=== PATIENT | female | born 1945 | race Caucasian/White ===

== ENCOUNTER 2020-01-31 14:45 | Outpatient (CLI) | payer MEDICARE, SELFPAY ==
--- NOTE | ~2020-01-31 | XR_ITS ---
EXAMINATION: XR knee RT min 4V DATE: 01/31/2020 15:01 INDICATION: Right knee pain. TECHNIQUE: 4 views of right knee were obtained. COMPARISON: Right knee radiograph 02/10/2011 FINDINGS: Bone alignment is normal. No fracture. There is mild osteoarthritis of patellofemoral allyson rtment. No knee joint effusion. IMPRESSION: 1. Mild right knee osteoarthritis. Reviewed, dictated and finalized at location A.
== END 2020-01-31 14:46 | disposition home or self-care (01) ==
PROVIDERS: PCP Internal Medicine; Visit Provider Nurse Practitioner
DX: M17.11 Unilateral primary osteoarthritis, right knee (principal)
CPT/HCPCS: 73564

== ENCOUNTER 2020-03-06 13:00 | Outpatient (RCR) | payer MEDICARE, SELFPAY ==
--- NOTE | 2020-03-06 14:09 | PTOPEVAL ---
PHYSICAL THERAPY EVALUATION AND PLAN OF CARE Thank you for referring Joselyn Sauceda to [facility] [place] [facility] [place]. Joselyn was not scheduled for further appointments at this time. She will call within 30 days of initiating care if she requires further services. Please review, sign, date and return this plan of care LUIS. I agree with and certify that the following plan of care is medically necessary. Referring Physician Date Attending Provider: Summer Charlton, ADVISER SALES-C Evaluation Diagnosis right knee pain Subjective Information Joselyn is here for c/o right Query Text:As Reported By Patient/ knee pain. She describes that Family 5 years ago she received a guided injection and the knee has done great until a few months ago. 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 The knee has started aching again. She years a compression brace on the knee, uses ice as needed, and started taking glucosamine several weeks ago. [employer] has stated that she is able to give her a chair if she has an order from physician. Self Report Pain Assessment Right Knee(s) Reported Pain Level 0 Pain Description Aching,Pressure Lowest Pain Intensity 0 Greatest Pain Intensity 8 Pain Aggravating Factors Weight Bearing/Standing Pain Behaviors None Pain Relief Interventions Used By Ice,Inactivity/Rest Patient Lower Extremity Muscle Strength Testing Hip Strength Left Hip Flexion Strength 5 Normal Hip Extension Strength 4- Good - Hip Abduction Strength 3+ Fair + Right Hip Flexion Strength 5 Normal Hip Extension Strength 4- Good - Hip Abduction Strength 4 Good Knee Strength Right Knee Flexion Strength 5 Normal Knee Extension Strength 4+ Good + Muscle Length Testing Piriformis w/Hip Flexion >90 Degrees (R) Mild Tightness,(L) Mild Tightness Left Hamstring Length -5 Query Text:(90 - 90 Position) Right Hamstring Length -5 Query Text:(90 - 90 Position) Stair Climbing Assessment Stair Climbing Assistive Devices Railings Number of Steps Climbed (Steps) 4 Number of Repetitions (Repetitions) 2 Technique Alternating Steps Stair Climbing Ability Independent Stair Climbing Comments right LE: hip adduction and
--- NOTE | 2020-04-08 08:13 | PCPTNOTE ---
PHYSICAL THERAPY DISCHARGE NOTE Attending Provider: Summer Charlton, SHAINA Patient:Joselyn Sauceda Date of :1945 Patient has not returned for any further treatments since 03/06/2020, therefore she will be discharged at this time. She was evaluated on 03/06/2020. At initial visit she was provided with home exercise program. Her chart was put on hold for 30 days while she performed HEP. She has not called with any questions or concerns in that time. Thank you for referring this patient to [facility]. Please review, sign, date and return this discharge summary LUIS. I have been updated about the patient's current status and I agree with discharge from the above service at this time. Referring Physician Date
== END 2020-04-08 13:59 | disposition home or self-care (01) ==
LOC: ANHPT 13:00
PROVIDERS: PCP Internal Medicine; Visit Provider Clinical Nurse Specialist
DX: M25.569 Pain in unspecified knee (principal)
CPT/HCPCS: 97110; 97161

== ENCOUNTER 2020-06-27 10:10 | Outpatient (NON) | payer MEDICARE, SELFPAY ==
[2020-06-28 13:35] LABS: SARS-CoV-2 RNA PCR Negative
== END 2020-06-27 10:11 ==
LOC: ANHCOVIDDT 10:11
PROVIDERS: PCP Internal Medicine; Visit Provider Clinical Nurse Specialist
DX: Z20.828 Contact with and (suspected) exposure to other viral communicable diseases (principal)
CPT/HCPCS: 87635; C9803; U0003

== ENCOUNTER 2021-03-03 12:31 | Outpatient (CLI) | payer MEDICARE, OTHER, SELFPAY ==
--- NOTE | ~2021-03-03 | XR_ITS ---
XR shoulder LT min 2V DATE: 03/03/2021 12:53 INDICATION: Left shoulder pain. No known injury. TECHNIQUE: 4 views COMPARISON: None FINDINGS: There is osteopenia. No fracture or dislocation, periosteal reaction or bone destruction or abnormal soft tissue calcifica tion of the left shoulder. Normal alignment at the glenohumeral and acromioclavicular joints. There are old healed fracture deformities of the posterolateral aspect of the left seventh and eighth ribs. Diffuse idiopathic skeletal hyperostosis of the thoracic spine. IMPRESSION: Osteopenia No significant abnormality of the left shoulder Reviewed, dictated and finalized at location B.
== END 2021-03-03 12:32 | disposition home or self-care (01) ==
PROVIDERS: PCP Internal Medicine; Visit Provider Clinical Nurse Specialist
DX: M85.812 Other specified disorders of bone density and structure, left shoulder (principal)
CPT/HCPCS: 73030

== ENCOUNTER 2021-04-08 11:00 | Outpatient (RCR) | payer MEDICARE, SELFPAY ==
--- NOTE | 2021-03-11 13:56 | PTOPEVAL ---
PHYSICAL THERAPY EVALUATION Thank you for referring Joselyn Sauceda to [facility].? Edna was evaluated for the dx of left shoulder pain/possible cervical radiculopathy. The patient is scheduled to be seen for therapy? 2 x/week for 4 weeks. Please review, sign, date and return this plan of care LUIS. I agree with and certify that the following plan of care is medically necessary. Referring Physician Date Attending Provider: SHAINA Lopez *PT Outpatient Evaluation Start: 03/11/21 12:35 Freq: Status: Active Protocol: Document 03/11/21 12:35 MLV (Rec: 03/11/21 13:25 MLV [id number]) Therapy Assessment Status Assessment Status Assessment Status Evaluation Evaluation Information Problem Diagnosis left shoulder pain Onset 1 month Cause lifting injury Additional Evaluation Detail The patient began having left shoulder pain after trying to lift a case of water bottles then fell and hit her left shoulder on an oak table, creating increased pain. The patient has tried heat, ice and tramadol w/o success f relief. The patient believes she needs stronger pain meds but was not given them. The pain gets worse after 2pm despite activities. Subjective Information The patient is retired and Query Text:As Reported By Patient/ walks for exercise. The Family patient lives in a group home apt and does not have to do housework. Diagnostic Tests X-Rays For This Problem Yes: no fractures, has osteopenia Pain Assessment Timing of Pain Assessment Timing of Pain Assessment Assessment Pain Scale Pain Scale Used Numeric (1 - 10) Self Report Pain Assessment Left Shoulder(s) Reported Pain Level 8 Pain Description Aching,Throbbing Pain Frequency Acute,Continuous Other Pain Description no prior shoulder pain hx Lowest Pain Intensity 6 Greatest Pain Intensity 10 Pain Aggravating Factors Exercise/Activity,Lifting, Sitting Pain Behaviors Irritable,Restless Pain Score Pain Score 8: Self Report Interventions Used Interventions Used By Clinicians Education Pain Relief Interventions Used By Heat,Ice,Medication Patient Other Alleviating Interventions musc
--- NOTE | 2021-03-23 10:42 | PCPTNOTE ---
Patient did not show up for scheduled appointment this date. Patient was called but no answer. Left a voicemail to call back about upcoming visits.
--- NOTE | 2021-04-08 11:39 | PTOPEVAL ---
PHYSICAL THERAPY DISCHARGE Thank you for referring Joselyn Sauceda to [facility].? The patient has completed 8 visits for the dx of left shoulder pain. Goals have been met. DC PT. Please review, sign, date and return this plan of care LUIS. I agree with and certify the following plan of care. Referring Physician Date Attending Provider: SHAINA Lopez *PT Outpatient Discharge Start: 03/11/21 12:35 Freq: Status: Active Protocol: Document 04/08/21 10:51 MLV (Rec: 04/08/21 11:39 MLV [id number]) Therapy Assessment Status Assessment Status Discharge Evaluation Information Problem Diagnosis left shoulder pain Cause lifting injury Additional Evaluation Detail The patient reports having no pain at her shoulder for at least 3-4 days and is using her baclofen less again. The patient feels between the STM, the meds and the exercises, she has greatly improved and will be able to manage on her own well. Pain Assessment Timing of Pain Assessment Timing of Pain Assessment Assessment Pain Scale Pain Scale Used Numeric (1 - 10) Self Report Pain Assessment Left Shoulder(s) Reported Pain Level 0 Pain Score Pain Score 0: Self Report Interventions Used Interventions Used By Clinicians Education,Exercise,Manual Therapy Techniques Pain Relief Interventions Used By Exercise,Massage Modalities Patient Cervical and Lumbar ROM Cervical ROM Reason Not Measured WFL/Left,WFL/Right Cervical Lateral Flexion Right (0-50) 22 Query Text:Active in Degrees Cervical Lateral Flexion Left (0-50) 22 Query Text:Active in Degrees Palpation Assessment Palpation Palpation 50-75% decrease in spasm at left upper trap moderate. Non- tender at left subscapularis muscle PT Clinical Summary Mrs. Sauceda has completed 8 visits for the dx of left shoulder pain. The patient has improved with a significant decrease in pain, muscle tightnesses, tenderness and the patient is I with continuing her HEP and STM using a cane. The patient is compliant and motivated to continue on her
== END 2021-04-09 16:41 | disposition home or self-care (01) ==
LOC: ANHPT 11:00
PROVIDERS: PCP Internal Medicine; Visit Provider Clinical Nurse Specialist
DX: M25.512 Pain in left shoulder (principal)
CPT/HCPCS: 97014; 97110; 97140; 97162; G0283

== ENCOUNTER 2021-05-19 11:31 | Outpatient (CLI) | payer MEDICARE, MEDICAID, SELFPAY ==
--- NOTE | ~2021-05-19 | CT_ITS ---
EXAMINATION: CT abdomen pelvis w con EXAM DATE: 05/19/2021 11:58 INDICATION: R10.32 - Left lower quadrant pain. TECHNIQUE: Spiral CT of the abdomen and pelvis was performed following intravenous injection of 100 m L Omnipaque 350. Axial, coronal and sagittal images of the abdomen and pelvis were reviewed. The do se-length product (DLP) for this examination was 444.91 mGy-cm. The exposure was tailored according to patient size (auto mA exposure control), and iterative reconstruction (ASIR) was used as additiona l dose reduction technique. There is no prior study for comparison. FINDINGS: The liver, spleen, adrenal glands and pancreas are unremarkable. Gallbladder is unremarkab le. No biliary obstruction. Portal and splenic veins are patent. Kidneys enhance symmetrically. T here is no hydronephrosis. The uterus is not identified and has likely been surgically resected. T he bladder is unremarkable. There is no retroperitoneal or pelvic lymphadenopathy. There is moderate sigmoid colonic diverticulosis. Extensive perirectosigmoid inflammation with suspec yumiko region of extraluminal feculent material measuring about 3 x 4 cm seen from axial images 145-153, appears to have wall and is most likely an early organizing peridiverticular abscess. Can't totally exclude this is large inflamed colonic diverticulum or any underlying inflammatory cancer. There is l arge duodenal diverticulum. There is expected amount of colonic stool. No free intraperitoneal gas. The heart is normal in si ze. There are no pericardial or pleural effusions. The lung bases are unremarkable. There are no o steoblastic or osteolytic lesions identified. IMPRESSION: Moderate sigmoid diverticulosis with extensive rectosigmoid inflammation, 3 x 4 cm collec tion most likely diverticulitis complicated by abscess. Can't totally exclude this is large inflamed colonic diverticulum or underlying inflammatory cancer. No free air. This was ordered as STAT examination. I called Zeinab Mota NP, office presently closed. Reviewed, dictated and finalized at location A. IMPRESSION: Moderate sigmoid diverticulosis with extensive rectosigmoid inflamm ation, 3 x 4 cm collection most likely diverticulitis complicated by abscess. C an't totally exclude this is large inflamed colonic diverticulum or underlying inflammatory cancer. No free air. This was ordered as STAT examination. I called Zeinab Mota NP, office pre sently closed.
[2021-05-19 11:54] LABS: Estimated Glomerular Filt Rate > 60
== END 2021-05-19 11:32 | disposition home or self-care (01) ==
PROVIDERS: PCP Internal Medicine; Visit Provider Nurse Practitioner
DX: K57.30 Diverticulosis of large intestine without perforation or abscess without bleeding (principal)
CPT/HCPCS: 74177; Q9967

== ENCOUNTER 2021-05-19 13:45 | Inpatient (IN) | payer MEDICARE, MEDICAID, SELFPAY ==
--- NOTE | ~2021-05-19 | XR_ITS ---
EXAMINATION: XR enema water soluble EXAM DATE: 05/21/2021 14:40 INDICATION: Better define recto-sigmoid junction see CT report. TECHNIQUE: Water-soluble enema was performed by radiologist Davian Arreguin. Balloon was inflated under fluoroscopy after small amount of contrast was administered to evaluate the rectal vault size. Dose r eduction digital pulsed fluoroscopy was used at 4 frames per second with DAP 1.0 Gycm2, and a total n umber of 66 images for the exam. Overhead images were obtained. Correlation made to CT abdomen pelvis from 05/19/2021, and comparison to a prior barium enema from 07/06/2013. FINDINGS: The rectum was normally distensible. There is moderate to severe narrowing of the sigmoid colon. On 1st attempt, contrast did not extend beyond this narrowed segment. Pressure was then reliev ed and additional fluoroscopic images obtained. A 2nd attempt at administering contrast was made and small amount of contrast made it beyond this segment which may have initially had spasm. Lumen did op en to approximately 1.5 cm in diameter as seen on sequence 1 image 46. Contrast leaked out of the rectum. The sigmoid colon beyond the stricture was stool-filled, most of t he colon was not evaluated. Extensive colonic diverticulosis was seen on the previous examination. The colonic diverticulum or feculent appearing collection described on CT did not opacify on this exa m. IMPRESSION: 1. Sigmoid colonic stricturing which could be from inflammation although underlying cancer not exclu dable. 2. Sigmoid and descending colonic diverticulosis. 3. Focal pocket described on CT did not fill with contrast on this limited exam. Reviewed, dictated and finalized at location A. IMPRESSION: 1. Sigmoid colonic stricturing which could be from inflammation although under lying cancer not excludable. 2. Sigmoid and descending colonic diverticulosis. 3. Focal pocket described on CT did not fill with contrast on this limited exa m.
--- NOTE | ~2021-05-19 | CT_ITS ---
EXAMINATION: CT brain wo con INDICATION: Headache COMPARISON: None TECHNIQUE: Standard unenhanced head CT. The dose-length product (DLP) was 605.33 mGy-cm. The mA was a djusted according to patient size. Iterative reconstruction technique was employed. FINDINGS: There is no acute intraparenchymal hemorrhage. No evidence of mass lesion. No evidence of a cute infarction. There is mild periventricular and subcortical hypodensity probably related to small vessel ischemic disease. There is mild prominence of the sulci and ventricles related to cerebral atr ophy. Intracranial calcified cerebral atherosclerosis is noted. There are no extra-axial collections. There is no mass effect or midline shift. Changes in the globes are likely from ocular lens surgery. The visualized sinuses and mastoid air cells are well aerated. IMPRESSION: 1. No acute intracranial abnormality. 2. Age related findings. Reviewed, dictated and finalized at location A.
[2021-05-19 13:54] VITALS: BP 116/49; PULSE 100; RESP 20; TEMP 36.1; O2SAT 98
[2021-05-19 14:12] LABS: Basophils Percent Auto 0.3 % (0.2-1.2); Eosinophils Percent Auto 0.1 % (0-4.4); Hematocrit 35.1 % (37.0-47.0); Hemoglobin 11.7 g/dL (12.0-15.0); Immature Granulocyte Absolute 0.04 K/mm3 (0.00-0.031); Immature Granulocyte Percent A 0.4 % (0-0.5); Lymphocytes Absolute Auto 0.97 K/mm3 (0.9-3.2); Lymphocytes Percent Auto 10.9 % (18.3-44.2); Mean Corpuscular HGB Conc 33.3 g/dl (32-36); Mean Corpuscular Hemoglobin 31.8 pg (26-34); Mean Corpuscular Volume 95.4 fl (80-100); Mean Platelet Volume 8.5 fl (7.4-10.4); Monocytes Absolute Auto 0.6 K/mm3 (0.1-0.6); Monocytes Percent Auto 6.5 % (2.6-8.5); Neutrophils Absolute Auto 7.3 K/mm3 (1.3-6.7); Neutrophils Percent Auto 81.8 % (45.5-73.1); Platelet Count Result 366 k/mm3 (150-375); Red Blood Count 3.68 M/mm3 (4.2-5.4); Red Cell Distribution Width 12.8 % (11.5-14.5); White Blood Count 8.9 K/mm3 (4.5-10.0)
[2021-05-19 14:23] LABS: Alanine Aminotransferase 13 U/L (4-35); Albumin Level 4.2 g/dL (3.5-5.1); Alkaline Phosphatase 125 U/L (38-126); Anion Gap 9 mmol/L (8-16); Aspartate Amino Transferase 52 U/L (14-36); Bilirubin,Total 0.6 mg/dL (0.2-1.3); Blood Urea Nitrogen 13 mg/dL (7-17); Carbon Dioxide 27 mmol/L (22-30); Chloride 104 mmol/L (98-107); Estimated CRCL calculation 41 ml/min; Estimated Glomerular Filt Rate > 60; Glucose 124 mg/dL (65-110); Lipase 39 U/L (23-300); Potassium 3.7 mmol/L (3.4-5.0); Sodium 140 mmol/L (137-145)
--- NOTE | 2021-05-19 19:01 | ED.ABDPAIN ---
HPI - Abdominal Pain General Chief Complaint: Abdominal Pain Stated Complaint: Abd Pain Time Seen by Provider: 05/19/21 18:54 Source: patient and RN notes reviewed Mode of arrival: ambulatory Limitations: no limitations History of Present Illness HPI narrative: Patient is 76 years old white female presents with left lower quadrant stabbing pain that started 4 days ago, patient denies any fever, chills, nausea, vomiting, radiation of pain, diarrhea, constipation, urinary symptoms. Patient is fully vaccinated for COVID-[address]. [address] abdomen pelvis with IV contrast today and showed diverticulitis with abscess formation. History of partial hysterectomy. History of parkinsonism. Patient does not smoke or drink or uses drugs. Patient lives alone. Related Data Home Medications Medication Instructions Recorded Confirmed cholecalciferol (vitamin D3) 25 1,000 unit PO DAILY 07/25/19 02/12/21 mcg (1,000 unit) capsule melatonin 5 mg capsule mg PO .qhs PRN cap 07/25/19 02/12/21 multivitamin 1 tablet PO DAILY 07/25/19 02/12/21 venlafaxine 75 mg tablet 75 mg PO BID 05/06/20 02/12/21 carbidopa 25 mg-levodopa 100 mg 3 tablet PO ONCE tablet 05/19/21 tablet entacapone 200 mg tablet 200 mg PO QID tablet 05/19/21 Allergies Allergy/AdvReac Type Severity Reaction Status Date / Time oxycodone Allergy Mild Rash Verified 05/19/21 19:11 povidone-iodine Allergy Unknown SEVERE RASH Verified 05/19/21 18:59 soap Allergy Unknown SEVERE RASH Verified 05/19/21 18:59 Sulfa (Sulfonamide Allergy Unknown RASH Verified 05/19/21 18:59 Antibiotics) Review of Systems Review of Systems: CONSTITUTIONAL: Denies fever, chills, or sweats. EYES: Denies visual changes, redness, or discharge. ENT: Denies rhinorrhea, congestion, sore throat, or otalgia. CARDIOVASCULAR: Denies chest pain, palpitations, or edema. RESPIRATORY: Denies cough or dyspnea. GASTROINTESTINAL: Left lower quadrant pain GENITOURINARY: Denies dysuria or hematuria. SKIN: Denies rash or itching. MUSCULOSKELETAL: Denies back pain, joint pain, or myalgia. NEUROLOGIC: Denies headache, numbness, or weakness. PSYCHIATRIC: Denies anxiety or depression. [facility] Past Medical History Medical History Breast cancer Chicken pox Hepatitis, unspecified Measles Mitral valve prolapse Mumps Osteopenia Parkinson disease Surgical History Surgical History History of cosmetic surgery fat transfer History of hysterectomy Social History Social History Smoking status: Never smoker Alcohol intake: never Exam Narrative: General appearance: Well-developed, well-nourished Skin: Normal color Head: Normocephalic, nontraumatic Eyes: Clear conjunctiva ENT: Oropharynx normal, ears normal, nose normal Neck: Supple, nontender Chest and respiratory: Airway patent, no respiratory distress, no accessory muscle use Heart: Regular rate/rhythm Abdomen: Soft, moderate tenderness left lower quadrant, slight guarding, no rebound, no organomegaly, quiet bowel sounds Vascular: Normal peripheral pulses, normal capillary refill. Musculoskeletal: Normal range of motion, nontender back Neurologic: Alert and oriented ?3, CROP ADJUSTER is normal as tested, no gross motor deficit Course Course Emergency Course: Stable Consultations Consultation #1: Dr. Edwards, accepted the consult Date: 05/19/21 Time: 20:36 Vital Signs Vital signs: Vital Signs Temperature 36.1 C L 05/19/21 13:54 Pulse Rate 100 05/19/21 13:54 Respiratory Rate 20 05/19/21 13:54 Blood Pressure 116/49 L
[2021-05-19] MEDS: SODIUM CHLORIDE 0.9% IV 1,000 ML 999 ML IV CONT (19:19)
[2021-05-19 19:22] VITALS: BP 146/67; PULSE 82; RESP 18; O2SAT 98
[2021-05-19 20:40] VITALS: BP 106/61; PULSE 87; RESP 20; O2SAT 94
[2021-05-19 22:22] VITALS: BP 140/74; PULSE 81; RESP 18; O2SAT 97
--- NOTE | 2021-05-19 22:35 | ADMGEN ---
This patient, Joselyn Sauceda, was admitted to 2 Medical Room 251-01. Patient/family oriented to hospital policies and general routines including ID bracelet, bed and alarms, visiting hours, pain management, procedures, bathroom and other care routines, personal items, smoking policy, room service/diet, and visiting hours. Information on how to activate the Rapid Response Team has been discussed. Patient/Family are encouraged to report perceived risks to care and to ask questions if they do not understand what they are told or what they should do.
[2021-05-19 22:43] VITALS: BP 145/64; PULSE 92; RESP 22; TEMP 35.8; O2SAT 95
[2021-05-19] MEDS: LACTATED RINGERS 1,000 ML 125 ML IV CONT (23:02)
[2021-05-20] VITALS (8 sets, daily range): BP systolic 110–148; BP diastolic 56–76; PULSE 76–96; RESP 16–22; TEMP 36–36.8; O2SAT 92–98
--- NOTE | 2021-05-20 01:11 | PM.IMHP ---
H&P: HPI History of Present Illness Date/Time: 05/20/21 01:11 Chief Complaint: Abdominal pain Narrative: This is a 76-year-old female with past medical history significant for Parkinson's disease, depression. Patient comes to the emergency room due to abdominal pain localized to the left lower quadrant she has had a small bowel movements with mucus but no blood in it for the last 3 days or so no nausea, no vomiting, no changes in her appetite, no diarrhea, no fevers ,no chills ,no rigors, no cough, no sputum production, no shortness of breath. Preliminary workup was significant for CT of abdomen and pelvis with rectosigmoid diverticulosis diverticulitis an area of fluid collection or abscess no free air. Patient has been admitted for further management treatment and evaluation. Review of Systems Review of Systems: Left lower quadrant Abdominal pain ,frequent smalll bowel movements. Constitutional: Constitutional: Denies chills, Denies fatigue, Denies fever(s), Denies lethargy, Denies malaise, Denies night sweats, Denies poor appetite and Denies weakness Eyes: Eyes: Denies change in vision ENT: Denies dysphagia, Denies nasal congestion, Denies nasal discharge, Denies nasal obstruction and Denies odynophagia Respiratory: Respiratory: Denies change in phlegm color, Denies cough, Denies excessive phlegm production, Denies dyspnea and Denies dyspnea on exertion Gastrointestinal: Gastrointestinal: Reports abdominal pain (Left lower quadrant), Denies dyspepsia, Denies diarrhea, Denies nausea and Denies vomiting Genitourinary: Genitourinary: Reports no additional female genitourinary complaints Musculoskeletal: Musculoskeletal: Reports no additional musculoskeletal complaints Neurologic: Reports Neuro-related abnormal movements, Denies frequent falls, Denies focal weakness and Denies Sensory deficit (Neuro) Psychiatric: Psychiatric: Reports no additional psychiatric complaints Endocrine: Endocrine: Reports no additional endocrine complaints Hematologic/Lymphatic: Hematologic/Lymphatic: Reports no additional hematologic/lymphatic complaints Allergic/Immunologic: Allergic/Immunologic: Reports no additional allergic/immunologic complaints [facility] Past Medical History Medical History (Updated 05/20/21 @ 01:25 by Sheyla Ortega MD) Breast cancer Chicken pox Hepatitis, unspecified Measles Mitral valve prolapse Mumps Osteopenia Parkinson disease Surgical History Surgical History History of cosmetic surgery fat transfer History of hysterectomy Family History Family History (Updated 05/19/21 @ 22:44 by Merary Edwards RN) Other Unknown family medical history Social History Social History Smoking status: Never smoker Alcohol intake: never Substance use type: does not use Spiritual care concerns: No Meds Home Medications and Allergies Home Medications Medication Instructions Recorded Confirmed Type cholecalciferol (vitamin D3) 25 1,000 unit PO DAILY 07/25/19 05/19/21 History mcg (1,000 unit) capsule melatonin 5 mg capsule 3 mg PO .qhs PRN cap 07/25/19 05/19/21 History multivitamin 1 tablet PO DAILY 07/25/19 05/19/21 History venlafaxine 75 mg tablet 75 mg PO BID 05/06/20 05/19/21 History doxepin 10 mg capsule 10 mg PO .HS PRN #30 cap 09/25/20 05/19/21 Rx baclofen 10 mg tablet 10 mg PO BID PRN #20 tablet 02/12/21 05/19/21 Rx carbidopa 25 mg-levodopa 100 mg 3 tablet PO ONCE tablet 05/19/21 05/19/21 History tablet entacapone 200 mg tablet 200 mg PO QID tablet 05/19/21 05/19/21 History loteprednol etabonate 1 drp EACH EYE DAILY 05/19/21 05/19/21 History Allergies Allergy/AdvReac Type Severity Reaction Status Date / Time oxycodone Allergy Mild Rash Verified 05/19/21 19:11 povidone-iodine Allergy Unknown SEVERE RASH Verified 05/19/21 18:59 soap Allergy Unknown SEVERE RASH Verified
[2021-05-20] MEDS: CARBIDOPA/LEVODOPA 25/100 MG TABLET 2 TABLET PO ×3 (01:46→22:26)
[2021-05-20] MEDS: ENTACAPONE 200 MG TABLET PO ×5 (01:46→22:27)
[2021-05-20] MEDS: MELATONIN 3 MG TABLET PO ×2 (01:46→22:26)
[2021-05-20] MEDS: DOXEPIN HCL 10 MG CAPSULE PO ×2 (01:48→22:27)
[2021-05-20] MEDS: CARBIDOPA/LEVODOPA 12.5/50 MG TABLET 1 TABLET PO ×3 (02:34→22:27)
[2021-05-20] MEDS: LACTATED RINGERS 1,000 ML 125 ML IV CONT ×3 (06:44→23:51)
--- NOTE | 2021-05-20 07:22 | PM.IMPN ---
Progress Note: A&P Assessment and Plan (1) Diverticulitis large intestine: Qualifiers: Diverticulitis bleeding: without bleeding Diverticulitis complication: with abscess Qualified Code(s): K57.20 - Diverticulitis of large intestine with perforation and abscess without bleeding Code(s): K57.32 - Diverticulitis of large intestine without perforation or abscess without bleeding Status: Acute Assessment and Plan: Admitted to regular medical floor CT of abdomen and pelvis reviewed; see above. Continue Zosyn Follow up cultures Continue conservative management Start clear liquid diet. Advance diet as tolerated. Monitor labs. Serial abdominal exams. If she shows any clinical decline, then we could consider a repeat CT scan in the future to see if the 3 x 4 cm area becomes a more well-organized fluid collection that could be percutaneously drained. No plans for surgical intervention at this point. 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 Preliminary workup was significant for CT of abdomen and pelvis with rectosigmoid diverticulosis diverticulitis an area of fluid collection or abscess no free air. Patient has been admitted for further management treatment and evaluation. Surgical service was consulted. They observed evidence of rectosigmoid inflammation and a 3 x 4 cm area of what appears to be fluid that it is difficult to decipher if this is in or out of the bowel. The Radiologist feels that this would not be amenable to drainage, considering it is not definitive if this is an abscess or part of the bowel and this is also an area that would not easily be reached with percutaneous drainage. Clinically, the patient is not having any abdominal pain today and seems to already be improving with the IV antibiotics. S: Patient was examined at the bedside. Improvement of abdominal pain. No complaints. Review of Systems Constitutional: Constitutional: Denies chills, Denies fatigue, Denies fever(s), Denies frequent falls, Denies lethargy, Denies malaise, Denies night sweats, Denies poor appetite and Denies weakness Eyes: Eyes: Denies change in vision ENT: Denies dysphagia, Denies nasal congestion, Denies nasal discharge, Denies nasal obstruction and Denies odynophagia Cardiovascular: Cardiovascular: Reports no additional cardiovascular complaints, Denies dyspnea and Denies dyspnea on exertion Respiratory: Respiratory: Reports no additional respiratory complaints, Denies change in phlegm color, Denies cough, Denies excessive phlegm production, Denies dyspnea and Denies dyspnea on exertion Gastrointestinal: Gastrointestinal: Reports abdominal pain (Left lower quadrant), Denies dysphagia, Denies dyspepsia, Denies diarrhea, Denies nausea, Denies odynophagia and Denies vomiting Genitourinary: Genitourinary: Reports no additional female genitourinary complaints Musculoskeletal: Musculoskeletal: Reports no additional musculoskeletal complaints Integumentary/Breasts: Skin/Breast: Reports system reviewed and no additional complaints, except as docu Neurologic: Reports system reviewed and no additiona
[2021-05-20 08:12] LABS: Basophils Absolute Auto 0.1 K/mm3 (0.0-0.1); Basophils Percent Auto 0.7 % (0.2-1.2); Eosinophils Absolute Auto 0.1 K/mm3 (0-0.3); Eosinophils Percent Auto 1.2 % (0-4.4); Hematocrit 31.6 % (37.0-47.0); Hemoglobin 10.5 g/dL (12.0-15.0); Immature Granulocyte Absolute 0.02 K/mm3 (0.00-0.031); Immature Granulocyte Percent A 0.3 % (0-0.5); Lymphocytes Absolute Auto 1.39 K/mm3 (0.9-3.2); Lymphocytes Percent Auto 20.7 % (18.3-44.2); Mean Corpuscular HGB Conc 33.2 g/dl (32-36); Mean Corpuscular Hemoglobin 32.7 pg (26-34); Mean Corpuscular Volume 98.4 fl (80-100); Mean Platelet Volume 8.5 fl (7.4-10.4); Monocytes Absolute Auto 0.8 K/mm3 (0.1-0.6); Monocytes Percent Auto 12.1 % (2.6-8.5); Neutrophils Absolute Auto 4.4 K/mm3 (1.3-6.7); Platelet Count Result 311 k/mm3 (150-375); Red Blood Count 3.21 M/mm3 (4.2-5.4); Red Cell Distribution Width 12.8 % (11.5-14.5); White Blood Count 6.7 K/mm3 (4.5-10.0)
[2021-05-20 08:15] LABS: Anion Gap 5 mmol/L (8-16); Blood Urea Nitrogen 10 mg/dL (7-17); Calcium 9.2 mg/dL (8.4-10.2); Carbon Dioxide 27 mmol/L (22-30); Chloride 108 mmol/L (98-107); Estimated CRCL calculation 52 ml/min; Estimated Glomerular Filt Rate > 60; Glucose 98 mg/dL (65-110); Magnesium 2.1 mg/dL (1.6-2.3); Potassium 3.7 mmol/L (3.4-5.0); Sodium 140 mmol/L (137-145)
[2021-05-20] MEDS: CARBIDOPA/LEVODOPA 25/100 MG TABLET 3 TABLET PO ×2 (08:32→18:28)
[2021-05-20] MEDS: VENLAFAXINE HCL 75 MG TABLET PO ×2 (08:36→18:29)
[2021-05-20] MEDS: CHOLECALCIFEROL 1,000 UNITS TABLET 1000 UNITS PO (09:27)
[2021-05-20] MEDS: LOTEPREDNOL ETABONATE 0.5% OPH 5 ML BOTTLE 1 DROP EACH EYE (09:27)
[2021-05-20] MEDS: MULTIVITAMINS THERAPEUTIC TAB (*BKC) 1 TABLET PO (09:27)
--- NOTE | 2021-05-20 10:40 | PC.NURSE ---
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 WILL NOTIFY PROVIDER OF CHANGES TO HOME MEDICATION LIST.
--- NOTE | 2021-05-20 11:16 | PM.CNGS ---
Assessment and Plan Assessment and plan (1) Diverticulitis large intestine: Qualifiers: Diverticulitis bleeding: without bleeding Diverticulitis complication: with abscess Qualified Code(s): K57.20 - Diverticulitis of large intestine with perforation and abscess without bleeding Code(s): K57.32 - Diverticulitis of large intestine without perforation or abscess without bleeding Status: Acute Assessment and Plan: CT scan reviewed independently and also with the Radiologist. There is evidence of rectosigmoid inflammation and a 3 x 4 cm area of what appears to be fluid that it is difficult to decipher if this is in or out of the bowel. Differential would be that this could be an early small adjacent abscess that is not well organized yet versus a large diverticulum. The Radiologist feels that this would not be amenable to drainage, considering it is not definitive if this is an abscess or part of the bowel and this is also an area that would not easily be reached with percutaneous drainage. Clinically, the patient is not having any abdominal pain today and seems to already be improving with the IV antibiotics. We would recommend to continue IV antibiotics and we are okay with trying clear liquids today. WBC normal and she is afebrile. Will repeat labs for tomorrow. If she shows any clinical decline, then we could consider a repeat CT scan in the future to see if the 3 x 4 cm area becomes a more well-organized fluid collection that could be percutaneously drained. No plans for surgical intervention at this point. Also to note, she has a history of a redundant sigmoid colon and has been unable to have a full colonoscopy in the past. She has had multiple virtual colonoscopies as an alternative, last being in July of 2019. This showed diverticulosis and mild inflammation of the redundant sigmoid colon. No polyps noted > 5 mm. She also had a positive Cologaurd about 2 years ago, prompting this virtual colonoscopy. We may need to consider having her see a [employer] after this acute episode has resolved, to potentially have them attempt a flex sigmoidoscopy to try and evaluate this area for potential malignancy. Thank you for allowing us to see the patient in consultation and we will continue to follow along with you. (2) Parkinson disease: Code(s): G20 - Parkinson's disease Status: Acute Assessment and Plan: Continue medications per Hospitalist. Additional Plan I have discussed the patient's case and plan of care with Dr. Edwards. History of Present Illness Consult details Consult date: 05/21/21 Reason for consult: other (Diverticulitis with possible adjacent abscess) Requesting physician: Petrona Steele MD Narrative: This is a 76-year-old female with a history of Parkinson's disease, who presented to her primary care office yesterday for evaluation of generalized abdominal pain. She reports experiencing some constipation over a week ago and noticing her hemorrhoids had ?flared up?. She started noticing some streaking of red blood in her stool after having a bowel movement. Typically, she notices that her hemorrhoids will reduce after having the BM. No pain or itching. About 1 week ago, she had a bratwurst for lunch and began experiencing some cramping abdominal pain later throughout the day. This seemed generalized and was not localized at that time. This was mild in nature. She reports attributing this to gas pains. The pain persisted over the next few days and began to localize to the left lower quadrant over time. She noticed her stools became more loose than normal and she noticed some mucousy liquid from her rectum at times. She reports having some incontinent leakage of very small amounts of liquid stool over the past week as well. This is atypical for her. No fever chills. She denies any nausea or vomiting. She has been tolerating her diet. Due to the persistent symptoms, she did present
--- NOTE | 2021-05-20 15:13 | PC.NURSE ---
On 05/20/21, the student, [Keke], provided care and completed [employer] documentation on this patient. I have reviewed the student's documentation and agree with the findings.
[2021-05-21] VITALS (7 sets, daily range): BP systolic 120–151; BP diastolic 63–73; PULSE 77–100; RESP 16–22; TEMP 35.8–36.6; O2SAT 90–98
[2021-05-21 08:16] LABS: Basophils Percent Auto 0.4 % (0.2-1.2); Eosinophils Absolute Auto 0.1 K/mm3 (0-0.3); Hematocrit 30.6 % (37.0-47.0); Hemoglobin 10.2 g/dL (12.0-15.0); Immature Granulocyte Absolute 0.03 K/mm3 (0.00-0.031); Immature Granulocyte Percent A 0.4 % (0-0.5); Lymphocytes Absolute Auto 1.27 K/mm3 (0.9-3.2); Lymphocytes Percent Auto 17.5 % (18.3-44.2); Mean Corpuscular HGB Conc 33.3 g/dl (32-36); Mean Corpuscular Hemoglobin 32.5 pg (26-34); Mean Corpuscular Volume 97.5 fl (80-100); Mean Platelet Volume 8.7 fl (7.4-10.4); Monocytes Absolute Auto 0.7 K/mm3 (0.1-0.6); Monocytes Percent Auto 9.9 % (2.6-8.5); Neutrophils Absolute Auto 5.1 K/mm3 (1.3-6.7); Neutrophils Percent Auto 70.8 % (45.5-73.1); Platelet Count Result 331 k/mm3 (150-375); Red Blood Count 3.14 M/mm3 (4.2-5.4); Red Cell Distribution Width 12.6 % (11.5-14.5); White Blood Count 7.3 K/mm3 (4.5-10.0)
[2021-05-21 08:26] LABS: Anion Gap 8 mmol/L (8-16); Blood Urea Nitrogen 7 mg/dL (7-17); Calcium 9.4 mg/dL (8.4-10.2); Carbon Dioxide 26 mmol/L (22-30); Chloride 108 mmol/L (98-107); Estimated CRCL calculation 52 ml/min; Estimated Glomerular Filt Rate > 60; Glucose 100 mg/dL (65-110); Potassium 3.5 mmol/L (3.4-5.0); Sodium 142 mmol/L (137-145)
[2021-05-21] MEDS: CARBIDOPA/LEVODOPA 25/100 MG TABLET 3 TABLET PO ×2 (08:47→16:58)
[2021-05-21] MEDS: VENLAFAXINE HCL 75 MG TABLET PO ×2 (08:47→16:58)
[2021-05-21] MEDS: MULTIVITAMINS THERAPEUTIC TAB (*BKC) 1 TABLET PO (08:48)
[2021-05-21] MEDS: CHOLECALCIFEROL 1,000 UNITS TABLET 1000 UNITS PO (08:48)
[2021-05-21] MEDS: ENTACAPONE 200 MG TABLET PO ×4 (08:48→22:26)
[2021-05-21] MEDS: LACTATED RINGERS 1,000 ML 125 ML IV CONT ×2 (09:09→19:31)
[2021-05-21] MEDS: CARBIDOPA/LEVODOPA 12.5/50 MG TABLET 1 TABLET PO ×2 (12:21→22:28)
[2021-05-21] MEDS: CARBIDOPA/LEVODOPA 25/100 MG TABLET 2 TABLET PO ×2 (12:22→22:28)
[2021-05-21] MEDS: LOTEPREDNOL ETABONATE 0.5% OPH 5 ML BOTTLE 1 DROP EACH EYE (12:23)
--- NOTE | 2021-05-21 12:54 | PM.IMPN ---
Progress Note: A&P Assessment and Plan (1) Diverticulitis large intestine: Qualifiers: Diverticulitis bleeding: without bleeding Diverticulitis complication: with abscess Qualified Code(s): K57.20 - Diverticulitis of large intestine with perforation and abscess without bleeding Code(s): K57.32 - Diverticulitis of large intestine without perforation or abscess without bleeding Status: Acute Assessment and Plan: PAtient is imrpoving cliniclaly. Advance to a full liquid diet Continue Zosyn Follow up cultures Continue conservative management Start clear liquid diet. Monitor labs. Serial abdominal exams. If she shows any clinical decline, then we could consider a repeat CT scan in the future to see if the 3 x 4 cm area becomes a more well-organized fluid collection that could be percutaneously drained. No plans for surgical intervention at this point. (2) LLQ abdominal pain: Code(s): R10.32 - Left lower quadrant pain Status: Acute Assessment and Plan: Likely secondary to diverticulitis Continue pain control Supportive care (3) Parkinson disease: Code(s): G20 - Parkinson's disease Status: Acute Assessment and Plan: Continue home meds Follow-up in outpatient setting (4) Mitral valve prolapse: Code(s): I34.1 - Nonrheumatic mitral (valve) prolapse Status: Acute Assessment and Plan: Unchanged Subjective Date/time seen: 05/21/21 12:54 S: PAtient is doing a lot better. She reports only mild abdominal pain. She tolerated a clear liquid diet well. Review of Systems Constitutional: Constitutional: Denies chills, Denies fatigue, Denies fever(s), Denies frequent falls, Denies lethargy, Denies malaise, Denies night sweats, Denies poor appetite and Denies weakness Eyes: Eyes: Denies change in vision ENT: Denies dysphagia, Denies nasal congestion, Denies nasal discharge, Denies nasal obstruction and Denies odynophagia Cardiovascular: Cardiovascular: Reports no additional cardiovascular complaints, Denies dyspnea and Denies dyspnea on exertion Respiratory: Respiratory: Reports no additional respiratory complaints, Denies change in phlegm color, Denies cough, Denies excessive phlegm production, Denies dyspnea and Denies dyspnea on exertion Gastrointestinal: Gastrointestinal: Reports abdominal pain (Left lower quadrant), Denies dysphagia, Denies dyspepsia, Denies diarrhea, Denies nausea, Denies odynophagia and Denies vomiting Genitourinary: Genitourinary: Reports no additional female genitourinary complaints Musculoskeletal: Musculoskeletal: Reports no additional musculoskeletal complaints Integumentary/Breasts: Skin/Breast: Reports system reviewed and no additional complaints, except as docu Neurologic: Reports system reviewed and no additional complaints, except as documented, Reports Neuro-related abnormal movements, Denies frequent falls, Denies focal weakness, Denies Sensory deficit (Neuro) and Denies weakness Psychiatric: Psychiatric: Reports no additional psychiatric complaints Endocrine: Endocrine: Reports no additional endocrine complaints and Denies fatigue Hematologic/Lymphatic: Hematologic/Lymphatic: Reports no additional hematologic/lymphatic complaints Allergic/Immunologic: Allergic/Immunologic: Reports no additional allergic/immunologic complaints Exam Narrative: Patient is laying in bed. Const: General: cooperative, comfortable, no acute distress, well developed, alert, awake and other (Well-appearing) Nutritional Appearance: average body habitus Orientation/consciousness: patient oriented x3 HENMT: Head: normal to inspection, normocephalic and atraumatic Ears: hearing grossly normal bilaterally General nose exam: Normal external nose present Face and sinus: normal facial exam Mouth: Yes Normal oral and palatal mucosa present Eyes: General: appearance normal, both eyes and all related structures Alignment and Position: ali
--- NOTE | 2021-05-21 13:24 | PM.PNGS ---
Progress Note: A&P Assessment and Plan (1) Diverticulitis large intestine: Qualifiers: Diverticulitis bleeding: without bleeding Diverticulitis complication: with abscess Qualified Code(s): K57.20 - Diverticulitis of large intestine with perforation and abscess without bleeding Code(s): K57.32 - Diverticulitis of large intestine without perforation or abscess without bleeding Status: Acute Assessment and Plan: CT evidence of rectosigmoid inflammation and a 3 x 4 cm area of what appears to be fluid that it is difficult to decipher if this is in or out of the bowel. Differential would be that this could be an early small adjacent abscess that is not well organized yet versus a large diverticulum. After speaking with Radiology this would not be amenable for drainage at this time due to location and uncertainty of this being an abscess or part of the bowel. Dr. Edwards reviewed the CT with the Radiologist today. Plan will be to order a Gastrografin enema today and see if this will provide more information on the 3 x 4 cm area of either a poorly organized fluid collection versus large bowel diverticulum. Depending on the Gastrografin enema results, may consider have the patient referred to GI for an attempted colonoscopy or at least flex sigmoidoscopy. Continue IV Zosyn for now. Will keep her on clear liquids for planned Gastrografin enema today. If this is unable to be done today, then she could have full liquids for dinner and put back to clear liquids tomorrow morning. (2) Parkinson disease: Code(s): G20 - Parkinson's disease Status: Acute Assessment and Plan: Continue medications per Hospitalist. (3) Duodenal diverticulum: Code(s): K57.10 - Diverticulosis of small intestine without perforation or abscess without bleeding Status: Acute Assessment and Plan: Large duodenal diverticulum incidentally noted on CT. Discussed with the patient so that she is aware, but this is not causing her acute symptoms. (4) Left renal mass: Code(s): N28.89 - Other specified disorders of kidney and ureter Status: Acute Assessment and Plan: With Dr. Edwards's review of the CT scan with the Radiologist today, incidentally noted was a possible left renal mass versus lobulation along the midpole posterior cortex. We instructed the patient to follow-up with her PCP after discharge to set her up for an MRI w/wo contrast to further evaluate this mass. She may require Urology referral as well, but this can all be done as an outpatient after her acute issues mentioned above have resolved. We discussed all of this in detail with the patient and answered all questions. (5) External hemorrhoid: Code(s): K64.4 - Residual hemorrhoidal skin tags Status: Acute Assessment and Plan: External hemorrhoid noted on rectal exam. Likely the cause of her rectal bleeding she mentions. This is not thrombosed. Recommended to continue witch isaac as she has been doing, and could also add Preparation H topically if needed. If possible, also recommended sitz baths when she goes back to [place] if she has a bath available. Additional Plan I have discussed the patient's case and plan of care with Dr. Edwards. Subjective Subjective Date/Time Seen: 05/21/21 13:00 Patient reports: no new complaints, feels better, flatus, bowel movement and afebrile Interval history: Patient seen and examined today with Dr. Edwards. She reports feeling even better today. She denies any abdominal pain, nausea, or vomiting. She reports her stool is becoming more formed. No other specific complaints at this time. Review of Systems Review of Systems: All systems reviewed & are unremarkable except as noted in HPI and below Constitutional: Constitutional: Denies chills and Denies fever(s) Exam Const: General: no acute distress and awake GI: Inspection: non-distended and no visible herniation GI Palp: Yes Soft
[2021-05-21] MEDS: WITCH HAZEL 40 PADS 1 PAD TOPICAL (16:58)
[2021-05-21] MEDS: BACLOFEN 10 MG TABLET PO ×2 (17:16→20:51)
--- NOTE | 2021-05-21 19:30 | PC.NURSE ---
Went to room to hang IV bag and met patient coming out of bathroom. Patient states she fell while in the bathroom. Patient states she was sitting on the toilet and when she went to stand up, she lost her balance and fell into the wall and onto the floor. Patient states she hit her forehead against the wall when she fell. Bruised area noted to middle of forehead. No other injuries noted. Patient denies further injury or complaints. Assisted patient to bed. Patient denies dizziness or lightheadedness. Ice pack applied to forehead. VS: temp 97.1, HR 88, RR 22, BP 151/70, pulse ox 90% on room air. Neuro checks WNL. Called Larissa AMBROSIO and she states she is seeing a patient and will come out to discuss situation shortly. Lavell Bennett RN (who was also present in the room when patient reported fall) will discuss with Larissa AMBROSIO. Notified Uma Mason RN nursing paralegal supervisor also.
--- NOTE | 2021-05-21 20:00 | PM.EVENT ---
Event Note Event Note Event Note: S: I received a call from the patient's nurse with reports that the patient had a fall. Patient tells me that she got up to use the restroom and when she was getting up from the toilet seat she felt unsteady in a bit lightheaded, causing her to fall forward into the wall. Within a short period of time she developed a right frontal hematoma. She denies loss of consciousness in the fall and denies any other injuries. Specifically she denies diplopia, confusion, nausea, vomiting, weakness, and paresthesias. O: Chronically ill elderly female, supine in bed in no distress. She has an approximately 2 cm oval-shaped contusion with underlying swelling on the right forehead to which an ice packed has been placed. Patient has frequent movements, mostly of the lower extremities, which she relates to her Parkinson's. No other neurologic deficits. Regular rate and rhythm. Generalized pallor. No significant edema. A: Right frontal hematoma secondary to fall from toilet. P: Stat brain CT to rule out intracranial bleed. Initiate fall precautions.
--- NOTE | 2021-05-21 20:36 | PC.NURSE ---
Larissa Westbrook ordered head CT w/o contrast and q4hr neuro checks post-fall.
[2021-05-21] MEDS: DOXEPIN HCL 10 MG CAPSULE PO (22:26)
[2021-05-21] MEDS: MELATONIN 3 MG TABLET PO (23:18)
[2021-05-22 04:00] VITALS: BP 137/56; PULSE 84; RESP 18; TEMP 36.2; O2SAT 95
[2021-05-22] MEDS: LACTATED RINGERS 1,000 ML 125 ML IV CONT (05:37)
[2021-05-22 08:00] VITALS: BP 144/68; PULSE 78; RESP 18; TEMP 36.3; O2SAT 94
[2021-05-22] MEDS: CHOLECALCIFEROL 1,000 UNITS TABLET 1000 UNITS PO (08:57)
[2021-05-22] MEDS: MULTIVITAMINS THERAPEUTIC TAB (*BKC) 1 TABLET PO (08:57)
[2021-05-22] MEDS: VENLAFAXINE HCL 75 MG TABLET PO ×2 (08:57→19:35)
[2021-05-22] MEDS: ENTACAPONE 200 MG TABLET PO ×4 (08:57→23:49)
[2021-05-22] MEDS: CARBIDOPA/LEVODOPA 25/100 MG TABLET 3 TABLET PO ×2 (08:57→19:34)
--- NOTE | 2021-05-22 11:35 | PM.PNGS ---
Progress Note: A&P Assessment and Plan (1) Diverticulitis large intestine: Qualifiers: Diverticulitis bleeding: without bleeding Diverticulitis complication: with abscess Qualified Code(s): K57.20 - Diverticulitis of large intestine with perforation and abscess without bleeding Code(s): K57.32 - Diverticulitis of large intestine without perforation or abscess without bleeding Status: Acute Assessment and Plan: CT evidence of rectosigmoid inflammation and a 3 x 4 cm area of what appears to be fluid that it is difficult to decipher if this is in or out of the bowel. Differential would be that this could be an early small adjacent abscess that is not well organized yet versus a large diverticulum. After speaking with Radiology this would not be amenable for drainage at this time due to location and uncertainty of this being an abscess or part of the bowel. A Gastrografin enema on 05/21 Showed what appears to be significantly redundant sigmoid with some narrowing slightly proximal to the rectosigmoid junction. 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 There was no extravasation of dye. Therefore, I have discussed the plan with the patient to switch to oral antibiotics and repeat CT scan of the pelvis with the IV contrast in approximately 10 days. ( possibly my TuesdayJune 01) patient with an see me in the office later that week. Then if all continues to go well at approximately 3 weeks following that test consider consider to have the patient referred to GI for an attempted colonoscopy with a pediatric colonoscope or at least flex sigmoidoscopy up to the point of the stricture to rule out any mucosal abnormalities easily seen with a gentle use of the scope. This would mainly be used to rule out a large polyp contributing to this or cancer. Patient used to go to Dr. Golden and so has now selected to see Dr. Maciel here at [facility] for this. Stop IV Zosyn for now and switch to oral antibiotics using Levaquin and Flagyl if okay with the hospitalist. Will advance her to and keep her on a low-fiber diet in view of the stricture. Have discussed this with her and will also get a dietitian consult to provide her with verbal and written instructions and let her ask questions. She believes that [facility] where she gets her meals would be amenable to adjusting her diet or she will make arrangements have low-fiber options on hand in her apartment. At that point we will need to then decide between possible dilation of the stricture versus a laparoscopic hand assisted left hemicolectomy due to her extensive diverticular disease and redundant sigmoid colon. (2) Parkinson disease: Code(s): G20 - Parkinson's disease Status: Acute Assessment and Plan: Continue medications per Hospitalist. (3) Duodenal diverticulum: Code(s): K57.10 - Diverticulosis of small intestine without perforation or abscess without bleeding Status: Acute Assessment and Plan: Large duodenal diverticulum incidentally noted on CT. Discussed with the patient so that she is aware, but this is not causing her acute symptoms. (4) Left renal mass: Code(s): N28.89 - Other specified disorders of kidney and ureter Status: Acute Assessment and Plan: With Dr. Edwards's review of the CT scan with the Radiologist on 05/21, incidentally noted was a possible left renal mass versus lobulation along the midpole posterior cortex. We instructed the patient to follow-up with her PCP after discharge to set her up for an MRI w/wo contrast to further evaluate this mass. The other option would be for the PCP to refer to a urologist prior to imaging and let them weigh in on appropriate evaluation and management. This can all be done as an outpatient after her acute issues mentioned above have resolved. All of this has been disscussed in detail with th
[2021-05-22 12:00] VITALS: BP 145/65; PULSE 93; RESP 22; TEMP 36.6; O2SAT 96
--- NOTE | 2021-05-22 12:33 | PCDIET ---
Dietitian consult for low fiber diet instruction. See Nutritional Teaching Intervention. Thank you for the consult.
[2021-05-22] MEDS: LOTEPREDNOL ETABONATE 0.5% OPH 5 ML BOTTLE 1 DROP EACH EYE (13:07)
--- NOTE | 2021-05-22 14:10 | PM.IMPN ---
Progress Note: A&P Additional Plan START OF DOCTOR JERMAN?S PROGRESS NOTE Subjective: The patient indicates that her abdominal pain has resolved. Overnight she denies fever, rigors, nausea, vomiting, cough, wheeze, chest pain, dyspnea, or any other constitutional complaints. She is tolerating her diet well. Per project manager/design manager, patient had a fall event. CT brain negative. I have discussed with the patient her current medical condition plan of care and answered all questions Objective: General: -Alert -No acute distress -No dyspnea -No tachypnea Heart: -Regular rate -Regular rhythm -No murmurs -No gallops -No rubs Lungs: -No wheeze -No rhonchi -No rales Abdomen: -Normal bowel sounds in all four quadrants -No rebound -No guarding -No tenderness Extremities: -2/4 pulse in all four extremities -No clubbing -No cyanosis -No edema Additional Details / Additional Findings / Exceptions / Miscellaneous: Pertinent Laboratory Results / Pertinent Radiology Results / Pertinent Diagnostic Results / Pertinent Vital Signs: Blood pressure 145/65, pulse 93, respirations 22 Assessment / Plan: Diverticulitis. I appreciate surgery evaluate the patient. Flagyl 500 mg p.o. q.8 hours plus Zosyn 3.375 g IV q.6 hours. Upon discharge, patient will need follow-up with Gastroenterology had will perform repeat CT of the abdomen pelvis 2 weeks post discharge with IV contrast Sigmoid stricture. Outpatient follow-up with Gastroenterology Hypertension. Metoprolol 25 mg p.o. b.i.d. Muscle spasm Parkinson's disease. Carbidopa/levodopa p.o.: Per home dose/frequency plus Comtan 200 mg p.o. q.i.d. Depression. Effexor 75 mg p.o. b.i.d. History of breast cancer. Outpatient follow-up with Hematology/Oncology if she still being monitored for his medical condition History of hepatitis, not otherwise specified Mitral valve prolapse Osteopenia Anemia. Monitor hemoglobin level intermittently. Check serum ferritin, iron panel, fecal occult blood DVT prophylaxis. Bilateral SCDs Disposition: Because of patient's fall on the night of May 21, 2021, will request a Physical therapy and Occupational therapy evaluate the patient. If they provide clearance, I will discharge the patient on this day of May 22, 2021 END OF DOCTOR JERMAN?S PROGRESS NOTE Subjective Date/time seen: 05/22/21 14:10 Objective Data Vital Signs Vital Signs: Vital Signs - 24 hr 05/21/21 17:03 05/21/21 19:48 05/21/21 23:26 Temperature 96.9 F L 97.1 F L 96.5 F L Pulse Rate 89 88 100 Respiratory Rate 16 22 H 22 H Blood Pressure 120/63 151/70 H 149/73 H Pulse Oximetry 96 90 90 05/22/21 04:00 05/22/21 08:00 05/22/21 12:00 Temperature 97.1 F L 97.4 F L 97.8 F Pulse Rate 84 78 93 Respiratory Rate 18 18 22 H Blood Pressure 137/56 L 144/68 H 145/65 H Pulse Oximetry 95 94 96 Intake/Output Intake/Output: Intake & Output 05/19/21 05/20/21 05/21/21 05/22/21 23:59 23:59 23:59 23:59 Intake Total 1100 3790 3575 1560 Output Total 200 Balance 1100 3590 3575 1560 Meds/Results Medications: Active Medications Generic Name Dose Route Start Last Admin Trade Name Freq PRN Reason Stop Dose Admin Baclofen 10 mg 05/20/21 01:10 05/21/21 20:51 Baclofen 10 Mg Tablet PO 10 mg BID PRN Administration muscle spasticity Carbidopa/Levodopa 3 tablet 05/20/21 08:00 05/22/21 08:57 Carbidopa/Levodopa 25/100 Mg Tablet PO 3 tablet 0800,1700 AMY Administration Carbidopa/Levodopa 2 tablet 05/20/21 01:35 05/21/21 22:28 Carbidopa/Levodopa 25/100 Mg Tablet PO 2 tablet 1200,2200 AMY Administration Carbidopa/Levodopa 1 tablet 05/20/21 01:55 05/21/21 22:28 Carbidopa/Levodopa 12.5/50 Mg Tablet PO 1 tablet 1200,2200 AMY Administration Doxepin HCl 10 mg 05/20/21 01:10 05/21/21 22:26 Doxepin Hcl 10 Mg Capsule PO 10 mg HS PRN Administration insomnia Entacapo
[2021-05-22] MEDS: CARBIDOPA/LEVODOPA 12.5/50 MG TABLET 1 TABLET PO ×2 (15:05→23:46)
[2021-05-22] MEDS: CARBIDOPA/LEVODOPA 25/100 MG TABLET 2 TABLET PO ×2 (15:05→23:48)
--- NOTE | 2021-05-22 15:07 | PC.NURSE ---
Patient took a.m. meds later due to needing to eat her breakfast first - and requested 1200 meds be given at 1430 today and 1700 meds to be given at 1930 today.
[2021-05-22] MEDS: metroNIDAZOLE 250 MG TABLET 500 MG PO ×2 (15:21→23:08)
[2021-05-22 16:00] VITALS: BP 134/82; PULSE 87; RESP 22; TEMP 36.4; O2SAT 96
[2021-05-22 17:38] LABS: Iron 28 ug/dL (37-170)
[2021-05-22 17:49] LABS: Percent Iron Saturation 13 % (20-50)
[2021-05-22 20:00] VITALS: BP 148/73; PULSE 88; RESP 12; TEMP 36.4; O2SAT 95
[2021-05-22] MEDS: ONDANSETRON INJ 4 MG/2 ML VIAL IV PUSH (22:48)
[2021-05-22] MEDS: MELATONIN 3 MG TABLET PO (22:48)
[2021-05-22] MEDS: DOXEPIN HCL 10 MG CAPSULE PO (22:48)
[2021-05-23] VITALS: BP 131/62; PULSE 87; RESP 14; TEMP 36.4; O2SAT 97
--- NOTE | 2021-05-23 00:41 | PC.NURSE ---
we were unable to scan medication Carbidopa-Levodopa 12.5-50mg, so i verified with pharmacy. Pharmacy said they were unable to fix the problem, and said to administer medication without scanning. Verified with RN Mindy Gordillo.
[2021-05-23 04:00] VITALS: BP 150/71; PULSE 84; RESP 18; TEMP 36.4; O2SAT 92
[2021-05-23] MEDS: metroNIDAZOLE 250 MG TABLET 500 MG PO (05:12)
[2021-05-23] MEDS: ONDANSETRON INJ 4 MG/2 ML VIAL IV PUSH (05:19)
[2021-05-23 08:00] VITALS: BP 156/69; PULSE 90; RESP 16; TEMP 36.1; O2SAT 97
[2021-05-23] MEDS: CARBIDOPA/LEVODOPA 25/100 MG TABLET 3 TABLET PO (08:40)
[2021-05-23] MEDS: VENLAFAXINE HCL 75 MG TABLET PO (08:40)
[2021-05-23] MEDS: ENTACAPONE 200 MG TABLET PO (08:40)
[2021-05-23] MEDS: CHOLECALCIFEROL 1,000 UNITS TABLET 1000 UNITS PO (08:40)
[2021-05-23] MEDS: MULTIVITAMINS THERAPEUTIC TAB (*BKC) 1 TABLET PO (08:41)
--- NOTE | 2021-05-23 09:31 | PM.IMPN ---
Progress Note: A&P Additional Plan START OF DOCTOR JERMAN?S PROGRESS NOTE Subjective: At the present time the patient complains of nausea. Aside from this she endorses no complaints. Nursing staff has notified me that she has been noncompliant with medication. Patient denies fever, rigors, vomiting, cough, wheeze, abdominal pain, chest pain, dyspnea, or any other concerns or complaints. I have explained to the patient her current medical condition and plan of care and answered all questions Objective: General: -Alert -No acute distress -No dyspnea -No tachypnea Heart: -Regular rate -Regular rhythm -No murmurs -No gallops -No rubs Lungs: -No wheeze -No rhonchi -No rales Abdomen: -Normal bowel sounds in all four quadrants -No rebound -No guarding -No tenderness Extremities: -2/4 pulse in all four extremities -No clubbing -No cyanosis -No edema Additional Details / Additional Findings / Exceptions / Miscellaneous: Pertinent Laboratory Results / Pertinent Radiology Results / Pertinent Diagnostic Results / Pertinent Vital Signs: Blood pressure 145/65, pulse 93, respirations 22 Assessment / Plan: Diverticulitis. I appreciate surgery evaluate the patient. Flagyl 500 mg p.o. q.8 hours plus Zosyn 3.375 g IV q.6 hours. Upon discharge, patient will need follow-up with Gastroenterology had will perform repeat CT of the abdomen pelvis 2 weeks post discharge with IV contrast Sigmoid stricture. Outpatient follow-up with Gastroenterology Hypertension. Metoprolol 50 mg p.o. b.i.d. Muscle spasm Parkinson's disease. Carbidopa/levodopa p.o.: Per home dose/frequency plus Comtan 200 mg p.o. q.i.d. Depression. Effexor 75 mg p.o. b.i.d. History of breast cancer. Outpatient follow-up with Hematology/Oncology if she still being monitored for his medical condition History of hepatitis, not otherwise specified Mitral valve prolapse Osteopenia Iron deficiency anemia. Monitor hemoglobin level intermittently. Ferrous sulfate 325 mg p.o. b.i.d. plus vitamin-C 500 mg p.o. daily Medical noncompliance. Patient counseled regarding medical compliance DVT prophylaxis. Bilateral SCDs Disposition: Patient evaluated by Physical therapy and Occupational therapy and deemed to be safe to be independent. Patient will be discharged on the day of May 23, 2021 END OF DOCTOR JERMAN?S PROGRESS NOTE Subjective Date/time seen: 05/23/21 09:32 Objective Data Vital Signs Vital Signs: Vital Signs - 24 hr 05/22/21 12:00 05/22/21 16:00 05/22/21 20:00 Temperature 97.8 F 97.6 F 97.5 F L Pulse Rate 93 87 88 Respiratory Rate 22 H 22 H 12 Blood Pressure 145/65 H 134/82 148/73 H Pulse Oximetry 96 96 95 05/23/21 00:00 05/23/21 04:00 05/23/21 08:00 Temperature 97.6 F 97.6 F 97.0 F L Pulse Rate 87 84 90 Respiratory Rate 14 18 16 Blood Pressure 131/62 150/71 H 156/69 H Pulse Oximetry 97 92 97 Intake/Output Intake/Output: Intake & Output 05/20/21 05/21/21 05/22/21 05/23/21 23:59 23:59 23:59 23:59 Intake Total 3790 3575 2150 290 Output Total 200 200 Balance 3590 3575 1950 290 Meds/Results Medications: Active Medications Generic Name Dose Route Start Last Admin Trade Name Freq PRN Reason Stop Dose Admin Baclofen 10 mg 05/20/21 01:10 05/21/21 20:51 Baclofen 10 Mg Tablet PO 10 mg BID PRN Administration muscle spasticity Carbidopa/Levodopa 3 tablet 05/20/21 08:00 05/23/21 08:40 Carbidopa/Levodopa 25/100 Mg Tablet PO 3 tablet 0800,1700 AMY Administration Carbidopa/Levodopa 2 tablet 05/20/21 01:35 05/22/21 23:48 Carbidopa/Levodopa 25/100 Mg Tablet PO 2 tablet 1200,2200 AMY Administration Carbidopa/Levodopa 1 tablet 05/20/21 01:55 05/22/21 23:46 Carbidopa/Levodopa 12.5/50 Mg Tablet PO 1 tablet 1200,2200 AMY Administration Doxepin HCl 10 mg 05/20/21 01:10 05/22/21 22:48 Doxepin Hcl 10 Mg Capsule PO 10 mg HS PRN
--- NOTE | 2021-05-23 09:48 | PM.DS ---
DS: Admitting Diagnosis Discharge Date 9:51 a.m. on May 23, 2020 Admitting Diagnosis Diverticulitis DS: Summary Hospital Course Hospital Course: See discharge summary below Time Spent with Patient Time attestation: Total time spent providing and/or coordinating discharge services: START OF DOCTOR TONY?S DISCHARGE SUMMARY Date of Admission: May 20, 2021 Date of Discharge: 9:49 a.m. on May 23, 2021 Primary Diagnosis: Diverticulitis Secondary Diagnosis: Sigmoid stricture Hypertension Muscle spasm Parkinson's disease Depression History of breast cancer History of hepatitis, not otherwise specified Mitral valve prolapse Osteopenia Iron deficiency anemia Insomnia Seasonal allergies Medical noncompliance Consultations: General surgery Disposition: The patient is advised to follow up with Gastroenterology to 4 weeks post discharge for diagnosis of sigmoid stricture The patient is advised to follow up with surgery as directed The patient is advised follow-up with Hematology/Oncology as directed for her history of breast cancer if she is still being monitored for this medical condition Patient will need to schedule CT of the abdomen pelvis with IV contrast 2 weeks post discharge for diagnosis pericolic aspect abscess Discharge Medications: Zofran ODT 4 mg p.o. q.4 hours p.r.n. nausea/vomiting. Quantity 15. 0 refills Effexor 75 mg p.o. b.i.d. Claritin 10 mg p.o. daily Baclofen 10 mg p.o. b.i.d. p.r.n. muscle spasm Vitamin-D 2000 IU p.o. daily Carbidopa/levodopa: 25/100 mg: PO: Per home dose and frequency Doxepin 10 mg p.o. q.h.s. p.r.n. insomnia Comtan 200 mg p.o. q.i.d. Loteprednol 0.5% ophthalmic solution: 1 drop in both eyes daily Melatonin 3 mg p.o. q.h.s. p.r.n. insomnia Multivitamin p.o. daily Vitamin-C 500 mg p.o. daily Ferrous sulfate 325 mg p.o. b.i.d. Metoprolol 25 mg p.o. b.i.d. Flagyl 500 mg p.o. q.8 hours. Quantity 30. 0 refills Ciprofloxacin 500 mg p.o. b.i.d.. Quantity 20. 0 refills END OF DOCTOR TONY?S DISCHARGE SUMMARY DS: Data Data Completed and Pending Labs on day of discharge: Labs from last 24 hours 05/22/21 16:41 Iron 28 L TIBC 211 L % Saturation 13 L Ferritin 258.00 Discharge Plan Discharge Consulting providers: Marcial Edwards Discharging Clinician: Tony Patient Disposition: Other Activity: as tolerated Diet: low sodium Discharge Instructions: The patient is advised follow-up with Gastroenterology to 4 weeks post discharge The patient is advised follow-up with surgery as directed The patient requires CT of the abdomen pelvis with IV contrast 2 weeks post discharge for question of pericolic abscess The patient is advised follow-up with Hematology-Oncology as directed for history of breast cancer if she is still being monitored for this medical condition Patient Instructions: Antibiotic Form Stand Alone Forms: General Discharge Information Discharge Medications: New metronidazole 250 mg Tablet 500 mg PO Q8HR Qty: 30 RF: 0 ferrous sulfate 325 mg (65 mg iron) Tablet 324 mg PO BIDWM Qty: 60 RF: 0 ciprofloxacin HCl 500 mg tablet 500 mg PO Q12H Qty: 20 RF: 0 metoprolol tartrate 25 mg tablet 25 mg PO Q12H Qty: 60 RF: 0 ondansetron 4 mg tablet,disintegrating 4 mg PO .q4hprn PRN (Reason: nausea and vomiting) Qty: 15 RF: 0 ascorbic acid (vitamin C) [Vitamin C] 500 mg Tablet 500 mg PO DAILY Qty: 30 RF: 0 Continued melatonin 5 mg capsule 3 mg PO .qhs PRN (Reason: Sleep) RF: 0 multivitamin [Daily Multi-Vitamin] Tablet 1 tablet PO DAILY RF: 0 cholecalciferol (vitamin D3) [Vitamin D3] 1,000 unit capsule 2,000 unit PO DAILY RF: 0 venlafaxine 75 mg tablet 75 mg PO BID RF: 0 baclofen 10 mg tablet 10 mg PO BID PRN (Reason: muscle spasticity) Qty: 20 RF: 0
--- NOTE | 2021-05-23 11:59 | PM.PNGS ---
Progress Note: A&P Assessment and Plan (1) Diverticulitis large intestine: Qualifiers: Diverticulitis bleeding: without bleeding Diverticulitis complication: with abscess Qualified Code(s): K57.20 - Diverticulitis of large intestine with perforation and abscess without bleeding Code(s): K57.32 - Diverticulitis of large intestine without perforation or abscess without bleeding Status: Acute Assessment and Plan: Continuing to improve. Okay to discharge today. Follow-up arrangements made to see Dr. Edwards in office and get follow-up CT. Continue low-fiber diet and oral antibiotics. (2) Parkinson disease: Code(s): G20 - Parkinson's disease Status: Acute Subjective Subjective Date/Time Seen: 05/23/21 11:59 Interval history: New pain. He still having some occasional nausea. Bowels moving. Exam GI: Inspection: non-distended GI Palp: Yes Soft to palpation, No Tenderness to palpation present (GI), No Guarding due to palpation present (GI) and No Rebound tenderness present Auscultation: normal bowel sounds Objective Data Vital Signs Vital Signs: Vital Signs - 24 hr 05/22/21 12:00 05/22/21 16:00 05/22/21 20:00 Temperature 36.6 C 36.4 C 36.4 C L Pulse Rate 93 87 88 Respiratory Rate 22 H 22 H 12 Blood Pressure 145/65 H 134/82 148/73 H Pulse Oximetry 96 96 95 05/23/21 00:00 05/23/21 04:00 05/23/21 08:00 Temperature 36.4 C 36.4 C 36.1 C L Pulse Rate 87 84 90 Respiratory Rate 14 18 16 Blood Pressure 131/62 150/71 H 156/69 H Pulse Oximetry 97 92 97 Intake/Output Intake/Output: Intake & Output 05/20/21 05/21/21 05/22/21 05/23/21 23:59 23:59 23:59 23:59 Intake Total 3790 3575 2150 290 Output Total 200 200 Balance 3590 3575 1950 290 Meds/Results Medications: Active Medications Generic Name Dose Route Start Last Admin Trade Name Freq PRN Reason Stop Dose Admin Ascorbic Acid 500 mg 05/24/21 09:00 Ascorbic Acid 500 Mg Tablet PO DAILY AMY Baclofen 10 mg 05/20/21 01:10 05/21/21 20:51 Baclofen 10 Mg Tablet PO 10 mg BID PRN Administration muscle spasticity Carbidopa/Levodopa 3 tablet 05/20/21 08:00 05/23/21 08:40 Carbidopa/Levodopa 25/100 Mg Tablet PO 3 tablet 0800,1700 AMY Administration Carbidopa/Levodopa 2 tablet 05/20/21 01:35 05/22/21 23:48 Carbidopa/Levodopa 25/100 Mg Tablet PO 2 tablet 1200,2200 AMY Administration Carbidopa/Levodopa 1 tablet 05/20/21 01:55 05/22/21 23:46 Carbidopa/Levodopa 12.5/50 Mg Tablet PO 1 tablet 1200,2200 AMY Administration Doxepin HCl 10 mg 05/20/21 01:10 05/22/21 22:48 Doxepin Hcl 10 Mg Capsule PO 10 mg HS PRN Administration insomnia Entacapone 200 mg 05/20/21 01:30 05/23/21 08:40 Entacapone 200 Mg Tablet PO 200 mg QID AMY Administration Ferrous Sulfate 324 mg 05/23/21 17:00 Ferrous Sulfate 324 Mg Tablet PO BIDWM [facility] Piperacillin/Tazobactam/Dextrose 3.375 gm in 50 mls @ 100 mls/hr 05/20/21 00:00 05/23/21 05:42 Zosyn 3.375 Gm/D5w 50ml Pm IVPB Infused Q6H [facility] Infusion Loteprednol Etabonate 1 drop 05/21/21 13:00 05/22/21 13:07 Loteprednol Etabonate 0.5% Oph 5 Ml Bottle EACH EYE 1 drop Q24H [facility] Administration Melatonin 3 mg 05/20/21 01:10 05/22/21 22:48 Melatonin 3 Mg Tablet PO 3 mg HS PRN Administration Sleep Metoprolol Tartrate 50 mg 05/23/21 09:00 05/23/21 11:02 Metoprolol Tartrate 50 Mg Tab PO Not Given Q12HR [facility] Metronidazole 500 mg 05/22/21 14:00 05/23/21 05:12 Metronidazole 250 Mg Tablet PO 500 mg Q8HR AMY Administration Multivitamins Therapeutic 1 tablet 05/20/21 09:00 05/23/21 08:41 Multivitamins Therapeutic Tab (*Bkc) PO 1 tablet DAILY [facility] Administration Ondansetron HCl 4 mg 05/22/21 22:04 05/23/21 05:19 Ondansetron Inj 4 Mg/2 Ml Vial IV PUSH 4 mg Q6H PRN Administration Nausea And Vomiting Polyethylene Glycol 17 gm 05/22/
[2021-05-23 12:00] VITALS: BP 149/69; PULSE 92; RESP 18; TEMP 36.7; O2SAT 95
== END 2021-05-23 13:35 | DRG 392 ==
LOC: ANHED 19:37 → ANH2MED 05-20 11:01
PROVIDERS: Emergency Medicine; Nurse Practitioner Family; Surgery; Admitting Provider Internal Medicine; Emergency Provider Emergency Medicine; PCP Internal Medicine; Visit Provider Internal Medicine
DX: K57.20 Diverticulitis of large intestine with perforation and abscess without bleeding (principal); G20 Parkinson's disease; M85.80 Other specified disorders of bone density and structure, unspecified site; F32.A Depression, unspecified; I34.1 Nonrheumatic mitral (valve) prolapse; N28.89 Other specified disorders of kidney and ureter; K64.4 Residual hemorrhoidal skin tags; S00.83XA Contusion of other part of head, initial encounter; W18.39XA Other fall on same level, initial encounter; Z90.711 Acquired absence of uterus with remaining cervical stump; Z85.3 Personal history of malignant neoplasm of breast; Z91.14 Patient's other noncompliance with medication regimen
CPT/HCPCS: 36415; 70450; 74177; 74270; 80048; 80053; 82728; 83540; 83550; 83690; 83735; 85025; 96365; 97162; 97165; 99285; A9270; J0131; J2405; J2543; J7030; J7120; Q9967

== ENCOUNTER 2021-06-04 14:06 | Outpatient (CLI) | payer MEDICARE, MEDICAID, SELFPAY ==
--- NOTE | ~2021-06-04 | CT_ITS ---
EXAMINATION: CT abdomen pelvis w con DATE: 06/04/2021 15:01 INDICATION: Diverticulitis of large intestine TECHNIQUE: Computed tomography (CT) of the abdomen and pelvis was performed with 100 cc Omnipaque 350 intravenous contrast. Automated exposure control and iterative reconstruction technique were employe d. Exam dose: 549.80 mGy-cm total exam DLP. COMPARISON: 05/19/2021 CT abdomen pelvis 05/21/2021 radiopaque enema FINDINGS: There is focal posterior left lower lobe atelectasis and bibasilar discoid atelectasis or s carring. Trace pericardial fluid. Small pleural effusions, left greater than right. Diffuse hepatic steatosis. No hepatic space-occupying mass lesion is detected. The gallbladder is pre sent. No gallbladder wall thickening or pericholecystic fluid or fat stranding. No bile duct dilatati on is evident. There is mild nonspecific pancreatic duct prominence. No pancreatic mass lesion is joyce dent. Prominent duodenal diverticulum. Normal morphology of the adrenal glands. Occasional bilateral renal cysts. No urinary tract calculus or hydroureteronephrosis. The urinary bladder is unremarkable. Normal caliber of the abdominal aorta. No intraperitoneal or retroperitoneal or pelvic mass lesion or adenopathy or ascites. There are innumerable diverticula of the sigmoid and descending colon. There are some colonic fluid l evels, particularly in the transverse and ascending colon. There is diminished soft tissue thickening of the sigmoid colon and no evidence of drainable abscess. No pneumatosis or intraperitoneal free air is noted. Diffuse idiopathic skeletal hyperostosis of the lower thoracic spine. No suspicious osteolytic or ost eoblastic lesions are noted. IMPRESSION: Improvement of sigmoid diverticulitis since 05/19/2021, without evidence of drainable abs cess Reviewed, dictated and finalized at [facility]. Reviewed, dictated and finalized at [facility]. IMPRESSION: Improvement of sigmoid diverticulitis since 05/19/2021, without joyce dence of drainable abscess
== END 2021-06-04 14:07 | disposition home or self-care (01) ==
LOC: ANHIMG 14:09
PROVIDERS: PCP Internal Medicine; Visit Provider Surgery
DX: K57.20 Diverticulitis of large intestine with perforation and abscess without bleeding (principal)
CPT/HCPCS: 74177; Q9967

== ENCOUNTER 2021-06-24 02:14 | Day surgery (SDC) | payer MEDICARE, MEDICAID, SELFPAY ==
[2021-06-17 13:34] VITALS: BMI 22.5
--- NOTE | 2021-06-23 13:33 | PM.HPGS ---
History of Present Illness History of Present Illness Consent: Risks, benefits, and alternatives have been discussed and questions answered. Patient agrees to proceed with procedure. Chief complaint: diverticulitis Narrative: Joselyn Sauceda is a 76 year old female who was hospitalized with acute diverticulitis several weeks ago. She had what appeared to be a small abscess that was not in a location that could be drained percutaneously. A follow-up CT scan shows improvement as of June 04. She had a CT colonography a couple of years ago that was normal except for diverticulosis. Attempts to perform a complete colonoscopy were unsuccessful 8 years ago due to marked fixation and tortuosity of the sigmoid colon Review of Systems Review of Systems: All systems reviewed & are unremarkable except as noted in HPI and below PMFSH Past Medical History Medical History Breast cancer 27 years ago Chicken pox Hepatitis, unspecified Reportedly had Hepatitis C as a child. Measles Mitral valve prolapse Mumps Osteopenia Parkinson disease Surgical History Surgical History History of cosmetic surgery right breast augmentation following her lumpectomy History of eye surgery History of hysterectomy Partial vaginal hysterectomy History of lumpectomy of right breast lumpectomy and radiation for breast cancer History of tubal ligation Hx of total cystectomy Open cystectomy from fallopian tube Family History Family History Other Unknown family medical history Social History Social History Smoking status: Never smoker Alcohol intake: never Substance use type: does not use Living arrangements: alone Spiritual care concerns: No Meds Home Medications and Allergies Home Medications Medication Instructions Recorded Confirmed Type cholecalciferol (vitamin D3) 25 2,000 unit PO DAILY 07/25/19 06/17/21 History mcg (1,000 unit) capsule melatonin 5 mg capsule 3 mg PO .qhs PRN cap 07/25/19 06/17/21 History multivitamin 1 tablet PO DAILY 07/25/19 06/17/21 History venlafaxine 75 mg tablet 75 mg PO BID 05/06/20 06/17/21 History doxepin 10 mg capsule 10 mg PO .HS PRN #30 cap 09/25/20 06/17/21 Rx baclofen 10 mg tablet 10 mg PO BID PRN #20 tablet 02/12/21 06/17/21 Rx carbidopa 25 mg-levodopa 100 mg 3 tablet PO ONCE tablet 05/19/21 06/17/21 History tablet entacapone 200 mg tablet 200 mg PO QID tablet 05/19/21 06/17/21 History loteprednol etabonate 1 drp EACH EYE DAILY 05/19/21 06/17/21 History loratadine 10 mg PO DAILY 05/20/21 06/17/21 History vit C-vit X-[id number] 1 cap PO DAILY 05/20/21 06/17/21 History ascorbic acid (vitamin C) [Vitamin 500 mg PO DAILY #30 tablet 05/23/21 06/17/21 Rx C] ferrous sulfate 324 mg PO BIDWM #60 tablet 05/23/21 06/17/21 Rx docusate sodium 50 mg PO DAILY 06/17/21 06/17/21 History Allergies Allergy/AdvReac Type Severity Reaction Status Date / Time oxycodone Allergy Mild Rash Verified 06/24/21 10:32 povidone-iodine Allergy Unknown SEVERE RASH Verified 06/24/21 10:32 soap Allergy Unknown SEVERE RASH Verified 06/24/21 10:32 Sulfa (Sulfonamide Allergy Unknown RASH Verified 06/24/21 10:32 Antibiotics) Exam Resp: Auscultation: clear to auscultation bilaterally Cardio: Rate: regular rate Rhythm: regular rhythm GI: GI Palp: Yes Soft to palpation and No Tenderness to palpation present (GI) Assessment and Plan Assessment and plan (1) Diverticulitis: Code(s): K57.92 - Diverticulitis of intestine, part unspecified, without perforation or abscess without bleeding Status: Acute Assessment and Plan: Colonoscopy with possible biopsy or polypectomy or cautery or injection of substances.
[2021-06-24 10:35] VITALS: BMI 22.4
[2021-06-24 10:54] VITALS: BP 147/65; PULSE 69; RESP 18; TEMP 36.3; O2SAT 97
[2021-06-24] MEDS: LACTATED RINGERS 1,000 ML 150 ML IV CONT (10:56)
[2021-06-24 11:50] VITALS: BP 108/59; PULSE 58; RESP 19; O2SAT 96
[2021-06-24 12:00] VITALS: BP 125/61; PULSE 57; RESP 20; O2SAT 99
[2021-06-24 12:10] VITALS: BP 120/89; PULSE 60; RESP 19; O2SAT 97
== END 2021-06-24 12:24 | disposition home or self-care (01) ==
PROVIDERS: PCP Internal Medicine; Visit Provider Internal Medicine Gastroenterology
PROC: 0DJD8ZZ Inspection of Lower Intestinal Tract, Via Natural or Artificial Opening Endoscopic (ICD-10-PCS; CPT 45378; principal; 2021-06-24 12:30)
DX: K57.30 Diverticulosis of large intestine without perforation or abscess without bleeding (principal); I34.1 Nonrheumatic mitral (valve) prolapse; M19.90 Unspecified osteoarthritis, unspecified site; G20 Parkinson's disease
CPT/HCPCS: 45378; J2001; J2704; J7120

== ENCOUNTER 2021-07-28 14:46 | Outpatient (CLI) | payer MEDICARE, MEDICAID, SELFPAY ==
--- NOTE | ~2021-07-28 | MM_ITS ---
EXAMINATION: MM screening [facility] BI w roberto HISTORY: Screening TECHNIQUE: Craniocaudal and mediolateral oblique 3-D tomosynthesis images were obtained and synthetic 2-D images were generated. CAD analysis was submitted and interpreted. COMPARISON: Comparison to multiple prior studies sequentially, with oldest reviewed study dated 05/23. BREAST PARENCHYMAL COMPOSITION: Breast composed of scattered areas of fibroglandular density. FINDINGS: There are changes of prior breast reduction surgery. There is mild diffuse increased asymme tric density of the right breast with innumerable benign-appearing calcifications. These findings lik tod relate to prior surgery and radiation therapy. No suspicious masses, clusters of calcifications o r architectural distortion are identified in either breast to suggest malignancy. IMPRESSION: 1. No mammographic evidence of malignancy. 2. Recommend routine screening mammography in one year. BI-RADS Category 2: Benign finding(s). Reviewed, dictated and finalized at location [facility]. ATTENDANT
== END 2021-07-28 14:47 | disposition home or self-care (01) ==
LOC: ANHIMG 14:49
PROVIDERS: PCP Internal Medicine; Visit Provider Clinical Nurse Specialist
DX: Z12.31 Encounter for screening mammogram for malignant neoplasm of breast (principal)
CPT/HCPCS: 77063; 77067

== ENCOUNTER 2021-10-06 12:55 | Outpatient (RCR) | payer MEDICARE, MEDICAID, SELFPAY ==
--- NOTE | 2021-10-06 14:31 | PTOPEVAL ---
PHYSICAL THERAPY EVALUATION AND PLAN OF CARE Thank you for referring Joselyn Sauceda to [facility].? The patient is scheduled to be seen for therapy? _1x/week for 4 weeks. Please review, sign, date and return this plan of care LUIS. I agree with and certify that the following plan of care is medically necessary. Referring Physician Date Attending Provider: Jeff Yang Evaluation Outpatient Past Medical History Neurological History Hx Parkinson's Disease Yes Hx Appendectomy Yes Hx Diverticulitis Yes Hx Diverticulosis Yes Genitourinary History Hx Urinary Tract Infection Yes Musculoskeletal History Hx Arthritis Yes HEENT History Hx Cataracts Yes Hx Eye Surgery Yes: LASIK EYE SURGERY, Bilateral Blepharoplasty Integumentary History Hx Skin Disorders No Significant History Reproductive History Hx Other Reproductive Disorders Yes: Right Breast Lumpectomy Diagnosis Parkinson's Disease Subjective Information Does have parkinson's disease. Query Text:As Reported By Patient/ Feels like her balance has Family decreased. She has fallen one time, in May when she stood up from a chair to kept moving forward and hit a wall in front of her. She was able to stand up on her own. She has been diagnosed with PD for 7-8 years. Takes Carbadopa- levadopa States that she has been experiencing some right hip/ leg pain for a few months, especially while climbing the stairs. Happens with bending over, standing/sitting observations: mild tremor in right hand and right LE, mild chorea movemnets of trunk in standing; left shoulder rests in an elevated position Self Report Pain Assessment Right Hip(s) Reported Pain Level 6 Greatest Pain Intensity 6 Pain Score Pain Score 6: Self Report Interventions Used Interventions Used By Clinicians Exercise Lower Extremity Muscle Strength Testing Hip Strength Left Hip Flexion Strength 5 Normal Hip Extension Strength 3- Fair - Hip Abduction Strength 4- Good - Hip Medial Rotation Strength 4 Good Hip Lateral Rotation Strength 4 Good Right Hip Flexion Strength 4+ Good +
--- NOTE | 2021-10-13 07:22 | PCPTNOTE ---
Patient called & cancelled scheduled appointment this date due to having another medical condition.
--- NOTE | 2021-10-27 11:51 | PCPTNOTE ---
Patient did not show up for scheduled appointment this date; called and left voicemail for reminder on re-eval appointment.
--- NOTE | 2021-11-03 10:35 | PCPTNOTE ---
Patient called & cancelled scheduled appointment this date. She states that her initial symptoms are generally resolved at this time but she is now experiencing symptoms in the front of the same leg. She has gotten an X-RAY and is getting an MRI this coming and would like to have the MRI before proceeding with further therapy. Joselyn is going to call after the MRI to discuss further options.
--- NOTE | 2021-12-02 12:53 | PCPTNOTE ---
PHYSICAL THERAPY DISCHARGE NOTE Attending Provider: Jeff Yang Patient:Joselyn Sauceda Date of :1945 Patient has not returned for any further treatments since 10/06/2021, therefore she will be discharged at this time. Patient?s initial visit was on 10/06/2021. Thank you for referring this patient to [facility]. Please review, sign, date and return this discharge summary LUIS. I have been updated about the patient's current status and I agree with discharge from the above service at this time. Referring Physician Date
== END 2021-12-21 14:42 | disposition home or self-care (01) ==
LOC: ANHPT 12:55
PROVIDERS: PCP Internal Medicine
DX: G20 Parkinson's disease (principal); G25.0 Essential tremor
CPT/HCPCS: 97110; 97162

== ENCOUNTER 2021-10-27 13:03 | Outpatient (CLI) | payer MEDICARE, MEDICAID, SELFPAY ==
--- NOTE | ~2021-10-27 | XR_ITS ---
EXAMINATION: XR hip RT min 2V DATE: 10/27/2021 13:24 INDICATION: Right hip pain. TECHNIQUE: 2 views of right hip were obtained. COMPARISON: Pelvis radiograph 10/13/2008 FINDINGS: Bone alignment is normal. No fracture. There is mild lumbar spondylosis. There is mild righ t hip osteoarthritis. IMPRESSION: 1. Mild right hip osteoarthritis. Reviewed, dictated and finalized at location A. [employer]
== END 2021-10-27 13:04 | disposition home or self-care (01) ==
LOC: ANHIMG 13:06
PROVIDERS: PCP Internal Medicine; Visit Provider Clinical Nurse Specialist
DX: M16.11 Unilateral primary osteoarthritis, right hip (principal)
CPT/HCPCS: 73502

== ENCOUNTER 2021-11-05 09:42 | Outpatient (CLI) | payer MEDICARE, MEDICAID, SELFPAY ==
--- NOTE | ~2021-11-05 | MR_ITS ---
EXAMINATION: MR hip RT wo con DATE: 11/05/2021 10:35 INDICATION: Unspecified right hip pain TECHNIQUE: Magnetic resonance imaging (MRI) of the right hip was performed without intravenous contr ast. Sequences included full-field axial PD-weighted FS FSE and T1-weighted FSE, coronal of the pelvi s with PD-weighted FS FSE, T2-weighted FSE and T1-weighted FSE, small field of view of the right hip with axial PD-weighted FS FSE, sagittal PD-weighted FS FSE, coronal PD-weighted FS FSE and coronal T 2 weighted FSE. Additional radial T1-weighted FGR oriented orthogonal to the acetabular rim were obta ined for evaluation of the labrum. COMPARISON: None FINDINGS: Bones/labrum/cartilage: Alignment is normal. No fracture, avascular necrosis or pathologic marrow replacing process. Tear at the anterior to the superolateral right acetabular labrum. Mild osteoarthritis at the right hip with mild partial-thickness cartilage loss at the remaining superolateral aspect of the acetabulum and at the apical to superolateral right femoral head. Moderate lower lumbar spondylosis. Fluid: Symmetric physiologic amount of fluid within both hip joints. Small amount of fluid at the anterior a nd lateral left greater trochanter consistent with left gluteus minimus gluteus medius and minimus bu rsitis. Additional fluid consistent with bursitis at the right ischial tuberosity. Soft tissues: Moderate tendinopathy of the proximal abductor susie tendon with partial tear along its inferior pub ic ramus origin. There is also partial tear at the right ischial tuberosity origin of the semimembran osus tendon which appears significantly attenuated relative to the left semimembranosus tendon. Mild tendinopathy without discrete tears at the bilateral increased minimus tendons. There is partial thic kness tear of the anterior left gluteus medius tendon with proximal migration of the myotendinous paulo ction which now lies 3 cm above level of the left greater trochanter. The bilateral iliopsoas tendons are normal. Extensive sigmoid diverticulosis without focal surrounding inflammatory stranding to sug gest diverticulitis. The uterus is not identified and has likely been surgically resected. No pat hologically enlarged pelvic/inguinal lymphadenopathy. IMPRESSION: 1. Right ischial bursitis with tendinopathy and partial-thickness tear of the proximal right abductor susie and partial tear of the proximal right semimembranosus tendon. 2. Mild right hip osteoarthritis with tear of the anterior to superolateral right acetabular labrum. 3. Mild left gluteus medius medius and minimus tendinopathy with partial thickness tear of the distal anterior left gluteus medius medius tendon. 4. Marked sigmoid diverticulosis. Reviewed, dictated and finalized at location A. IMPRESSION: 1. Right ischial bursitis with tendinopathy and partial-thickness tear of the p roximal right abductor susie and partial tear of the proximal right semimembra nosus tendon. 2. Mild right hip osteoarthritis with tear of the anterior to superolateral rig ht acetabular labrum. 3. Mild left gluteus medius medius and minimus tendinopathy with partial thickn ess tear of the distal anterior left gluteus medius medius tendon. 4. Marked sigmoid diverticulosis.
== END 2021-11-05 09:43 | disposition home or self-care (01) ==
LOC: ANHIMG 09:46
PROVIDERS: PCP Internal Medicine; Visit Provider Clinical Nurse Specialist
DX: K57.30 Diverticulosis of large intestine without perforation or abscess without bleeding (principal); M16.11 Unilateral primary osteoarthritis, right hip; M70.71 Other bursitis of hip, right hip
CPT/HCPCS: 73721

== ENCOUNTER 2022-02-16 12:30 | Outpatient (RCR) | payer MEDICARE, MEDICAID, SELFPAY ==
--- NOTE | 2022-01-05 13:28 | PTOPEVAL ---
PHYSICAL THERAPY INITIAL EVALUATION. Thank you for referring Joselyn Sauceda to [facility].? The patient is scheduled to be seen for therapy? 1x/week for 6 weeks. Please review, sign, date and return this plan of care LUIS. I agree with and certify that the following plan of care is medically necessary. Referring Physician Date Attending Provider: Dilshad Carter MD *PT Outpatient Evaluation Start: 01/05/22 Outpatient Past Medical History Neurological History Hx Parkinson's Disease Yes Evaluation Information Diagnosis R hip pain Onset ~3 months Subjective Information Pt states her hip pain started Query Text:As Reported By Patient/ because she was doing 2 Family flights of stairs too frequently. She was initially given a steroid that helped to manage the pain. Since then the hip pain has come back and now she has some knee pain on the same side. Per her MRI she has tendonitis and partial tears of her gluteus medius and minimus tendon on the L, partial tear of the anterior labrum on the R. Pt ambulated into the clinic today with a rollator, she states she has been using this for about a month. Pain Assessment Right Hip(s) Reported Pain Level 0 Pain Description Aching,Sharp Lowest Pain Intensity 0 Greatest Pain Intensity 9 Pain Aggravating Factors Stair Climbing,Walking,Weight Bearing/Standing Lower Extremity Range of Motion General Lower Extremity Range of Motion WFL/Left,WFL/Right Gross Lower Extremity Range of Motion max hip flexion pain free usha Comments L hip ext rot, IR: 60,30 R hip ext rot, IR: 30,10 R hip extension limited compared to L Lower Extremity Muscle Strength Testing Gross Lower Extremity Strength usha hip flexion 4+/5 usha knee extension 4+/5 usha knee flexion 3+/5 usha ankle df 4+/5 usha glute med 3+/5 L hip extension 3/5 R hip extension 2/5 Muscle Length Testing Left Hamstring Length -20 Right Hamstring Length -35 Palpation Assessment Palpation lateral hip joint proximal one
--- NOTE | 2022-01-14 08:04 | PCPTNOTE ---
Patient called to cancel stating she does not have transportation.
--- NOTE | 2022-02-02 16:08 | PCPTNOTE ---
Patient called & cancelled scheduled appointment this date due to sick.
--- NOTE | 2022-02-09 12:29 | PCPTNOTE ---
Patient reports she needs to cancel appointment because she does not have a ride.
--- NOTE | 2022-02-16 15:06 | PTOPEVAL ---
PHYSICAL THERAPY PROGRESS REPORT. Thank you for referring Joselyn Sauceda to [facility].? The patient is scheduled to be seen for therapy? 1x/week for 4 weeks. Please review, sign, date and return this plan of care LUIS. I agree with and certify that the following plan of care is medically necessary. Referring Physician Date Attending Provider: Dilshad Carter MD Evaluation Information Diagnosis R hip pain Onset ~3 months Subjective Information Pt states she tripped and fell Query Text:As Reported By Patient/ over her vacuum flue cleaner on Family Tuesday. She hit her chin and her L side is achy all over. She reports fair compliance with her HEP. Pain Assessment Right Hip(s) Reported Pain Level 1 Pain Description Aching,Sharp Lowest Pain Intensity 5 Lower Extremity Range of Motion General Lower Extremity Range of Motion WFL/Left,WFL/Right Gross Lower Extremity Range of Motion max hip flexion pain free usha Comments L hip ext rot, IR: 60,30 R hip ext rot, IR: 60,30 R hip extension limited compared to L Lower Extremity Muscle Strength Testing Gross Lower Extremity Strength usha hip flexion 4+/5 usha knee extension 4+/5 usha knee flexion 4/5 usha ankle df 4+/5 usha glute med 3+/5 L hip extension 3/5 R hip extension 2/5 - decreased passively Muscle Length Testing Left Hamstring Length -20 Right Hamstring Length -25 Posture Lumbar Spine Posture Increased Lordosis Pelvis Posture Anteriorly Tilted Palpation Assessment Palpation lateral hip joint proximal one third of femur Gait Assessment Other Gait Observations increased lateral pelvic sway 2 Minute Walk Total Distance Walked (feet) 490 2 Minute Walk Gait Speed Score (feet/ 4.08 2 Minute Walk Test Comments with rollator Stair Climbing Assessment Stair Climbing Assistive Devices Railings Stair Climbing Comments ascends and descend with a reciprocal pattern, decreased eccentric control during descent Safety Assessment Factors Affecting Safety Decreased Balance PT Clinical Summary Joselyn presents to therapy today for her progress report following 4 visits of therapy to treat her R hip pain. Today
--- NOTE | 2022-03-02 14:23 | PCPTNOTE ---
Patient reports she fell recently and is very sore and needed to cancel this date.
--- NOTE | 2022-03-09 11:25 | PCPTNOTE ---
Patient canceled appointment due to MD wanting her to hold on therapy at this time.
--- NOTE | 2022-03-16 10:52 | PCPTNOTE ---
Attending Provider: Dilshad Carter MD Patient:Joselyn Sauceda Date of :1945 PHYSICAL THERAPY DISCHARGE SUMMARY. Patient called and cancelled all of her remaining appointments on 03/09/22. Followed up with patient today, she states her MD would like her to hold off on therapy at this time, therefore she will be discharged. She was told she will need a new doctor from her referring provider when they would like her to return to therapy. Patient has not returned for any further treatments since 02/16/2022, her initial visit was on 01/05/2022 09:30 and she had a total of 4 visits. The goals have been partially met. Thank you for referring this patient to [facility]. Please review, sign, date and return this discharge summary LUIS. I have been updated about the patient's current status and I agree with discharge from the above service at this time. Referring Physician Date
== END 2022-03-16 14:21 | disposition home or self-care (01) ==
LOC: ANHPT 12:30
PROVIDERS: PCP Internal Medicine; Visit Provider Orthopaedic Surgery
DX: M70.51 Other bursitis of knee, right knee (principal); M70.61 Trochanteric bursitis, right hip
CPT/HCPCS: 97110; 97112; 97116; 97140; 97161; 97530

== ENCOUNTER 2022-03-04 14:23 | Emergency (ER) | payer MEDICARE, MEDICAID, SELFPAY ==
--- NOTE | ~2022-03-04 | XR_ITS ---
XR hip RT min 3V w AP pelvis 03/04/2022 16:32 Indication: Status post fall. Right leg and hip pain Procedure: AP pelvis and 2 views right hip Comparison: 10/27/2021 Findings: There is mild osteoarthritis of the hips. No fracture or traumatic malalignment. No signifi cant soft tissue abnormality. No foreign bodies. Impression: 1: No acute fracture. Reviewed, dictated and finalized at location A. Impression: 1: No acute fracture.
--- NOTE | ~2022-03-04 | XR_ITS ---
XR knee RT min 4V DATE: 03/04/2022 15:14 INDICATION: Fall. Right knee pain. TECHNIQUE: 6 images are provided including AP and crosstable lateral projections COMPARISON: 01/31/2020 right knee FINDINGS: There is osteopenia. No fracture or dislocation or joint effusion. No periosteal reaction or bone destruction. No radiopaq ue intra-articular loose body or chondrocalcinosis. Knee joint spaces are relatively preserved. IMPRESSION: Osteopenia; otherwise negative Reviewed, dictated and finalized at location A.
[2022-03-04 14:04] VITALS: BP 125/75; PULSE 99; RESP 16; TEMP 36.3; O2SAT 99
--- NOTE | 2022-03-04 14:58 | ED.LOWEXIN ---
HPI - Extremity Injury (Lower) General Chief Complaint: Extremity Injury, Lower Stated Complaint: right leg pain Source: patient Mode of arrival: EMS Limitations: no limitations History of Present Illness HPI Narrative: Patient is a 76-year-old female who presents the ED via EMS from [facility], with report of a fall and right knee pain. Patient reports a history of persistent pain in her right hip/gluteal region. She had an MRI of her right hip performed in December which showed several muscle tendinopathies and partial tears. She has been seeing Dr. Carter for this. 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 She has had new pain in her R knee and worsening pain in her R hip/gluteal region since then. She has a f/u appt with Dr. Carter next Tuesday, but reports she had difficulty sleeping last night due to the pain which prompted her presentation to the ED today. Patient has been taking Tylenol and tramadol at home without relief. Denies any head injury or LOC from the fall, numbness, tingling, weakness. No bowel or bladder incontinence, or retention. She has been ambulatory since the fall. Related Data Home Medications Medication Instructions Recorded Confirmed cholecalciferol (vitamin D3) 25 2,000 unit PO DAILY 07/25/19 10/27/21 mcg (1,000 unit) capsule (Vitamin D3) melatonin 5 mg capsule 3 mg PO .qhs PRN Sleep 07/25/19 10/27/21 multivitamin (Daily Multi-Vitamin 1 tablet PO DAILY 07/25/19 10/27/21 tablet) venlafaxine 75 mg tablet 75 mg PO BID 05/06/20 10/27/21 carbidopa 25 mg-levodopa 100 mg 3 tablet PO ONCE 05/19/21 10/27/21 tablet (Sinemet) entacapone 200 mg tablet (Comtan) 200 mg PO QID 05/19/21 10/27/21 loratadine 10 mg tablet 10 mg PO DAILY 05/20/21 10/27/21 vit C-vit C-fzdgyi-hztapnkj capsule 1 cap PO DAILY 05/20/21 10/27/21 cyanocobalamin (vitamin B-12) 50 50 mcg PO DAILY 07/30/21 10/27/21 mcg tablet (Vitamin B-12) cyclosporine 0.05 % eye drops in a 1 drp EACH EYE Q12H 09/09/21 10/27/21 dropperette (Restasis) Allergies Allergy/AdvReac Type Severity Reaction Status Date / Time oxycodone Allergy Mild Rash Verified 09/09/21 14:02 povidone-iodine Allergy Unknown SEVERE RASH Verified 09/09/21 14:02 soap Allergy Unknown SEVERE RASH Verified 09/09/21 14:02 Sulfa (Sulfonamide Allergy Unknown RASH Verified 09/09/21 14:02 Antibiotics) Review of Systems Review of Systems: CONSTITUTIONAL: Denies fever, chills, or sweats. CARDIOVASCULAR: Denies chest pain. RESPIRATORY: Denies dyspnea. GI/: Denies incontinence, retention. MUSCULOSKELETAL: Reports pain in R hip/gluteal region, R knee pain. Denies R ankle pain. NEUROLOGIC: Denies HI, LOC, numbness, tingling, or weakness. All systems reviewed & are unremarkable except as noted in HPI and below PMFSH Past Medical History Medical History Breast cancer 27 years ago Chicken pox Diverticulosis of colon Hepatitis, unspecified Reportedly had Hepatitis C as a child. Measles Mitral valve prolapse Mumps Osteopenia Parkinson disease Surgical History Surgical History History of cosmetic surgery right breast augmentation following her lumpectomy History of eye surgery History of hysterectomy Partial vaginal hysterectomy History of lumpectomy of right breast lumpectomy and radiation for breast cancer History of tubal ligation Hx of total cystectomy Open cystectomy from fallopian tube Family History Family History Other Unknown family medical history Social History Social History Social History: caffeine-soda Smoking status: Never smoker Alcohol intake: never Substance use type: does not use Spiritual care concerns: No Exam Narrative: GENERAL
--- NOTE | 2022-03-04 16:20 | PC.NURSE ---
Pt taken to radiology
[2022-03-04] MEDS: KETOROLAC (*BKC) 60 MG/2 ML VIAL IM (16:41)
== END 2022-03-04 18:13 ==
PROVIDERS: Emergency Provider Emergency Medicine; PCP Internal Medicine
DX: S89.91XA Unspecified injury of right lower leg, initial encounter (principal); S76.011D Strain of muscle, fascia and tendon of right hip, subsequent encounter; G20 Parkinson's disease; I34.1 Nonrheumatic mitral (valve) prolapse; M85.80 Other specified disorders of bone density and structure, unspecified site; Z85.3 Personal history of malignant neoplasm of breast; Z86.19 Personal history of other infectious and parasitic diseases; Z90.711 Acquired absence of uterus with remaining cervical stump; W18.09XA Striking against other object with subsequent fall, initial encounter; X58.XXXD Exposure to other specified factors, subsequent encounter
CPT/HCPCS: 73502; 73564; 96372; 99284; J1885

== ENCOUNTER 2022-05-04 12:30 | Outpatient (CLI) | payer MEDICARE, MEDICAID, SELFPAY ==
--- NOTE | ~2022-05-04 | MR_ITS ---
EXAMINATION: MR knee RT wo con DATE: 05/04/2022 13:30 INDICATION: Right knee pain TECHNIQUE: Magnetic resonance imaging (MRI) of the right knee was performed without intravenous contr ast. Sequences included coronal PD-weighted FSE, coronal PD-weighted FS FSE, sagittal T2-weighted FS E, sagittal PD-weighted FS FSE and axial PD weighted fat saturated FSE. COMPARISON: Right knee radiographs dated 03/04/2022 FINDINGS: Medial compartment: Complex tear of the anterior horn and body of the medial meniscus with longitudinal horizontal tear e xtending to the superior to posterior surface at the anterior horn extending centrally to the free ed ge of the meniscal body. There is a very small meniscal flap which is displaced centrally from the no rmal contour of the inner free edge. This is seen is a very thin low signal intensity line measuring approximately 4 mm between the cartilage of the anterior medial tibial plateau and anterior weightbea ring medial femoral condyle on sagittal series 5 & 6, images 17 & 18 and on coronal series 3 & 4 on i mage 13. Partial-thickness chondral ulceration/fissuring involving less than 50% the cartilage thickn ess at the anterior weightbearing medial femoral condyle. Remaining cartilage in the medial compartme nt is normal. Lateral compartment: Lateral meniscus is normal. Articular cartilage is normal. Patellofemoral compartment: Distal small region of partial-thickness chondral ulceration and fissuring without degenerative subch ondral changes at the inferior aspect of the medial trochlea. Remaining cartilage in the patellofemor al compartment is normal. Ligaments and tendons: Anterior and posterior cruciate ligaments are normal. The medial collateral ligament and fibular kimber ateral ligament complex are normal. The extensor mechanism is normal. The visualized medial and later al hamstring tendons as well as the iliotibial band are normal. Fluid: Physiologic amount of fluid in the joint space. No loose osteochondral bodies identified. Osseous/other: Mild cystic change along the nonarticular posterior margin of the medial tibial plateau underlying th e footplate of the semimembranosus tendon. Normal marrow signal. No fracture or pathologic marrow rep lacing process. IMPRESSION: 1. Complex medial meniscal tear with very small displaced meniscal flap extending centrally from the free edge of the junction of the anterior horn and body. 2. Moderate grade chondromalacia along the anterior weightbearing medial femoral condyle and at the i nferior aspect of the medial trochlea. Reviewed, dictated and finalized at location A. IMPRESSION: 1. Complex medial meniscal tear with very small displaced meniscal flap extendi ng centrally from the free edge of the junction of the anterior horn and body. 2. Moderate grade chondromalacia along the anterior weightbearing medial femora l condyle and at the inferior aspect of the medial trochlea.
== END 2022-05-04 12:31 | disposition home or self-care (01) ==
LOC: ANHIMG 12:31
PROVIDERS: PCP Internal Medicine; Visit Provider Clinical Nurse Specialist
DX: S83.231A Complex tear of medial meniscus, current injury, right knee, initial encounter (principal); X58.XXXA Exposure to other specified factors, initial encounter
CPT/HCPCS: 73721

== ENCOUNTER 2022-07-01 12:30 | Outpatient (RCR) | payer MEDICARE, MEDICAID, SELFPAY ==
--- NOTE | 2022-06-07 12:32 | PTOPEVAL1 ---
Assessment and note entered by Josué Aguila, PT Evaluation Information Assessment Status Evaluation Diagnosis R hip osteoarthritis, R knee medial meniscal injury Subjective Information Patient reports she has had pain in the R LE for about a year now, and then 5 months ago she fell over the vacuum cord and since then her R knee pain has been exacerbated. Reported Pain Level Pain Score 2: Self Report Assessment PT Clinical Summary Joselyn is a 77 year old female coming into the clinic for R hip and knee pain. She has been dealing with the pain for about an year with the R knee pain exacerbated 5 months ago with a fall over a vacuum cord. The patient has tenderness in palpation over the R IT band and R piriformis. The patient has weakness in the R hip. Patient walks with a rollator as she reports that it helps alleviate her RLE pain. Patient would like to progress to a straight cane or no assistive device . Skilled therapy interventions for general strengthening of the hip and soft tissue mobilization or modalities to help with painful palpations. Patient also could benefit from education and gait training to see if she can progress to a straight cane from her rollator. Plan of Care Interventions Electrical Stimulation,Gait Training,Hot Pack/Cold Pack,Manual Therapy,Neuro Re-education,Patient/ Caregiver Education,Therapeutic Activities, Therapeutic Exercise,Ultrasound PT Services Indicated Yes Treatment Frequency and 2x/wk for 4 weeks Duration These treatments will address the objective and functional deficits as defined above. The patient will be advanced safely and appropriately in order for the patient to progress towards his/her prior level of function. Additional exercises will be introduced and as well as a comprehensive home exercise program upon discharge, if needed, ?to ensure carryover of functional gains achieved in the clinic. This treatment plan has been reviewed and agreement upon by the patient.
--- NOTE | 2022-06-22 15:09 | PCPTNOTE ---
Patient called & cancelled scheduled appointment this date due to no transportation.
--- NOTE | 2022-07-08 14:04 | PCPTNOTE ---
Patient called & cancelled scheduled appointment this date due to falling, and into much pain.
--- NOTE | 2022-07-13 10:50 | PCPTNOTE ---
Patient called & cancelled scheduled appointment this date due to patient had a fall.
== END 2022-08-26 13:29 | disposition home or self-care (01) ==
LOC: ANHPT 12:30
PROVIDERS: PCP Internal Medicine; Visit Provider Orthopaedic Surgery
DX: M16.11 Unilateral primary osteoarthritis, right hip (principal); S83.249D Other tear of medial meniscus, current injury, unspecified knee, subsequent encounter
CPT/HCPCS: 97014; 97110; 97116; 97161; 97530; G0283

== ENCOUNTER 2022-10-06 14:30 | Outpatient (RCR) | payer MEDICARE, MEDICAID, SELFPAY ==
--- NOTE | 2022-09-01 15:26 | PCPTNOTE ---
Patient did not show up for scheduled appointment this date.
--- NOTE | 2022-09-23 18:37 | PTOPEVAL1 ---
Assessment and note entered by Josué Aguila, PT Evaluation Information Assessment Status Evaluation Diagnosis Pain in BUDDY shoulders Subjective Information Patient reports that she has pain in her shoulders worse on the L side that she thinks is coming from her neck, because it radiates down to her elbow. She reports increased pain with ADL's that the elbow pain has recently just started. ( Suggested to get an OT evaluation if concerned about the elbow.) After discussing her issues she basically states I hurt all over I am just coming for what hurts the most right now. Clinical Summary Joselyn Sauceda is a 77 year old female coming into the clinic for L shoulder pain, which she thinks is actually neck and elbow pain. She has poor posture with forward head and rounded shoulders along with tightness in her upper traps and weakness in her L triceps. Physical therapy will work on range of motion, strengthening, improved posture, and stretching along with modalities and manual therapy as needed for pain control. These treatments will address the objective and functional deficits as defined above. The patient will be advanced safely and appropriately in order for the patient to progress towards his/her prior level of function. Additional exercises will be introduced and as well as a comprehensive home exercise program upon discharge, if needed, ?to ensure carryover of functional gains achieved in the clinic. This treatment plan has been reviewed and agreement upon by the patient.
--- NOTE | 2022-10-05 11:44 | PCPTNOTE ---
Patient called & cancelled scheduled appointment this date due to not feeling well, rescheduled for tomorrow.
--- NOTE | 2022-11-02 12:35 | PCPTNOTE ---
Patient called & cancelled scheduled appointment this date due to being sick with stomach issues.
--- NOTE | 2022-11-15 14:03 | PCPTNOTE ---
pt did not show for today's reevaluation, called her and she stated she forgot about the appt, still having shoulder pain. She has a dr appt this week, discussed that she will discuss PT with her dr and if to continue, please get a new script and call to schedule an appointment.
--- NOTE | 2022-11-22 09:32 | PCPTNOTE ---
Admitting Provider: Attending Provider: Zeinab Mota NP Patient:Joselyn Sauceda Date of :1945 Patient has not returned for any further treatments since 10/06/2022, therefore she will be discharged at this time. Patient?s initial visit was on 09/01/2022 15:00 and she had a total of ___3 visits with 4 no shows or cancelations The goals have been not met. Thank you for referring this patient to [facility]. Please review, sign, date and return this discharge summary LUIS. I have been updated about the patient's current status and I agree with discharge from the above service at this time. Referring Physician Date
== END 2022-11-22 11:07 | disposition home or self-care (01) ==
LOC: ANHPT 14:30
PROVIDERS: PCP Internal Medicine; Visit Provider Nurse Practitioner
DX: M25.511 Pain in right shoulder (principal); M25.512 Pain in left shoulder
CPT/HCPCS: 97110; 97140; 97161; 97530; 99199

== ENCOUNTER 2022-10-07 17:54 | Outpatient (CLI) | payer MEDICARE, MEDICAID, SELFPAY ==
--- NOTE | ~2022-10-07 | MM_ITS ---
EXAMINATION: MM screening jacqueline BI w roberto HISTORY: Screening mammogram TECHNIQUE: Craniocaudal and mediolateral oblique 3-D tomosynthesis images were obtained and synthetic 2-D images were generated. CAD analysis was submitted and interpreted. COMPARISON: 07/28/2021 bilateral screening mammogram 08/10/2014 bilateral screening mammogram BREAST PARENCHYMAL COMPOSITION: The breasts are heterogeneously dense, which may obscure small masses . FINDINGS: Status post right partial mastectomy for breast cancer. History of breast reduction surgery in 2018. History of benign left breast biopsy. Extensive benign-appearing calcifications are again noted throughout the right breast. There is no evidence of suspicious mass, calcification, or new architectural distortion to suggest m alignancy in either breast. There has been no suspicious interval change. IMPRESSION: 1. Status post right partial mastectomy for breast cancer. 2. Recommend routine screening mammography in one year. BI-RADS Category 2: Benign finding(s). Reviewed, dictated and finalized at location A. 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
== END 2022-10-07 17:55 | disposition home or self-care (01) ==
PROVIDERS: PCP Internal Medicine; Visit Provider Internal Medicine
DX: Z12.31 Encounter for screening mammogram for malignant neoplasm of breast (principal)
CPT/HCPCS: 77063; 77067

== ENCOUNTER 2022-11-15 17:32 | Outpatient (CLI) | payer MEDICARE, SELFPAY ==
[2022-11-15 18:26] LABS: Anion Gap 4 mmol/L (8-16); Blood Urea Nitrogen 23 mg/dL (7-17); Calcium 9.6 mg/dL (8.4-10.2); Carbon Dioxide 30 mmol/L (22-30); Chloride 101 mmol/L (98-107); Estimated Glomerular Filt Rate > 60; Glucose 125 mg/dL (65-110); Potassium 3.7 mmol/L (3.4-5.0); Sodium 135 mmol/L (137-145)
== END 2022-11-15 17:33 | disposition home or self-care (01) ==
PROVIDERS: PCP Internal Medicine; Visit Provider Clinical Nurse Specialist
DX: R94.4 Abnormal results of kidney function studies (principal); R63.4 Abnormal weight loss
CPT/HCPCS: 36415; 80048; 84443

== ENCOUNTER 2022-11-17 12:54 | Outpatient (CLI) | payer MEDICARE, SELFPAY ==
--- NOTE | ~2022-11-17 | DEXA_ITS ---
Bone Density Report Name: SUSANA PIERSON Age: 77 Sex: Female Ethnicity: White Date of : 1945 Indication: postmenopausal; screening for osteoporosis; inflammatory bowel disease; cancer; hysterectomy; Referring Provider: NAYE BARRY Study: Bone densitometry was performed. Exam Date: November 17, 2022 Accession number: [id number] Bone Density: Region BMD T-score Z-score Classification AP Spine(L1, L3, L4) 1.040 -0.1 2.5 Normal Femoral Neck (Left) 0.654 -1.8 0.5 Osteopenia Total Hip (Left) 0.815 -1.0 0.9 Normal Femoral Neck (Right) 0.621 -2.1 0.2 Osteopenia Total Hip (Right) 0.797 -1.2 0.8 Osteopenia Total Hip Mean 0.806 -1.1 0.9 Osteopenia World Health Organization criteria for BMD impression classify patients as: Normal (T-score at or above -1.0), Osteopenia (T-score between -1.0 and -2.5), or Osteoporosis (T-score at or below -2.5). 10-year Fracture Risk(1): Major Osteoporotic Fracture 13% Hip Fracture 4.0% Reported Risk Factors: [place] (), Neck BMD=0.621, BMI=20.8 (1) FRAX(R) Version 3.08. Fracture probability calculated for an untreated patient. Fracture probability may be lower if the patient has received treatment. Previous Exams: Region Exam Age BMD T-score BMD Change BMD Change Date g/cm2 vs Baseline vs Previous AP Spine (L1,L3-L4) 11/17/2022 77 1.040 -0.1 -0.048 (-4.4%) -0.048 (-4.4%) 04/15/2015 69 1.088 0.3 Total Hip(Left) 11/17/2022 77 0.815 -1.0 -0.088 (-9.8%) -0.057 (-6.6%) 07/11/2019 74 0.872 -0.6 -0.031 (-3.5%) -0.031 (-3.5%) 04/15/2015 69 0.903 -0.3 Total Hip(Right) 11/17/2022 77 0.797 -1.2 -0.117 (-12.8% -0.080 (-9.1%) 07/11/2019 74 0.878 -0.5 -0.037 (-4.0%) -0.037 (-4.0%) 04/15/2015 69 0.914 -0.2 *Denotes significance at 95% confidence level, LSC for AP Spine = 0.022 g/cm2, LSC for Total Hip = 0.027 g/cm2 Clinical Information Provided by Patient: Has used the following medications: Vitamin D Has the following medical conditions: Cancer, Inflammatory bowel diseases, Hysterectomy Patient maximum height was 65 Menopause Age: 49 No regular weight bearing exercise Onset of menses at age 11 Number of children 2 Impression: The patient has low bone mass, based on the Right Femoral Neck T-score. The patient has an estimated ten-year risk of hip fracture of 4% and an estimated ten-year risk of major fracture of 13%, based on the WHO FRAX algorithm.
== END 2022-11-17 12:55 | disposition home or self-care (01) ==
LOC: ANHIMG 12:55
PROVIDERS: PCP Internal Medicine; Visit Provider Nurse Practitioner
DX: Z78.0 Asymptomatic menopausal state (principal); M85.852 Other specified disorders of bone density and structure, left thigh; M85.851 Other specified disorders of bone density and structure, right thigh
CPT/HCPCS: 77080

== ENCOUNTER 2022-12-14 10:22 | Outpatient (CLI) | payer MEDICARE, SELFPAY ==
--- NOTE | ~2022-12-14 | CT_ITS ---
EXAMINATION: CT abdomen pelvis w con INDICATION: Abdominal pain TECHNIQUE: Computed tomographic images of the abdomen and pelvis were obtained after the administrati on of 100 cc of Omnipaque 350 intravenous contrast. The dose-length product (DLP) was 301.67 mGy-cm. Automated exposure control and iterative reconstruction technique were employed. COMPARISON: 06/04/2021 FINDINGS: Minimal dependent atelectasis is present in the lung bases. The heart size is normal. There is a large diverticulum of the second portion of the duodenum which exerts mass effect on the distal common bile duct. The liver, spleen, pancreas, gallbladder, and adrenal glands are normal. Cysts of the kidneys measure up to 9 mm on the right. There is a 1.7 cm enhancing mass in the medial aspect of the left mid kidney. No pathologically enlarged abdominal or pelvic lymph nodes are identified. No f ree intraperitoneal gas or evidence of bowel obstruction. A large volume of colonic stool is present. Colonic diverticulosis is noted. There is colonic wall thickening and adjacent inflammatory change of the distal descending and proximal sigmoid colon. There is mild lumbar spondylosis. IMPRESSION: 1. Findings consistent with uncomplicated distal descending/proximal sigmoid diverticulitis. 2. Constipation. 3. 1.7 cm left kidney mass, consistent with renal cell carcinoma. Urologic evaluation is recommended. Reviewed, dictated and finalized at location L. IMPRESSION: 1. Findings consistent with uncomplicated distal descending/proximal sigmoid di verticulitis. 2. Constipation. 3. 1.7 cm left kidney mass, consistent with renal cell carcinoma. Urologic eval uation is recommended.
== END 2022-12-14 10:23 | disposition home or self-care (01) ==
PROVIDERS: PCP Internal Medicine; Visit Provider Clinical Nurse Specialist
DX: K59.00 Constipation, unspecified (principal); N28.89 Other specified disorders of kidney and ureter; R10.9 Unspecified abdominal pain; Z87.19 Personal history of other diseases of the digestive system
CPT/HCPCS: 74177; Q9967

== ENCOUNTER 2023-02-26 13:39 | Outpatient (CLI) | payer MEDICARE, MEDICAID, SELFPAY ==
--- NOTE | ~2023-02-26 | MR_ITS ---
EXAMINATION: MR lumbar spine wo con DATE: 02/26/2023 14:37 INDICATION: Lumbar radiculopathic pain . TECHNIQUE: Magnetic resonance imaging (MRI) of the lumbar spine was performed without intravenous con trast. Sequences included sagittal T2-weighted FSE, sagittal T2-weighted FS FSE, sagittal T1-weighted FSE, and axial T2-weighted FSE. COMPARISON: 03/25/2015 FINDINGS: The last fully formed and hydrated disc is designated L5-S1. The marrow signal is benign an d homogenous. Conus terminates at L1-2. Multilevel loss of disc height and hydration.. 9 mm right mid pole simple cyst. Left parapelvic cysts. T11-T12: The disc does not extend beyond the endplate margin. There is no facet joint osteoarthritis. There is no neural foraminal stenosis. There is no central canal stenosis. T12-L1: The disc does not extend beyond the endplate margin. There is mild facet joint osteoarthritis . There is no neural foraminal stenosis. There is no central canal stenosis. L1-L2: The disc does not extend beyond the endplate margin. There is mild facet joint osteoarthritis. There is no neural foraminal stenosis. There is no central canal stenosis. L2-L3: Moderate diffuse bulge with a left posterior annular tear. There is moderate facet joint osteo arthritis. There is mild right and moderate left neural foraminal stenosis. There is mild central can al stenosis. L3-L4: Moderate diffuse bulge. There is moderate facet joint osteoarthritis. There is moderate bilate ral neural foraminal stenosis. There is moderate central canal stenosis. L4-L5: Mild diffuse bulge. There is mild facet joint osteoarthritis. There is mild bilateral neural f oraminal stenosis. There is mild central canal stenosis. L5-S1: The disc does not extend beyond the endplate margin. There is mild facet joint osteoarthritis. There is no neural foraminal stenosis. There is no central canal stenosis. IMPRESSION: 1. Multilevel degenerative disc disease, moderate at L2-3 and L3-4. 2. Moderate central canal stenosis at L3-4. 3. Multilevel mild-moderate facet hypertrophy. 4. Multilevel mild-moderate foraminal narrowing. Reviewed, dictated and finalized at location K.
== END 2023-02-26 13:40 | disposition home or self-care (01) ==
PROVIDERS: PCP Internal Medicine; Visit Provider Anesthesiology Pain Medicine
DX: M47.817 Spondylosis without myelopathy or radiculopathy, lumbosacral region (principal); M48.062 Spinal stenosis, lumbar region with neurogenic claudication; M51.16 Intervertebral disc disorders with radiculopathy, lumbar region
CPT/HCPCS: 72148

== ENCOUNTER 2023-03-01 07:02 | Day surgery (SDC) | payer MEDICARE, MEDICAID, SELFPAY ==
[2023-02-21 13:16] VITALS: BMI 20.1
--- NOTE | ~2023-03-01 | XR_ITS ---
EXAMINATION: XR fluoroscopy no charge DATE: 03/01/2023 09:59 INDICATION: Hip pain. TECHNIQUE: 4 intraoperative fluoroscopic views of the right hip were obtained. I was not present. Flu oroscopy exposure time was 22 seconds. COMPARISON: CT abdomen and pelvis 12/14/2022 FINDINGS: There is a needle with contrast in the iliopsoas bursa. A needle with contrast overlies the lateral aspect of the right obturator ring. IMPRESSION: 1. Right pelvic injections. Reviewed, dictated and finalized at location E. IMPRESSION: 1. Right pelvic injections.
--- NOTE | 2023-03-01 07:22 | WPDHPUPDATE1 ---
History and Physical Update Update Date/Time: 03/01/23 07:22 History and Physical has been reviewed, including an updated exam of the patient. There are NO changes in the patient's condition. Risks, benefits, and alternatives have been discussed and questions answered. Patient agrees to proceed with procedure.
--- NOTE | 2023-03-01 07:22 | W.PM.PROC2 ---
Procedure Note - Detailed Date of Procedure 03/01/23 Pre-op Diagnosis Arthralgia right hip Primary osteoarthritis right hip Post-op Diagnosis Same Procedure Performed Diagnostic/Prognostis right femoral and obturator articular nerve branch blocks of right hip under fluoroscopic guidance. Surgeon Dima Lawson MD Sales Secretary None. Anesthesia Local Indications Hip Pain Findings None. Description of Procedure INFORMED CONSENT: Risks, benefits and alternatives to the procedure were discussed in detail with the patient who expressed explicit understanding and consent to proceed. Patient was informed verbally and in written form regarding the risks associated with the procedure including the low risk of serious infection, bleeding/bruising, allergic reaction, nerve injury, paralysis, procedural site pain or discomfort, worsening pain and/or mobility, failure to treat and disfigurement. The patient expressed explicit understanding and consent to proceed. All materials required for the procedure were available prior to procedure start. Site and side was marked prior to procedure and confirmed in the presence of the patient. PROCEDURE IN DETAIL: The patient was brought to the procedural suite and placed in the supine position. Patient was made comfortable with use of pillows under the head/shoulder, knees and ankles. Skin overlying anterior and anterolateral surface of the pelvis and thigh at the level of inguinal crease was prepared broadly with DuraPrep applicator and draped in a sterile manner. Aseptic technique was used throughout. The hip joint of interest was identified in the AP projection and view aligned with the plane of the ipsilateral obturator foramen. Location and course of the femoral artery, vein and accompanying nerve was identified by palpation of the arterial pulse and marked with a sterile skin marker. Local anesthesia was established by infiltration with approximately 3 mL of 0.5% lidocaine via a 1-1/2 inch 27- gauge needle. A 22-gauge 5-inch quincke spinal needle was intermittently advanced in the lateral and superior direction in the AP view (avoiding the course of the femoral vessels) until the needle tip contacted the anterior surface of the medial wall of the obturator foramen. Needle was advanced superiorly until positioned just inferior to the ischial isthmus at the location of the right obturator articular branches. After negative aspiration for blood, CSF or bodily fluid, 0.5 ml of Omnipaque 300 contrast medium was injected demonstrating lack of intra-articular, intravascular dye pattern. After repeat negative aspiration, 0.5ml of 0.5% PF Bupivacaine was injected to effectively block the targeted peripheral nerve. Previously injected contrast was diluted by local anesthetic confirming appropriate spread. No parasthesias elicited. Patient tolerated well. Attention was then turned to the completion of the femoral articular branch block. In the AP projection, a site inferior and lateral to the ipsilateral ASIS was anesthetized by local infiltration with approximately 3 mL of 0.5% lidocaine via a 1-1/2 inch 27-gauge needle. A 22-gauge 5-inch quincke spinal needle was intermittently advanced in medial to lateral direction in the AP view until the needle tip contacted the anterior surface of the superior portion of the acetabulum 5mm superior to the intra-articular space at a point bisecting the femoral head, the approximate location of the right femoral articular branches. After negative aspiration for blood, CSF or bodily fluid, 0.5 ml of the same contrast medium was injected demonstrating lack of intra-articular, intravascular dye pattern. After repeat negative aspiration, 0.5ml of the same local anesthetic mixture was injected to effectively block the targeted peripheral nerve. Previously injected contrast was diluted by local anesthetic confirming appropriate spread. No parasthesias elicited. Patient tolerated the procedure well. Images were s
[2023-03-01 08:10] VITALS: BP 182/86; PULSE 77; RESP 18; TEMP 36.6; O2SAT 98
[2023-03-01 09:25] VITALS: BP 183/76; PULSE 79; RESP 19; O2SAT 98
[2023-03-01] MEDS: BUPivacaine HCL 0.5% 10 ML AMP INFILTRATE (09:29)
[2023-03-01] MEDS: LIDOCAINE HCL 1% PF INJ 5 ML VIAL 4 ML AFFCTD EYE (09:29)
[2023-03-01 09:30] VITALS: BP 148/83; PULSE 78; RESP 20; O2SAT 97
[2023-03-01 09:38] VITALS: BP 155/80; PULSE 80; RESP 18; O2SAT 100
== END 2023-03-01 10:05 | disposition home or self-care (01) ==
PROVIDERS: PCP Internal Medicine; Visit Provider Anesthesiology Pain Medicine
PROC: (CPT 64447; principal; 2023-03-01 09:00)
DX: M16.11 Unilateral primary osteoarthritis, right hip (principal); M25.551 Pain in right hip
CPT/HCPCS: 64447; 64450; 99199

== ENCOUNTER 2023-05-19 13:00 | Outpatient (RCR) | payer MEDICARE, MEDICAID, SELFPAY ==
--- NOTE | 2023-03-29 09:58 | PCPTNOTE ---
Patient called & cancelled scheduled evaluation this date due to being sick
--- NOTE | 2023-04-19 13:35 | OPREHPOC ---
Outpatient Therapy Plan of Care This is a Multidisciplinary Plan of Care that may contain components documented by all disciplines (PT, OT, and ST.) PT Problem 1 PT Problem #1 Knowledge Deficit PT Goal 1 Goal 1* indep with HEP PT Problem 2 PT Problem #2 Impaired Range of Motion PT Goal 1 Goal active cervical rotation in sittin* R 55' 2* L 60' PT Problem 3 PT Problem #3 Pain PT Goal 1 Goal 1* pt report pain rating at worst of 4/10 in neck 2* self assessment Neck Disability index of 14% limitation PT Problem 4 PT Problem #4 Impaired Strength PT Goal 1 Goal increase cervical-scapular strength: 1* pt able to perform 20 reps of mat and sitting exercises 2* pt maintain good shoulder and neck position with exercises
--- NOTE | 2023-04-19 13:35 | PTOPEVAL1 ---
Assessment and note entered by Lori Carolina, PT Evaluation Information Assessment Status Evaluation Diagnosis muscle spasms, lumbar spinal stenosis,cervicalgia, polyosteoarthritis, Onset about 1 year ago Subjective Information multiple diagnosis', states most issues with pain in her neck and wants to start treatment there; about 1 year ago- increase pain and more bothersome, no injury or trauma; has had PT in the past for her neck--ice and exercises; ACTIVITY: use wheeled walker due to Parkinson's and unbalanced; in past 6 months have fallen 3-4x, hit the floor, but lots of times with loss of balance, can catch herself by stepping and not fall; indep with bathing, dressing; live at assisted living facility- they provide cleaning,cooking and laundry services; does not do any exercises for her neck/shoulder Reported Pain Level Pain Score Self Report Additional Pain Score Comments pain range in the past week: 0-7/10: R and L upper traps--tight, spasms,strain increase pain: when up and walking or doing dishes have to sit down to take pressure off neck decrease pain: heating pad, tylenol, pain meds- cyclobenzapr- new script; sleeping through the night is OK but have problems waking up; Assessment PT Clinical Summary Joselyn has multiple diagnosis'. She reports her neck pain is her biggest issue at this time. Her order is dated March 15 with her first PT eval appt was Mar 29, but she called and had to reschedule it. Her self assessment Neck Disability index of 20% functional limitation in activity. She describes her neck pain as debilitating. She is under the care of pain management physician. With the evaluation, she has decreased cervical rotation and side bending to R and L, with spasms and increased tone; she has constant cervical motion due to the Parkinson's; Her shoulder ROM is WNL on R and L; active cervical and shoulder motions do not increase her pain. Skilled PT services are i
--- NOTE | 2023-04-28 11:04 | PCPTNOTE ---
Pt. canceled 04/28/23 appointment noting that she is not feeling well.
--- NOTE | 2023-05-12 13:02 | PCPTNOTE ---
Pt cancelled due to no ride.
--- NOTE | 2023-05-19 14:07 | PCPTNOTE ---
pt was 25 min late for today's reeval appt, had the wrong time noted on her calendar; shorter session today,
--- NOTE | 2023-05-19 14:07 | OPREHPOC ---
Outpatient Therapy Plan of Care This is a Multidisciplinary Plan of Care that may contain components documented by all disciplines (PT, OT, and ST.) PT Problem 1 PT Problem #1 Knowledge Deficit PT Goal 1 Goal 1* indep with HEP Progress Met Comment 05-19-23 progress continue towards goal to progress education/HEP PT Problem 2 PT Problem #2 Impaired Range of Motion PT Goal 1 Goal active cervical rotation in sittin* R 55' 2* L 60' Progress Met Comment 05-19-23 progress met goals NEW GOALS: active cervical ROM in sittin* rotation R 70' 2* rotation L 70' PT Problem 3 PT Problem #3 Pain PT Goal 1 Goal 1* pt report pain rating at worst of 4/10 in neck 2* self assessment Neck Disability index of 14% limitation Progress Partially Met Comment 05-19-23 progress met goal #1--update to 2/10 at worst pain rating goal #2 same PT Problem 4 PT Problem #4 Impaired Strength PT Goal 1 Goal increase cervical-scapular strength: 1* pt able to perform 20 reps of mat and sitting exercises 2* pt maintain good shoulder and neck position with exercises Progress Partially Met Comment 05-19-23 progress improved, continue towards goals
--- NOTE | 2023-05-19 14:07 | PTOPPROG ---
Assessment and note entered by Lori Carolina, PT Evaluation Information Assessment Status Progress Diagnosis muscle spasms, lumbar spinal stenosis,cervicalgia, polyosteoarthritis, Onset about 1 year ago Subjective Information dry needling has been helping and is super; am doing better, but then last night, moved a chair and hurting more; want to continue therapy for more dry needling, to get pain less; PAIN: range in the past week: 0-4 /10; R and L upper traps areas, L has more cramping than R; increase pain: pulling and moving things decrease pain: rest, exercises and stretches, use heat or ice; take tylenol PRN; Assessment PT Clinical Summary Joselyn has received 5 PT sessions. She called/ canceled 2 appointments due to not having a ride. Compared to the initial evaluation: pain rating at the low rating is the same at 0/10 and high rating decreased from 7 to 4/10; cervical active ROM with rotation to R and L improved; Self assessment Neck Disability Index increase by 2% limitation in activity level; continues to have spasms over both R and L upper traps; education for home exercises and posture/positioning. The goals were partially met. Continue PT 1x/wk for dry needling to further decrease pain and spasms; progression of strengthening and HEP/education. Plan of Care Interventions Hot Pack/Cold Pack,Manual Therapy,Neuro Re- education,Patient/Caregiver Educati,Therapeutic Activities,Therapeutic Exercise,Ultrasound,Other Other Interventions dry needling, [facility] PT Services Indicated Yes Treatment Frequency and 1x/wk for 5 weeks Duration These treatments will address the objective and functional deficits as defined above. The patient will be advanced safely and appropriately in order for the patient to progress towards his/her prior level of function. Additional exercises will be introduced and as well as a comprehensive home exercise program upon discharge, if needed, ?to ensure carryover of functional gains achieved in the clinic. This treatment plan has been reviewed and agreement upon by the patient.
--- NOTE | 2023-05-26 11:56 | PCPTNOTE ---
Pt cancelled today due to no ride.
--- NOTE | 2023-06-06 11:50 | PCPTNOTE ---
Patient reports that she hurt her shoulder and is following up with her doctor today to assess. Cancelled today's appointment.
--- NOTE | 2023-06-20 14:12 | PCPTNOTE ---
Patient was a No Show for today's Therapy Progress note.
--- NOTE | 2023-06-27 13:01 | PCPTNOTE ---
pt did not show for today's reeval; called and left voicemail message.
--- NOTE | 2023-07-18 09:47 | PTOPDC ---
Assessment and note entered by Arvin Hui, PT Evaluation Information Assessment Status Discharge - Pt Not Presen Diagnosis muscle spasms, lumbar spinal stenosis,cervicalgia, polyosteoarthritis, Onset about 1 year ago Subjective Information dry needling has been helping and is super; am doing better, but then last night, moved a chair and hurting more; want to continue therapy for more dry needling, to get pain less; PAIN: range in the past week: 0-4 /10; R and L upper traps areas, L has more cramping than R; increase pain: pulling and moving things decrease pain: rest, exercises and stretches, use heat or ice; take tylenol PRN; Assessment PT Clinical Summary Patient is being discharged from Physical Therapy at this time. She has either No Showed/Cancelled her last 5 attempts to perform Progress note. Please refer to last treatment note for discharge status. Plan of Care PT Services Indicated Yes
== END 2023-07-18 09:56 | disposition home or self-care (01) ==
LOC: ANHPT 13:00
PROVIDERS: PCP Internal Medicine; Visit Provider Anesthesiology Pain Medicine
DX: M62.838 Other muscle spasm (principal); M48.062 Spinal stenosis, lumbar region with neurogenic claudication; M54.2 Cervicalgia; M15.9 Polyosteoarthritis, unspecified; G89.29 Other chronic pain
CPT/HCPCS: 97110; 97140; 97161; 99199

== ENCOUNTER 2023-05-27 13:40 | Outpatient (CLI) | payer MEDICARE, MEDICAID, SELFPAY ==
--- NOTE | ~2023-05-27 | XR_ITS ---
XR pelvis 1-2V DATE: 05/27/2023 14:09 INDICATION: Fall 2 weeks ago. Pain bilateral hips. TECHNIQUE: AP views with neutral and frog lateral position of hips COMPARISON: 12/31/2022 right hip FINDINGS: No pelvic fracture or bone destruction. The pubic symphysis and sacroiliac joints are intac t. Mild bilateral hip osteoarthritis. No fracture, dislocation, avascular necrosis or bone destruction o f either hip is detected. IMPRESSION: Mild bilateral hip osteoarthritis Reviewed, dictated and finalized at location B.
== END 2023-05-27 13:41 | disposition home or self-care (01) ==
PROVIDERS: PCP Internal Medicine; Visit Provider Nurse Practitioner
DX: M25.552 Pain in left hip (principal); M25.551 Pain in right hip; W19.XXXA Unspecified fall, initial encounter; M16.0 Bilateral primary osteoarthritis of hip
CPT/HCPCS: 72170

== ENCOUNTER 2023-05-30 18:07 | Emergency (ER) | payer MEDICARE, MEDICAID, SELFPAY ==
--- NOTE | ~2023-05-30 | XR_ITS ---
EXAM: XR shoulder RT min 2V DATE: 05/30/2023 18:47 HISTORY: right shoulder pain after a fall 2 days ago . COMPARISON: None available. FINDINGS: Decreased mineralization. Right axillary surgical clips No fracture or dislocation. No lyt ic or blastic lesion. Mild degenerative change at the AC joint and glenohumeral joint. No erosion or periosteal change. Soft tissues within normal limits. IMPRESSION: No acute osseous finding in the right shoulder. Reviewed, dictated and finalized at location K.
--- NOTE | 2023-05-30 18:12 | ED.UPPEXIN ---
HPI - Extremity Injury (Upper) General Chief Complaint: Extremity Injury, Upper Stated Complaint: upper extremity injury Time Seen by Provider: 05/30/23 18:12 Source: patient Mode of arrival: ambulatory Limitations: no limitations History of Present Illness HPI narrative: Patient is a 78-year-old female who presents with shoulder pain after fall on Tuesday. Patient has been using ice and naproxen with relief of symptoms but it is still painful when she does not take naproxen. Patient denies numbness, tingling or weakness to distal parts of arm. Patient states she is right-handed and using arm throughout the day causes more pain. Denies any head on fall. Patient able to move arm in all directions without pain at this time. Related Data Home Medications Medication Instructions Recorded Confirmed cholecalciferol (vitamin D3) 25 2,000 unit PO DAILY 07/25/19 05/30/23 mcg (1,000 unit) capsule (Vitamin D3) melatonin 5 mg capsule 3 mg PO .qhs PRN Sleep 07/25/19 05/30/23 multivitamin (Daily Multi-Vitamin 1 tablet PO DAILY 07/25/19 05/30/23 tablet) entacapone 200 mg tablet (Comtan) 200 mg PO QID 05/19/21 05/30/23 cyanocobalamin (vitamin B-12) 50 50 mcg PO DAILY 07/30/21 05/30/23 mcg tablet (Vitamin B-12) cyclosporine 0.05 % eye drops in a 1 drp EACH EYE Q12H 09/09/21 05/30/23 dropperette (Restasis) acetaminophen 650 mg 650 mg PO Q6-8H 03/30/22 05/30/23 tablet,extended release (Tylenol Arthritis Pain) venlafaxine 75 mg capsule,extended 225 mg PO DAILY 10/18/22 05/24/23 release 24 hr artificial tears(hypromellose) 0.3 1 drp EACH EYE HS 02/21/23 05/24/23 % eye gel (Systane Gel) Allergies Allergy/AdvReac Type Severity Reaction Status Date / Time chlorhexidine Allergy Intermediate Blister Verified 05/30/23 18:31 [From ChloraPrep Clear] isopropyl alcohol Allergy Intermediate Blister Verified 05/30/23 18:31 [From ChloraPrep Clear] oxycodone Allergy Mild Rash Verified 10/09/23 18:31 soap Allergy Unknown Blister Verified 05/30/23 18:31 Sulfa (Sulfonamide Allergy Unknown RASH Verified 05/30/23 18:31 Antibiotics) Review of Systems Review of Systems: All systems reviewed & are unremarkable except as noted in HPI and below Constitutional: Constitutional: Denies body ache(s), Denies chills, Denies fatigue, Denies fever(s), Denies headache(s), Denies malaise and Denies weakness Eyes: Eyes: Denies blurry vision, Denies irritation and Denies loss of vision ENT: Denies otalgia, Denies headache(s), Denies nasal discharge, Denies sinus pain and Denies sore throat Cardiovascular: Cardiovascular: Denies chest pain, Denies irregular heart rhythm and Denies dyspnea Respiratory: Respiratory: Denies dyspnea Gastrointestinal: Gastrointestinal: Denies abdominal pain, Denies melena, Denies hematochezia, Denies diarrhea, Denies nausea and Denies vomiting Musculoskeletal: Musculoskeletal: Denies back pain, Denies myalgias and Reports arthralgias Integumentary/Breasts: Skin/Breast: Denies pruritus and Denies rash Neurologic: Denies headache(s), Denies loss of vision and Denies weakness Psychiatric: Psychiatric: Reports no additional psychiatric complaints Endocrine: Endocrine: Denies fatigue PMFSH Past Medical History Medical History Abnormal bruising Breast cancer 27 years ago Chicken pox Diverticulitis Diverticulitis large intestine Diverticulosis of colon Dry mouth Encounter for completion of form with patient Encounter for screening laboratory testing for COVID-19 virus in asymptomatic patient Encounter for screening mammogram for breast cancer External hemorrhoid Hepatitis, unspecified Reportedly had Hepatitis C as a child. Hospital discharge follow-up LLQ abdominal pain Measles Mitral valve prolapse Mumps Night sweats Osteopenia Parkinson disease Renal cell carcinoma Skin tear Swelling of both lower extremities Upper respiratory i
[2023-05-30 18:19] VITALS: BP 137/56; PULSE 89; RESP 18; TEMP 36.2; O2SAT 99
[2023-05-30 18:32] VITALS: BP 137/56; PULSE 89; RESP 18; TEMP 36.2; O2SAT 99
== END 2023-05-30 19:26 | disposition home or self-care (01) ==
PROVIDERS: Emergency Provider Nurse Practitioner Family; PCP Internal Medicine
DX: S46.911A Strain of unspecified muscle, fascia and tendon at shoulder and upper arm level, right arm, initial encounter (principal); G20.A1 Parkinson's disease without dyskinesia, without mention of fluctuations; Z79.899 Other long term (current) drug therapy; W19.XXXA Unspecified fall, initial encounter
CPT/HCPCS: 73030; 99213; G0463

== ENCOUNTER 2023-06-20 14:59 | Emergency (ER) | payer MEDICARE, MEDICAID, SELFPAY ==
--- NOTE | ~2023-06-20 | XR_ITS ---
EXAMINATION: XR chest 2V 06/20/2023 15:33 INDICATION: Chest pain and weakness PROCEDURE: 2 view chest COMPARISON: 02/28/2013 FINDINGS: The lungs are clear. The cardiomediastinal silhouette is within normal limits. There are no pleural effusions. There is no pneumothorax suspected. There are surgical clips in the right axi lla. IMPRESSION: 1: NO ACUTE CARDIOPULMONARY DISEASE. Reviewed, dictated and finalized at location A.
[2023-06-20 15:01] VITALS: BP 169/65; PULSE 82; RESP 20; TEMP 36.6; O2SAT 99
--- NOTE | 2023-06-20 15:04 | ECG_ITS ---
Measurements Intervals [place] Rate: 83 P: 58 [place]: 159 QRS: 15 QRSD: 90 T: 54 QT: 353 QTc: 415 Interpretive Statements SINUS RHYTHM POSSIBLE LEFT ATRIAL ENLARGEMENT [-0.1mV P WAVE IN V1/V2] ANTERIOR MYOCARDIAL INFARCTION , PROBABLY OLD [40+ ms Q WAVE AND/OR ST/T ABNORMALITY IN V3/V4] NO PREVIOUS ECG AVAILABLE FOR COMPARISON Electronically Signed On 06-21-2023 11:22:46 CDT by Jessica Zuniga M.D.
--- NOTE | 2023-06-20 15:08 | ED.GENADULT ---
HPI - General Adult General Chief complaint: Chest Pain Stated complaint: myalgias, chest heaviness Time Seen by Provider: 06/20/23 20:37 History of Present Illness HPI narrative: Joselyn Sauceda is a 78 y/o female who [facility] who presents with mid sternal chest pain that started at around [id number], now reports of chest heaviness rating at a 3/10. Reports some SOB off and on. Related Data Home Medications Medication Instructions Recorded Confirmed cholecalciferol (vitamin D3) 25 2,000 unit PO DAILY 07/25/19 05/30/23 mcg (1,000 unit) capsule (Vitamin D3) melatonin 5 mg capsule 3 mg PO .qhs PRN Sleep 07/25/19 05/30/23 multivitamin (Daily Multi-Vitamin 1 tablet PO DAILY 07/25/19 05/30/23 tablet) entacapone 200 mg tablet (Comtan) 200 mg PO QID 05/19/21 05/30/23 cyanocobalamin (vitamin B-12) 50 50 mcg PO DAILY 07/30/21 05/30/23 mcg tablet (Vitamin B-12) cyclosporine 0.05 % eye drops in a 1 drp EACH EYE Q12H 09/09/21 05/30/23 dropperette (Restasis) acetaminophen 650 mg 650 mg PO Q6-8H 03/30/22 05/30/23 tablet,extended release (Tylenol Arthritis Pain) venlafaxine 75 mg capsule,extended 225 mg PO DAILY 10/18/22 05/24/23 release 24 hr artificial tears(hypromellose) 0.3 1 drp EACH EYE HS 02/21/23 05/24/23 % eye gel (Systane Gel) Allergies Allergy/AdvReac Type Severity Reaction Status Date / Time chlorhexidine Allergy Intermediate Blister Verified 06/20/23 20:35 [From ChloraPrep Clear] isopropyl alcohol Allergy Intermediate Blister Verified 06/20/23 20:35 [From ChloraPrep Clear] oxycodone Allergy Mild Rash Verified 06/20/23 20:35 soap Allergy Unknown Blister Verified 06/20/23 20:35 Sulfa (Sulfonamide Allergy Unknown RASH Verified 06/20/23 20:35 Antibiotics) PMFSH Past Medical History Medical History Abnormal bruising Breast cancer 27 years ago Chicken pox Diverticulitis Diverticulitis large intestine Diverticulosis of colon Dry mouth Encounter for completion of form with patient Encounter for screening laboratory testing for COVID-19 virus in asymptomatic patient Encounter for screening mammogram for breast cancer External hemorrhoid Hepatitis, unspecified Reportedly had Hepatitis C as a child. Hospital discharge follow-up LLQ abdominal pain Measles Mitral valve prolapse Mumps Night sweats Osteopenia Parkinson disease Renal cell carcinoma Skin tear Swelling of both lower extremities Upper respiratory infection Surgical History Surgical History History of cosmetic surgery right breast augmentation following her lumpectomy History of eye surgery History of hysterectomy Partial vaginal hysterectomy History of lumpectomy of right breast lumpectomy and radiation for breast cancer History of tubal ligation Hx of total cystectomy Open cystectomy from fallopian tube Family History Family History Other Unknown family medical history Social History Social History Social History: caffeine-soda Smoking status: Never smoker Second hand tobacco smoke exposure: No Alcohol intake: former Substance use: never Substance use type: does not use Lack of Transportation: YES Lack of Food: Never True Current Housing: I Have Housing Concerned About Future Housing: No Difficulty Paying Gas/Electric Bills: No Difficulty Paying for Meds: No Currently Unemployed: No Education: Bachelor's Degree Difficulty w/ Childcare or Family Care: No Living arrangements: assisted living Spiritual care concerns: No Course Vital Signs Vital signs: Vital Signs Temperature 36.6 C 06/20/23 15:01 Pulse Rate 82 06/20/23 15:01 Respiratory Rate 20 06/20/23 15:01 Blood Pressure 169/65 H 06/20/23 15:01 Pulse Oximetry 99 06/20/23 15:01 O
[2023-06-20 17:19] LABS: Basophils Percent Auto 0.5 % (0.2-1.2); Eosinophils Percent Auto 0.3 % (0-4.4); Hematocrit 36.5 % (37.0-47.0); Hemoglobin 12.1 g/dL (12.0-15.0); Immature Granulocyte Absolute 0.01 K/mm3 (0.00-0.031); Immature Granulocyte Percent A 0.2 % (0-0.5); Lymphocytes Absolute Auto 1.57 K/mm3 (0.9-3.2); Lymphocytes Percent Auto 25.4 % (18.3-44.2); Mean Corpuscular HGB Conc 33.2 g/dl (32-36); Mean Corpuscular Hemoglobin 31.8 pg (26-34); Mean Corpuscular Volume 96.1 fl (80-100); Mean Platelet Volume 9.7 fl (7.4-10.4); Monocytes Absolute Auto 0.5 K/mm3 (0.1-0.6); Monocytes Percent Auto 8.6 % (2.6-8.5); Platelet Count Result 256 k/mm3 (150-375); Red Cell Distribution Width 13.7 % (11.5-14.5); White Blood Count 6.2 K/mm3 (4.5-10.0)
[2023-06-20 17:29] LABS: Alanine Aminotransferase 7 U/L (6-35); Albumin Level 4.2 g/dL (3.5-5.1); Alkaline Phosphatase 58 U/L (38-126); Anion Gap 1 mmol/L (8-16); Aspartate Amino Transferase 20 U/L (14-36); Bilirubin,Total 0.6 mg/dL (0.2-1.3); Blood Urea Nitrogen 24 mg/dL (7-17); Calcium 9.8 mg/dL (8.4-10.2); Carbon Dioxide 30 mmol/L (22-30); Chloride 105 mmol/L (98-107); Estimated CRCL calculation 43 ml/min; Estimated Glomerular Filt Rate > 60; Glucose 101 mg/dL (65-110); Sodium 136 mmol/L (137-145)
[2023-06-20 17:41] LABS: Troponin I < 0.012 ng/mL (0.000-0.034)
[2023-06-20 20:29] VITALS: PULSE 95
[2023-06-20 20:32] VITALS: BP 183/73; PULSE 94; RESP 18; O2SAT 100
--- NOTE | 2023-06-20 20:37 | ED.CHESTPAIN ---
HPI - Chest Pain General Chief Complaint: Chest Pain Stated Complaint: myalgias, chest heaviness Time Seen by Provider: 06/20/23 20:37 Source: patient and EMS Mode of arrival: EMS Limitations: no limitations History of Present Illness HPI narrative: 78 years old white female came from assisted living because feeling tired and weak for 1 to 2 days. She denies any fever, chills, nausea, vomiting, respiratory symptoms, chest pain or shortness of breath. History of Parkinson' nonseasonal allergy. Patient does not smoke or drink or uses drugs. Currently patient main complaint is feeling tired. Related Data Home Medications Medication Instructions Recorded Confirmed cholecalciferol (vitamin D3) 25 2,000 unit PO DAILY 07/25/19 05/30/23 mcg (1,000 unit) capsule (Vitamin D3) melatonin 5 mg capsule 3 mg PO .qhs PRN Sleep 07/25/19 05/30/23 multivitamin (Daily Multi-Vitamin 1 tablet PO DAILY 07/25/19 05/30/23 tablet) entacapone 200 mg tablet (Comtan) 200 mg PO QID 05/19/21 05/30/23 cyanocobalamin (vitamin B-12) 50 50 mcg PO DAILY 07/30/21 05/30/23 mcg tablet (Vitamin B-12) cyclosporine 0.05 % eye drops in a 1 drp EACH EYE Q12H 09/09/21 05/30/23 dropperette (Restasis) acetaminophen 650 mg 650 mg PO Q6-8H 03/30/22 05/30/23 tablet,extended release (Tylenol Arthritis Pain) venlafaxine 75 mg capsule,extended 225 mg PO DAILY 10/18/22 05/24/23 release 24 hr artificial tears(hypromellose) 0.3 1 drp EACH EYE HS 02/21/23 05/24/23 % eye gel (Systane Gel) Allergies Allergy/AdvReac Type Severity Reaction Status Date / Time chlorhexidine Allergy Intermediate Blister Verified 06/20/23 20:35 [From ChloraPrep Clear] isopropyl alcohol Allergy Intermediate Blister Verified 06/20/23 20:35 [From ChloraPrep Clear] oxycodone Allergy Mild Rash Verified 06/20/23 20:35 soap Allergy Unknown Blister Verified 06/20/23 20:35 Sulfa (Sulfonamide Allergy Unknown RASH Verified 06/20/23 20:35 Antibiotics) Review of Systems Review of Systems: All systems reviewed & are unremarkable except as noted in HPI and below PMFSH Past Medical History Medical History Abnormal bruising Breast cancer 27 years ago Chicken pox Diverticulitis Diverticulitis large intestine Diverticulosis of colon Dry mouth Encounter for completion of form with patient Encounter for screening laboratory testing for COVID-19 virus in asymptomatic patient Encounter for screening mammogram for breast cancer External hemorrhoid Hepatitis, unspecified Reportedly had Hepatitis C as a child. Hospital discharge follow-up LLQ abdominal pain Measles Mitral valve prolapse Mumps Night sweats Osteopenia Parkinson disease Renal cell carcinoma Skin tear Swelling of both lower extremities Upper respiratory infection Surgical History Surgical History History of cosmetic surgery right breast augmentation following her lumpectomy History of eye surgery History of hysterectomy Partial vaginal hysterectomy History of lumpectomy of right breast lumpectomy and radiation for breast cancer History of tubal ligation Hx of total cystectomy Open cystectomy from fallopian tube Family History Family History Other Unknown family medical history Social History Social History Social History: caffeine-soda Smoking status: Never smoker Second hand tobacco smoke exposure: No Alcohol intake: former Substance use: never Substance use type: does not use Lack of Transportation: YES Lack of Food: Never True Current Housing: I Have Housing Concerned About Future Housing: No Difficulty Paying Gas/Electric Bills: No Difficulty Paying for Meds: No Currently Unemployed: No Education: Bachelor's Degree Difficulty w/ Childcare or Family
[2023-06-20 21:28] LABS: Amorphous Sediment Urine Present; Appearance Urine Cloudy (Clear); Bacteria Urine None Seen /hpf; Bilirubin Urine Negative (Negative); Blood Urine Negative (Negative); Color Urine Yellow (Yellow); Glucose Urine UA Negative (Negative); Ketones Urine Negative (Negative); Leukocyte Esterase Ur Negative LEU/UL (Negative); Nitrate Urine Negative (Negative); Non Pathogenic Casts 0-2; Protein Urine Negative (Negative); RBC Urine 0-2 /hpf (0-2); Specific Grav Ur 1.004 (1.001-1.035); Squamous Epithelial Cell Urine None seen /hpf (Few); Urobilinogen Urine 0.2 mg/dL (<2.0); WBC Urine 0-5 /hpf; pH Urine 7.5 (5.0-9.0)
[2023-06-20 21:30] LABS: Add Urine Microscopic? YES
[2023-06-20 21:47] LABS: Troponin I < 0.012 ng/mL (0.000-0.034)
[2023-06-20 21:52] LABS: Influenza A QL RT-PCR Negative (Negative); Influenza B QL RT-PCR Negative (Negative); RSV RNA, RT-PCR Negative (Negative); SARS-CoV-2 RNA PCR Negative (Negative)
[2023-06-20 22:32] LABS: Creatine Kinase 85 U/L (30-135)
== END 2023-06-20 22:54 ==
PROVIDERS: Nurse Practitioner Family; Emergency Provider Emergency Medicine; PCP Internal Medicine
DX: R53.1 Weakness (principal); G20.A1 Parkinson's disease without dyskinesia, without mention of fluctuations; Z20.822 Contact with and (suspected) exposure to COVID-19; I34.1 Nonrheumatic mitral (valve) prolapse; M85.80 Other specified disorders of bone density and structure, unspecified site; Z86.19 Personal history of other infectious and parasitic diseases; Z85.528 Personal history of other malignant neoplasm of kidney; Z85.3 Personal history of malignant neoplasm of breast; Z90.711 Acquired absence of uterus with remaining cervical stump; Z90.6 Acquired absence of other parts of urinary tract; R94.31 Abnormal electrocardiogram [ECG] [EKG]
CPT/HCPCS: 36415; 71046; 80053; 81001; 82550; 84484; 85025; 87637; 93005; 99284

== ENCOUNTER 2023-08-19 12:52 | Outpatient (CLI) | payer MEDICARE, MEDICAID, SELFPAY ==
--- NOTE | ~2023-08-19 | MMUS_ITS ---
EXAMINATION: MM diagnostic jacqueline BI w roberto, US breast RT limited HISTORY: Right breast lump; status post right partial mastectomy for breast cancer TECHNIQUE: ML, MLO, exaggerated lateral CC and CC 3-D tomosynthesis images of both breasts were perfo rmed and synthetic 2-D images were generated. CAD analysis was submitted and interpreted. High resolu tion targeted right breast ultrasound examination at the area of clinical complaint of breast lump wa s performed. COMPARISON: October 07, 2022 bilateral screening mammogram BREAST PARENCHYMAL COMPOSITION: The breasts are heterogeneously dense, which may obscure small masses . FINDINGS: MAMMOGRAPHIC FINDINGS: Occasional left breast, scattered. Extensive calcifications throughout the right breast, benign in ch aracter. No suspicious mass or architectural distortion, malignant calcification, skin thickening or retractio n or significant new or developing density is evident. ULTRASOUND: At the area of clinical complaint of right breast lump at 3:00 8 cm from the nipple there is an irreg ular hypoechoic approximately 5.4 x 4.1 x 5 mm mass with some internal calcifications. Given the history of right breast cancer and interval apparent new mass, also get a biopsy is recomme nded. Presence of calcifications within the lesion should not necessarily preclude biopsy, as there a re calcifications throughout the right breast which may have been engulfed by a soft tissue malignant mass. IMPRESSION: 1. Irregular approximately 5.4 mm mass in the right breast at 3:00 8 cm from nipple, corresponding to palpable lump. Despite the presence of some calcifications within the lesion, ultrasound-guided biop sy is recommended 2. Ultrasound-guided biopsy of right breast 3:00 lesion 8 cm from nipple is recommended BI-RADS category 4, suspicious findings. Reviewed, dictated and finalized at location A. MAKER IMPRESSION: 1. Irregular approximately 5.4 mm mass in the right breast at 3:00 8 cm from ni pple, corresponding to palpable lump. Despite the presence of some calcificatio ns within the lesion, ultrasound-guided biopsy is recommended 2. Ultrasound-guided biopsy of right breast 3:00 lesion 8 cm from nipple is rec ommended BI-RADS category 4, suspicious findings.
== END 2023-08-19 12:53 | disposition home or self-care (01) ==
PROVIDERS: PCP Internal Medicine; Visit Provider Clinical Nurse Specialist
DX: N63.10 Unspecified lump in the right breast, unspecified quadrant (principal); R92.8 Other abnormal and inconclusive findings on diagnostic imaging of breast
CPT/HCPCS: 76642; 77062; 77066; G0279

== ENCOUNTER 2023-09-20 10:40 | Outpatient (CLI) | payer MEDICARE, MEDICAID, SELFPAY ==
--- NOTE | ~2023-09-20 | MMUS_ITS ---
MM post biopsy invasive RT, US breast biopsy RT w image EXAMINATION: US GUIDED NEEDLE BIOPSY WITH VACUUM ASSISTANCE DATE: 09/20/2023 12:29 CHAR FILTER TANK TENDER HEAD INDICATION: Right breast mass seen on recent examination. Ultrasound-guided core biopsy is requested to evaluate for malignancy. TECHNIQUE AND FINDINGS: The risks and potential benefits of the procedure were discussed with the patient, and written inform ed consent was obtained. After sterile preparation of the right breast, 1% lidocaine was utilized fo r local anesthesia. 1% lidocaine with epinephrine was used for deep anesthesia. A 10G vacuum-assisted biopsy gun needle was advanced through to the outer edge of the region of inter est from a medial approach utilizing sonographic guidance. A total of 4 tissue core samples were obt ained through the lesion. An Inrad tissue marker clip was then placed at the biopsy site. Hemostasis was achieved. The patient tolerated procedure well and there was no evidence of immediate complication. The patien t was given verbal instructions partly is from the department. Right breast mammograms to document t issue marker clip placement. The tissue samples were submitted to surgical pathology for histologic a nalysis. IMPRESSION: 1. Successful ultrasound-guided vacuum-assisted biopsy of right breast mass with tissue marker place ment. Tissue marker not positively identified due to extensive calcifications in the right breast and limited breast soft tissue. Please refer to pathology report for histologic analysis. Reviewed, dictated and finalized at location A. FILTER TANK TENDER HEAD IMPRESSION: 1. Successful ultrasound-guided vacuum-assisted biopsy of right breast mass wi th tissue marker placement. Tissue marker not positively identified due to exte nsive calcifications in the right breast and limited breast soft tissue. Please refer to pathology report for histologic analysis.
== END 2023-09-20 10:41 | disposition home or self-care (01) ==
LOC: ANHIMG 10:41
PROVIDERS: PCP Internal Medicine; Visit Provider Clinical Nurse Specialist
DX: R92.8 Other abnormal and inconclusive findings on diagnostic imaging of breast (principal); N64.1 Fat necrosis of breast; N63.10 Unspecified lump in the right breast, unspecified quadrant
CPT/HCPCS: 19083; 88305; A4648

== ENCOUNTER 2024-01-30 12:27 | Outpatient (RCR) | payer MEDICARE, MEDICAID, SELFPAY ==
--- NOTE | 2024-01-30 13:34 | OPREHPOC ---
Outpatient Therapy Plan of Care This is a Multidisciplinary Plan of Care that may contain components documented by all disciplines (PT, OT, and ST.) PT Problem 1 PT Problem #1 Knowledge Deficit PT Goal 1 Goal Sanders with HEP PT Problem 2 PT Problem #2 Impaired Range of Motion PT Goal 1 Goal Improve usha cervical rotation to 60 degrees to improve function field of vision Target Visit 8 PT Problem 3 PT Problem #3 Impaired Balance PT Goal 1 Goal Improve Tinetti by 5 points to reduce fall risk with ambulation Target Visit 8 PT Goal 2 Goal Demonstrate ability to maintain stance on uneven surface without use of usha UEs for 30s with no LOB Target Visit 8
--- NOTE | 2024-01-30 13:34 | PTOPEVAL1 ---
Assessment and note entered by Arvin Hui, PT Evaluation Information Assessment Status Evaluation Diagnosis Cervicalgia, Gait abnormality Onset 1 year ago Subjective Information Reports that she initially started therapy but had to stop due to other issues. She has been taking Naproxen for neck pain and it helps. She feels she has a lot of knots and heat seems to help. She feels that her headaches are tension in nature. She will begin to feel cramping in her neck and as soon as she relaxes or sits she notes decreased pain. She has been trying to ignore her pain but it has been getting worse. She is now noticing tingling in her left arm. It will occasionally travel all the way to her fingers. Reported Pain Level Pain Score 4: Self Report Assessment PT Clinical Summary Patient presents with neck pain increased with postural tension and activity. Limitations noted in ROM. Presents as high fall risk with Tinetti examination. Patient will benefit from skilled therapy for combination of gait and balance training in conjunction with cervical pain relief and mobility improvement. Plan of Care Interventions Gait Training,Hot Pack/Cold Pack,Manual Therapy, Mechanical Traction,Therapeutic Activities, Therapeutic Exercise PT Services Indicated Yes Treatment Frequency and 2x/week for 8 visits Duration These treatments will address the objective and functional deficits as defined above. The patient will be advanced safely and appropriately in order for the patient to progress towards his/her prior level of function. Additional exercises will be introduced and as well as a comprehensive home exercise program upon discharge, if needed, ?to ensure carryover of functional gains achieved in the clinic. This treatment plan has been reviewed and agreement upon by the patient.
--- NOTE | 2024-03-02 10:51 | PCPTNOTE ---
Pt NS however when called pt was hospitalized.
--- NOTE | 2024-03-12 07:49 | PTOPDC ---
Assessment and note entered by Arvin Hui, PT Evaluation Information Assessment Status Discharge - Pt Not Present Diagnosis Cervicalgia, Gait abnormality Onset 1 year ago Subjective Information Reports that she initially started therapy but had to stop due to other issues. She has been taking Naproxen for neck pain and it helps. She feels she has a lot of knots and heat seems to help. She feels that her headaches are tension in nature. She will begin to feel cramping in her neck and as soon as she relaxes or sits she notes decreased pain. She has been trying to ignore her pain but it has been getting worse. She is now noticing tingling in her left arm. It will occasionally travel all the way to her fingers. Assessment PT Clinical Summary Patient initial evaluation performed on 01/30/24. Patient did not return for skilled therapy secondary to hospitalization. Therapy to be held at this time until patient is suitable for return. Plan of Care PT Services Indicated D/C to [facility]
== END 2024-03-12 11:58 | disposition home or self-care (01) ==
LOC: ANHPT 12:27
PROVIDERS: PCP Internal Medicine; Visit Provider Clinical Nurse Specialist
DX: M54.2 Cervicalgia (principal); R26.9 Unspecified abnormalities of gait and mobility; G20.C Parkinsonism, unspecified
CPT/HCPCS: 97110; 97140; 97161

== ENCOUNTER 2024-02-16 15:31 | Emergency (ER) | payer MEDICARE, MEDICAID, SELFPAY ==
--- NOTE | ~2024-02-16 | XR_ITS ---
EXAMINATION: XR chest 1V portable Exam Date/Time: 02/16/2024 19:05 CDT HISTORY: r/o infection Comparison: 06/20/2023. RESULT: Lines, tubes, and devices: Surgical staple in the left chest anterior soft tissues, in stable positi on. Right axillary surgical clips. Lungs and pleura: Senescent changes, otherwise clear. Cardiomediastinal silhouette: Stable. Other: No acute osseous or upper abdominal finding. IMPRESSION: No acute cardiopulmonary process. Reviewed, dictated and finalized at location K.
--- NOTE | ~2024-02-16 | CT_ITS ---
EXAMINATION: CT brain wo con DATE: 02/16/2024 18:16 INDICATION: AMS . TECHNIQUE: Computed tomography (CT) of the head was performed without intravenous contrast. The mA wa s adjusted according to patient size. Iterative reconstruction technique was employed. The dose-lengt h product was 605.33 mGy-cm. COMPARISON: 05/21/2021. FINDINGS: No acute intracranial hemorrhage or extra-axial fluid collection. No hydrocephalus, mass, or herniation. No acute ischemic infarct. Unremarkable dural venous sinus attenuation. No acute osseous abnormality. Trace left mastoid fluid, the remaining aerated spaces are clear. Mild atrophy and chronic white matter change. Atherosclerotic intracranial calcification. Bilateral l ens replacements. Old left basal ganglia lacunar infarct. IMPRESSION: No acute intracranial process. Reviewed, dictated and finalized at location K.
--- NOTE | 2024-02-16 15:49 | ECG_ITS ---
Test Date: 2024-02-16 18:21:53 Measurements Intervals [place] Rate: 87 P: 57 TN: 158 QRS: 8 QRSD: 94 T: 32 QT: 347 QTc: 418 Interpretive Statements SINUS RHYTHM WITH FREQUENT SUPRAVENTRICULAR PREMATURE COMPLEXES POSSIBLE LEFT ATRIAL ENLARGEMENT [-0.1mV P WAVE IN V1/V2] POSSIBLE ANTERIOR MYOCARDIAL INFARCTION , OF INDETERMINATE AGE [30 ms Q WAVE IN V3/V4, OR R < 0.2 mV IN V4] NONSPECIFIC T-WAVE ABNORMALITY ABNORMAL ECG No previous ECG available for comparison Electronically Signed On 02-17-2024 07:22:55 CDT by Yeison Rodriguez M.D.
[2024-02-16 16:00] LABS: Basophils Percent Auto 0.4 % (0.2-1.2); Hematocrit 36.6 % (37.0-47.0); Hemoglobin 12.7 g/dL (12.0-15.0); Immature Granulocyte Absolute 0.01 K/mm3 (0.00-0.031); Immature Granulocyte Percent A 0.2 % (0-0.5); Lymphocytes Percent Auto 24.8 % (18.3-44.2); Mean Corpuscular HGB Conc 34.7 g/dl (32-36); Mean Corpuscular Hemoglobin 33.2 pg (26-34); Mean Corpuscular Volume 95.6 fl (80-100); Mean Platelet Volume 9.5 fl (7.4-10.4); Monocytes Absolute Auto 0.6 K/mm3 (0.1-0.6); Monocytes Percent Auto 11.3 % (2.6-8.5); Neutrophils Absolute Auto 3.3 K/mm3 (1.3-6.7); Neutrophils Percent Auto 63.3 % (45.5-73.1); Platelet Count Result 280 k/mm3 (150-375); Red Blood Count 3.83 M/mm3 (4.2-5.4); Red Cell Distribution Width 12.5 % (11.5-14.5); White Blood Count 5.2 K/mm3 (4.5-10.0)
[2024-02-16 16:11] LABS: INR 1.1; Prothrombin Time 14.2 Seconds (11.1-14.7)
[2024-02-16 16:12] LABS: Alanine Aminotransferase 11 U/L (6-35); Albumin Level 4.5 g/dL (3.5-5.1); Alkaline Phosphatase 61 U/L (38-126); Anion Gap 2 mmol/L (4-12); Aspartate Amino Transferase 55 U/L (14-36); Bilirubin,Total 1.1 mg/dL (0.2-1.3); Blood Urea Nitrogen 21 mg/dL (7-17); Calcium 10.4 mg/dL (8.4-10.2); Carbon Dioxide 31 mmol/L (22-30); Chloride 105 mmol/L (98-107); Estimated CRCL calculation 39 ml/min; Estimated Glomerular Filt Rate 60; Glucose 113 mg/dL (65-110); Partial Thromboplastin Time 31.9 Seconds (22.3-36.8); Potassium 3.6 mmol/L (3.4-5.0); Sodium 138 mmol/L (137-145)
[2024-02-16 17:06] VITALS: BP 166/94; PULSE 85; RESP 20; O2SAT 96
--- NOTE | 2024-02-16 18:23 | ED.AMS ---
HPI - Altered Mental Status General Chief Complaint: Altered Mental Status Stated Complaint: ams Time Seen by Provider: 02/16/24 18:01 History of Present Illness HPI narrative: Patient is a 78-year-old female who presents to the emergency department this evening from [facility] due to concern for altered mental status. Per report, patient feels as though she has been covered in box and was using tweezers to remove the bugs. She also was spraying stem bronchus spray to kill the bugs. Patient does not appear to be altered and is answering my questions appropriately. She is resting comfortably reading a book. She admits that the extended care facility she lives at has an and problem and she was sprained this time to try and kill them. Patient admits that she may have sprained it too much time in a span of 6 hours but other than that denies any additional symptoms. Patient admits that she does have bruising that she noticed but is unsure how she got the bruising, denies any recent falls or trauma. Nursing staff at the extended care facility did also states that they noticed that her parkinsonism have a wheeze. Related Data Home Medications Medication Instructions Recorded Confirmed multivitamin (Daily Multi-Vitamin 1 tablet PO DAILY 07/25/19 12/04/23 tablet) entacapone 200 mg tablet (Comtan) 200 mg PO QID 05/19/21 12/04/23 cyclosporine 0.05 % eye drops in a 1 drp EACH EYE Q12H 09/09/21 12/04/23 dropperette (Restasis) venlafaxine 75 mg capsule,extended 225 mg PO DAILY 10/18/22 12/04/23 release 24 hr Allergies Allergy/AdvReac Type Severity Reaction Status Date / Time chlorhexidine Allergy Intermediate Blister Verified 12/01/23 11:34 [From ChloraPrep Clear] isopropyl alcohol Allergy Intermediate Blister Verified 12/01/23 11:34 [From ChloraPrep Clear] oxycodone Allergy Mild Rash Verified 12/01/23 11:34 soap Allergy Unknown Blister Verified 12/01/23 11:34 Sulfa (Sulfonamide Allergy Unknown RASH Verified 12/01/23 11:34 Antibiotics) Review of Systems Review of Systems: All systems are reviewed and are negative unless stated otherwise in the HPI. [facility] Past Medical History Medical History Abnormal bruising Breast cancer 27 years ago Chicken pox Diverticulitis Diverticulitis large intestine Diverticulosis of colon Dry mouth Encounter for completion of form with patient Encounter for screening laboratory testing for COVID-19 virus in asymptomatic patient Encounter for screening mammogram for breast cancer External hemorrhoid Hepatitis, unspecified Reportedly had Hepatitis C as a child. Hospital discharge follow-up LLQ abdominal pain Measles Mitral valve prolapse Mumps Night sweats Osteopenia Parkinson disease Renal cell carcinoma Skin tear Swelling of both lower extremities Upper respiratory infection Surgical History Surgical History History of cosmetic surgery right breast augmentation following her lumpectomy History of eye surgery History of hysterectomy Partial vaginal hysterectomy History of lumpectomy of right breast lumpectomy and radiation for breast cancer History of tubal ligation Hx of total cystectomy Open cystectomy from fallopian tube Family History Family History Other Unknown family medical history Social History Social History Social History: caffeine-soda Smoking status: Never smoker Second hand tobacco smoke exposure: No Alcohol intake: former Substance use: never Substance use type: does not use Living arrangements: assisted living Spiritual care concerns: No Exam Narrative: General: Alert, awake, afebrile, in no acute distress. HEENT: PERRL, no rhinorrhea, no post nasal drip, oropharynx clear. Cardiovas
[2024-02-16 18:41] LABS: Appearance Urine Clear (Clear); Bilirubin Urine Negative (Negative); Blood Urine Negative (Negative); Color Urine Dark Yellow (Yellow); Glucose Urine UA Negative (Negative); Ketones Urine 1+ mg/dL (Negative); Leukocyte Esterase Ur Negative LEU/UL (Negative); Nitrate Urine Negative (Negative); Protein Urine Negative (Negative); Specific Grav Ur 1.019 (1.001-1.035); Urobilinogen Urine 0.2 mg/dL (<2.0); pH Urine 6.5 (5.0-9.0)
[2024-02-16 18:51] LABS: Add Urine Microscopic? NO
[2024-02-16 19:59] VITALS: BP 147/86; PULSE 68; RESP 18; O2SAT 98
== END 2024-02-16 20:35 ==
PROVIDERS: Emergency Provider Emergency Medicine; PCP Internal Medicine
DX: G20.A1 Parkinson's disease without dyskinesia, without mention of fluctuations (principal); I34.1 Nonrheumatic mitral (valve) prolapse; M85.80 Other specified disorders of bone density and structure, unspecified site; Z85.3 Personal history of malignant neoplasm of breast; Z85.528 Personal history of other malignant neoplasm of kidney; Z90.711 Acquired absence of uterus with remaining cervical stump; Z79.899 Other long term (current) drug therapy; I49.1 Atrial premature depolarization; R94.31 Abnormal electrocardiogram [ECG] [EKG]
CPT/HCPCS: 36415; 70450; 71045; 80053; 81003; 85025; 85610; 85730; 93005; 99284

== ENCOUNTER 2024-02-24 19:59 | Emergency (ER) | payer MEDICARE, MEDICAID, SELFPAY ==
--- NOTE | ~2024-02-24 | CT_ITS ---
CT brain wo con Ordering provider: Johny Delgadillo MD History: 78 years Female with . Fall . Comparison: February 16, 2024 Technique: CT of the head without contrast. Radiation reduction technique utilized. DLP is 681 mGy. FINDINGS: BRAIN PARENCHYMA AND CSF SPACES: Small subdural hematoma is seen in the right frontoparietal area wit h thickness of 2 mm. Deep white matter ischemic changes with mild brain atrophy and mild ventricular dilatation. Atherosclerotic changes of the supraclinoid carotid arteries. No midline shift, mass effe ct . The brain parenchyma and CSF spaces are otherwise normal. VISUALIZED PARANASAL SINUSES: Well aerated. MASTOIDS: Well aerated. BONES: The bones appear intact. SOFT TISSUES: Visualized nasopharynx is normal. Superficial soft tissues are normal. IMPRESSION: Small subdural hematoma in the area of the right frontoparietal area of [address] Johny Delgadillo MD Possible calcified with the result of the patient at 10:16 PM on February 24, 2024 Reviewed, dictated and finalized at location A. IMPRESSION: Small subdural hematoma in the area of the right frontoparietal area of [address] Johny Delgadillo MD Possible calcified with the result of the patient at 10:16 PM on February 24, 2024
--- NOTE | ~2024-02-24 | XR_ITS ---
XR chest 1V portable Ordering provider: Melissa Lange PA-C History: 78 years Female with . fall . Comparison: February 16, 2024 FINDINGS: MEDIASTINUM: The cardiac silhouette is not enlarged. LUNGS: No infiltrates, effusions or pneumothorax. OTHER: No free air under the diaphragm. Fractures in the left hemithorax and seventh, eighth and ninth ribs which may be a healed or healing. Degenerative changes of the spine. IMPRESSION: No acute cardiopulmonary pathology. Reviewed, dictated and finalized at location A.
--- NOTE | ~2024-02-24 | CT_ITS ---
CT cervical spine wo con Ordering provider: Johny Delgadillo MD History: . fall . Comparison: None. Technique: CT of the cervical spine was performed without contrast. Sagittal and coronal reformatted images were also obtained and reviewed. Automated exposure control and iterative reconstruction rody hnique were employed. The dose-length product was 681.00 mGy-cm. FINDINGS: VERTEBRAE: No subluxation or acute fracture. The occipital condyles are intact. DISC SPACES: Narrowing of the disc C5-C6 and C6-C7. Multilevel facet joint disease. Multilevel uncove rtebral joint osteoarthritic changes. Multilevel intervertebral foraminal narrowing. PARASPINOUS SOFT TISSUES: Normal. Bilateral carotid atherosclerotic changes. IMPRESSION: No acute osseous abnormality cervical spine. Reviewed, dictated and finalized at location A.
[2024-02-24 20:32] VITALS: BP 158/78; PULSE 85; RESP 20; TEMP 36.6; O2SAT 97
[2024-02-24 22:26] VITALS: BP 152/107; PULSE 85; RESP 24; O2SAT 98
--- NOTE | 2024-02-24 22:39 | ECG_ITS ---
Test Date: 2024-02-24 23:08:29 Measurements Intervals [place] Rate: 82 P: 67 MT: 162 QRS: 34 QRSD: 106 T: 31 QT: 393 QTc: 459 Interpretive Statements SINUS RHYTHM CANNOT R/O SEPTAL INFARCT, AGE INDETERMINATE BORDERLINE ST ABNORMALITY- INF/LAT LEADS ABNORMAL ECG Compared to ECG 02/16/2024 18:21:53 NO SIGNIFICANT CHANGE Electronically Signed On 02-25-2024 07:53:43 CDT by Atul Ronquillo D.O.
--- NOTE | 2024-02-24 22:42 | ED.FALL ---
HPI - Fall General Chief Complaint: Fall <Melissa Lange PA-C - Last Filed: 02/25/24 03:40> Stated Complaint: fall <Melissa Lange PA-C - Last Filed: 02/25/24 03:40> Time Seen by Provider: 02/24/24 22:24 <Melissa Lange PA-C - Last Filed: 02/25/24 03:40> History of Present Illness HPI Narrative: 78-year-old female with a history of Parkinson's disease presents to the emergency department with C-collar in place for fall and head injury. Patient was sent from her local assisted living facility for a fall. She states yesterday she fell and hit her head either on the door the door frame, she is unable to provide specific history on where she was and what caused her to fall, however she does states she thinks she was lightheaded. states she may have had chest pain surrounding the fall but is unable to identify this was certain. States she has been dealing with intermittent and chronic lightheadedness for quite a while and her neurologist has been working her up for this. She states today she thinks she had fallen a few times as well but again is unable to provide further history surrounding the falls. She reports neck pain but states this is chronic. Denies headache, vision changes. She is reporting some tingling in her right shoulder that goes down into her right arm, however states this is again chronic and not new it since yesterday. She denies back pain or extremity injury. She is not anticoagulated. She is requesting to be DNR. She is not anticoagulated. <Melissa Lange PA-C - Last Filed: 02/25/24 03:40> Related Data Home Medications: Home Medications Medication Instructions Recorded Confirmed multivitamin (Daily Multi-Vitamin 1 tablet PO DAILY 07/25/19 12/04/23 tablet) entacapone 200 mg tablet (Comtan) 200 mg PO QID 05/19/21 12/04/23 cyclosporine 0.05 % eye drops in a 1 drp EACH EYE Q12H 09/09/21 12/04/23 dropperette (Restasis) venlafaxine 75 mg capsule,extended 225 mg PO DAILY 10/18/22 12/04/23 release 24 hr <Melissa Lange PA-C - Last Filed: 02/25/24 03:40> Allergies/Adverse Reactions: Allergies Allergy/AdvReac Type Severity Reaction Status Date / Time chlorhexidine Allergy Intermediate Blister Verified 12/01/23 11:34 [From ChloraPrep Clear] isopropyl alcohol Allergy Intermediate Blister Verified 12/01/23 11:34 [From ChloraPrep Clear] oxycodone Allergy Mild Rash Verified 12/01/23 11:34 soap Allergy Unknown Blister Verified 12/01/23 11:34 Sulfa (Sulfonamide Allergy Unknown RASH Verified 12/01/23 11:34 Antibiotics) <Melissa Lange PA-C - Last Filed: 02/25/24 03:40> Review of Systems Review of Systems: CONSTITUTIONAL: Denies fever, chills, or sweats. EYES: Denies visual changes, redness, or discharge. ENT: Denies rhinorrhea, congestion, sore throat, or otalgia. CARDIOVASCULAR: Denies chest pain, palpitations, or edema. RESPIRATORY: Denies cough or dyspnea. GASTROINTESTINAL: Denies abdominal pain, nausea, vomiting, or diarrhea. GENITOURINARY: Denies dysuria or hematuria. SKIN: Denies rash or itching. MUSCULOSKELETAL: Denies back pain, joint pain, or myalgia. NEUROLOGIC: See HPI PSYCHIATRIC: Denies anxiety or depression. <Melissa Lange PA-C - Last Filed: 02/25/24 03:40> [facility] Past Medical History Medical History: Medical History Abnormal bruising Breast cancer 27 years ago Chicken pox Diverticulitis Diverticulitis large intestine Diverticulosis of colon Dry mouth Encounter for completion of form with patient Encounter for screening laboratory testing for COVID-19 virus in asymptomatic patient Encounter for screening mammogram for breast cancer External hemorrhoid Hepatitis, unspecified Reportedly had Hepatitis C as a child. Hospital discharge follow-up LLQ abdominal pain Measles Mitral valve prolapse Mumps Night sweats Osteopenia Parkinson dis
[2024-02-24 22:58] LABS: Basophils Percent Auto 0.4 % (0.2-1.2); Eosinophils Percent Auto 0.2 % (0-4.4); Hematocrit 33.9 % (37.0-47.0); Hemoglobin 11.6 g/dL (12.0-15.0); Immature Granulocyte Absolute 0.02 K/mm3 (0.00-0.031); Immature Granulocyte Percent A 0.4 % (0-0.5); Lymphocytes Absolute Auto 0.71 K/mm3 (0.9-3.2); Lymphocytes Percent Auto 13.7 % (18.3-44.2); Mean Corpuscular HGB Conc 34.2 g/dl (32-36); Mean Corpuscular Hemoglobin 32.7 pg (26-34); Mean Corpuscular Volume 95.5 fl (80-100); Mean Platelet Volume 9.7 fl (7.4-10.4); Monocytes Absolute Auto 0.6 K/mm3 (0.1-0.6); Monocytes Percent Auto 10.8 % (2.6-8.5); Neutrophils Absolute Auto 3.9 K/mm3 (1.3-6.7); Neutrophils Percent Auto 74.5 % (45.5-73.1); Platelet Count Result 312 k/mm3 (150-375); Red Blood Count 3.55 M/mm3 (4.2-5.4); Red Cell Distribution Width 12.4 % (11.5-14.5); White Blood Count 5.2 K/mm3 (4.5-10.0)
[2024-02-24] MEDS: SODIUM CHLORIDE 0.9% IV 1,000 ML 999 ML IV CONT (23:00)
[2024-02-24 23:04] LABS: Appearance Urine Clear (Clear); Bacteria Urine None Seen /hpf; Bilirubin Urine 1+ (Negative); Blood Urine Negative (Negative); Color Urine Dark Yellow (Yellow); Glucose Urine UA Negative (Negative); Ketones Urine 1+ mg/dL (Negative); Leukocyte Esterase Ur Negative LEU/UL (Negative); Nitrate Urine Negative (Negative); Protein Urine Trace mg/dL (Negative); RBC Urine 0-2 /hpf (0-2); Specific Grav Ur 1.028 (1.001-1.035); Squamous Epithelial Cell Urine Occasional /hpf (Few); WBC Urine 0-5 /hpf (0-3)
[2024-02-24 23:07] LABS: Add Urine Microscopic? YES
[2024-02-24 23:08] LABS: Alanine Aminotransferase 11 U/L (6-35); Albumin Level 4.1 g/dL (3.5-5.1); Alkaline Phosphatase 66 U/L (38-126); Anion Gap 3 mmol/L (4-12); Aspartate Amino Transferase 32 U/L (14-36); Bilirubin,Total 0.8 mg/dL (0.2-1.3); Blood Urea Nitrogen 22 mg/dL (7-17); Calcium 9.9 mg/dL (8.4-10.2); Carbon Dioxide 31 mmol/L (22-30); Chloride 102 mmol/L (98-107); Estimated CRCL calculation 34 ml/min; Estimated Glomerular Filt Rate 60; Glucose 104 mg/dL (65-110); Potassium 3.3 mmol/L (3.4-5.0); Sodium 136 mmol/L (137-145)
[2024-02-24 23:14] VITALS: BP 201/79; PULSE 85; RESP 25; O2SAT 98
[2024-02-24 23:18] VITALS: BP 188/81; PULSE 84
[2024-02-24] MEDS: niCARdipine 20 MG/200 ML 20 MG/200 ML BAG 50 MG IV CONT (23:18)
[2024-02-24 23:21] VITALS: BP 191/82; PULSE 84; RESP 18; O2SAT 99
--- NOTE | 2024-02-24 23:22 | PC.NURSE ---
Confirmed nicardipine rate/hr with GABRIELA Aguilar.
[2024-02-24 23:32] LABS: Influenza A QL RT-PCR Negative (Negative); Influenza B QL RT-PCR Negative (Negative); SARS-CoV-2 RNA PCR Negative (Negative)
[2024-02-24 23:35] LABS: Troponin I 0.038 ng/mL (0.000-0.034)
== END 2024-02-24 23:26 | disposition short-term general hospital (02) ==
PROVIDERS: Emergency Provider Physician Assistant; PCP Internal Medicine
DX: S06.5X0A Traumatic subdural hemorrhage without loss of consciousness, initial encounter (principal); R42 Dizziness and giddiness; R29.6 Repeated falls; Z11.52 Encounter for screening for COVID-19; G20.A1 Parkinson's disease without dyskinesia, without mention of fluctuations; I34.1 Nonrheumatic mitral (valve) prolapse; M85.80 Other specified disorders of bone density and structure, unspecified site; Z66 Do not resuscitate; Z85.3 Personal history of malignant neoplasm of breast; Z85.528 Personal history of other malignant neoplasm of kidney; Z90.711 Acquired absence of uterus with remaining cervical stump; Z79.899 Other long term (current) drug therapy; R94.31 Abnormal electrocardiogram [ECG] [EKG]; W19.XXXA Unspecified fall, initial encounter
CPT/HCPCS: 36415; 70450; 71045; 72125; 80053; 81001; 84484; 85025; 87636; 93005; 96374; 99285; J2404; J7030

== ENCOUNTER 2024-03-30 22:13 | Emergency (ER) | payer MEDICARE, MEDICAID, SELFPAY ==
[2024-03-30 22:42] VITALS: BP 139/65; PULSE 85; RESP 14; TEMP 36.8; O2SAT 98
[2024-03-30] MEDS: TETANUS,DIPHTHERIA,AC PERTUSSIS ADULT (0.5 ML) BOOSTRIX IM (23:33)
--- NOTE | 2024-03-30 23:57 | PC.NURSE ---
Patient report called to alisha Branham at [facility] at [phone]. Patient waiting for transport back to ID. Patient will be transferred back with her chart and belongings.
--- NOTE | 2024-03-31 00:09 | ED.FALL ---
HPI - Fall General Chief Complaint: Fall Stated Complaint: GLF, right hand skin tear History of Present Illness HPI Narrative: patient had a ground level fall, she does have history of Parkinson's, and her right hand got caught on something sharp on the toilet seat. Denies injury anywhere else. Related Data Home Medications Medication Instructions Recorded Confirmed multivitamin (Daily Multi-Vitamin 1 tablet PO DAILY 07/25/19 03/29/24 tablet) entacapone 200 mg tablet (Comtan) 200 mg PO QID 05/19/21 03/29/24 cyclosporine 0.05 % eye drops in a 1 drp EACH EYE Q12H 09/09/21 03/29/24 dropperette (Restasis) venlafaxine 75 mg capsule,extended 225 mg PO DAILY 10/18/22 03/29/24 release 24 hr Allergies Allergy/AdvReac Type Severity Reaction Status Date / Time chlorhexidine Allergy Intermediate Blister Verified 12/01/23 11:34 [From ChloraPrep Clear] isopropyl alcohol Allergy Intermediate Blister Verified 12/01/23 11:34 [From ChloraPrep Clear] oxycodone Allergy Mild Rash Verified 12/01/23 11:34 soap Allergy Unknown Blister Verified 12/01/23 11:34 Sulfa (Sulfonamide Allergy Unknown RASH Verified 12/01/23 11:34 Antibiotics) Review of Systems Review of Systems: All systems reviewed & are unremarkable except as noted in HPI and below PMFSH Past Medical History Medical History Abnormal bruising Breast cancer 27 years ago Chicken pox Diverticulitis Diverticulitis large intestine Diverticulosis of colon Dry mouth Encounter for completion of form with patient Encounter for screening laboratory testing for COVID-19 virus in asymptomatic patient Encounter for screening mammogram for breast cancer External hemorrhoid Hepatitis, unspecified Reportedly had Hepatitis C as a child. Hospital discharge follow-up LLQ abdominal pain Measles Mitral valve prolapse Mumps Night sweats Osteopenia Parkinson disease Renal cell carcinoma Skin tear Swelling of both lower extremities Upper respiratory infection Surgical History Surgical History History of cosmetic surgery right breast augmentation following her lumpectomy History of eye surgery History of hysterectomy Partial vaginal hysterectomy History of lumpectomy of right breast lumpectomy and radiation for breast cancer History of tubal ligation Hx of total cystectomy Open cystectomy from fallopian tube Family History Family History Other Unknown family medical history Social History Social History Social History: caffeine-soda Smoking status: Never smoker Second hand tobacco smoke exposure: No Alcohol intake: former Substance use: never Substance use type: does not use Living arrangements: assisted living Spiritual care concerns: No Exam Narrative: EXAMINATION OF ORGAN SYSTEMS/BODY AREAS: Constitutional: Vital signs per nursing GENERAL:[No acute distress, non-toxic appearing.] HEAD: Normal with no signs of head trauma. EYES: EOMI, conjunctiva normal ENT: Hearing grossly intact LUNGS: Nonlabored breathing. HEART: [Regular rate and rhythm] ABD: No distension EXT: no deformity SKIN: 4 cm skin tear right dorsum hand NEURO: [Alert, shaky. at baseline.] PSYCH: Normal affect Course Vital Signs Vital signs: Vital Signs Temperature 98.2 F 03/30/24 22:42 Pulse Rate 85 03/30/24 22:42 Respiratory Rate 14 03/30/24 22:42 Blood Pressure 139/65 03/30/24 22:42 Pulse Oximetry 98 03/30/24 22:42 Oxygen Delivery Room Air 03/30/24 22:42 Temperature 98.2 F 03/30/24 22:42 Pulse Rate 85 03/30/24 22:42 Respiratory Rate 14 03/30/24 22:42 Blood Pressure 139/65 03/30/24 22:42 Pulse Oximetry 98 03/30/24 22:42 Oxygen Delivery Room Air 03/30/24 22:42
--- NOTE | 2024-03-31 00:22 | PC.NURSE ---
EMS here to transfer patient back to the NH. Patient transferred back to the NH with her chart and belongings.
== END 2024-03-31 00:30 ==
PROVIDERS: Emergency Provider Emergency Medicine; PCP Internal Medicine
DX: S61.411A Laceration without foreign body of right hand, initial encounter (principal); Z23 Encounter for immunization; G20.A1 Parkinson's disease without dyskinesia, without mention of fluctuations; I34.1 Nonrheumatic mitral (valve) prolapse; M85.80 Other specified disorders of bone density and structure, unspecified site; Z85.528 Personal history of other malignant neoplasm of kidney; Z85.3 Personal history of malignant neoplasm of breast; Z90.711 Acquired absence of uterus with remaining cervical stump; Z79.899 Other long term (current) drug therapy; W26.8XXA Contact with other sharp object(s), not elsewhere classified, initial encounter
CPT/HCPCS: 12002; 90471; 90715; 99282

== ENCOUNTER 2024-04-06 20:36 | Emergency (ER) | payer MEDICARE, MEDICAID, SELFPAY ==
--- NOTE | ~2024-04-06 | CT_ITS ---
EXAMINATION: CT brain wo con DATE: 04/06/2024 23:07 INDICATION: Fall with head injury and traumatic subdural hematoma TECHNIQUE: Computed tomography (CT) of the head was performed without intravenous contrast. Sagittal and coronal reconstructions were performed. The mA was adjusted according to patient size. Iterative reconstruction technique was employed. The dose-length product was 681.00 mGy-cm. COMPARISON: head CT dated 02/24/2024 FINDINGS: Anterior frontal scalp hematoma. No calvarial fracture. The prior tiny right parietal subdural hemato ma has resolved. There is a larger but more subtle subdural hematoma overlying the left frontoparieta l region where it measures up to 7 mm in thickness which is new since the prior study but with only m inimally greater than CSF attenuation suggesting this is subacute early chronic. No acute intracrania l hemorrhage, acute infarction or abnormal extra axial fluid collection. Unchanged small old lacunar infarct versus choroid fissure cyst at the inferior aspect of the left basal ganglia. There is mild s cattered white matter hypoattenuation consistent with chronic small vessel ischemic disease. Symmetri c prominence of the sulci consistent with mild age-appropriate diffuse cerebral volume loss. Ventricl es are normal and symmetric. No mass/mass effect. Changes of bilateral intraocular lens replacement. The orbits, paranasal sinuses and mastoid air cells are normal. IMPRESSION: 1. No calvarial fracture or acute intracranial process. 2. Interval resolution of the prior tiny right subdural hematoma but with development of a larger lef t subdural hematoma but with near CSF attenuation suggesting this is subacute to more likely early ch ronic. 3. Age-related changes including mild to moderate diffuse volume loss and mild scattered white matter hypoattenuation consistent with chronic small vessel ischemic disease. 4. Unchanged old cortical infarct versus more likely prominent choroid fissure cyst at the inferior l eft basal ganglia. Reviewed, dictated and finalized at location A. IMPRESSION: 1. No calvarial fracture or acute intracranial process. 2. Interval resolution of the prior tiny right subdural hematoma but with devel opment of a larger left subdural hematoma but with near CSF attenuation suggest ing this is subacute to more likely early chronic. 3. Age-related changes including mild to moderate diffuse volume loss and mild scattered white matter hypoattenuation consistent with chronic small vessel isc hemic disease. 4. Unchanged old cortical infarct versus more likely prominent choroid fissure cyst at the inferior left basal ganglia.
--- NOTE | ~2024-04-06 | CT_ITS ---
EXAMINATION: 1. CT facial & cervical spine wo DATE: 04/06/2024 23:09 INDICATION: Epistaxis post fall TECHNIQUE: 1. Computed tomography (CT) of the maxillofacial region and of the cervical spine were performed with out intravenous contrast. Sagittal and coronal reconstructions of both regions were obtained. Automat ed exposure control and iterative reconstruction technique were employed. The dose-length product was 190.28 mGy-cm. COMPARISON: Cervical spine CT dated 02/24/2024 FINDINGS: Maxillofacial CT: Frontal scalp hematoma. No underlying calvarial fracture. No maxillofacial fractures. Specifically th e nasal bones, mandible, zygomatic arches and santo of the orbits and paranasal sinuses are all intac t. Nasal septum is midline with no fracture. Changes of bilateral intraocular lens replacement. Orbit s are otherwise normal. Mild mucosal thickening in the bilateral ethmoid sinuses. Mastoid air cells a nd middle ear cavities are clear. Normal alignment at the bilateral temporomandibular joints with mod erate left and severe right osteoarthritis. Cervical spine CT: Alignment is normal. Vertebral body heights are normal. No fracture. Severe disc height loss with deg enerative endplate changes and severe uncovertebral osteoarthritis at C5-C6 and C6-C7. Mild disc heig ht loss at C2-C3 through C4-C5. Posterior endplate osteophytes result in mild central canal stenosis at C5-C6. There is multilevel moderate to severe bilateral cervical facet osteoarthritis. There is mo derate neural foraminal stenosis on the right at C5-C6 and C6-C7 and on the left at C4-C5 and C5-C6. Mild stenosis at a few of the additional bilateral cervical neural foramina. Atherosclerotic calcific lesions at the bilateral carotid bulbs. Cervical soft tissues are unremarkable. Visualized portion o f the upper lungs are clear. IMPRESSION: 1. Severe cervical spondylosis. No maxillofacial or cervical fractures. Reviewed, dictated and finalized at location A.
[2024-04-06 20:36] VITALS: BP 118/88; PULSE 87; RESP 16; TEMP 36.6; O2SAT 99
[2024-04-06 22:15] VITALS: BP 120/84; PULSE 86; RESP 15; O2SAT 100
--- NOTE | 2024-04-06 22:33 | ED.FALL ---
HPI - Fall General Chief Complaint: Fall Stated Complaint: fall Time Seen by Provider: 04/06/24 21:51 Source: patient and RN notes reviewed Mode of arrival: EMS Limitations: dementia History of Present Illness HPI Narrative: Patient presents after a fall. It was reported that patient was in the bathroom trying to sit but slipped and struck her head on the toilet. Patient states she was in the bathroom but already seated, attempting to transfer to wheelchair but missed. States she had a nosebleed that stopped. Denies loss of consciousness. Denies being on anticoagulation. Has tremors due to Parkinsons. Notes she has a headache, has not yet taken anything for pain. No anticoagulation per review of medication list from long term. Related Data Home Medications Medication Instructions Recorded Confirmed multivitamin (Daily Multi-Vitamin 1 tablet PO DAILY 07/25/19 03/29/24 tablet) entacapone 200 mg tablet (Comtan) 200 mg PO QID 05/19/21 03/29/24 cyclosporine 0.05 % eye drops in a 1 drp EACH EYE Q12H 09/09/21 03/29/24 dropperette (Restasis) venlafaxine 75 mg capsule,extended 225 mg PO DAILY 10/18/22 03/29/24 release 24 hr Allergies Allergy/AdvReac Type Severity Reaction Status Date / Time chlorhexidine Allergy Intermediate Blister Verified 12/01/23 11:34 [From ChloraPrep Clear] isopropyl alcohol Allergy Intermediate Blister Verified 12/01/23 11:34 [From ChloraPrep Clear] oxycodone Allergy Mild Rash Verified 12/01/23 11:34 soap Allergy Unknown Blister Verified 12/01/23 11:34 Sulfa (Sulfonamide Allergy Unknown RASH Verified 12/01/23 11:34 Antibiotics) [facility] Past Medical History Medical History (Updated 04/08/24 @ 00:00 by Background Daemon) Abnormal bruising Breast cancer 27 years ago Chicken pox Cognitive communication deficit Diverticulitis Diverticulitis large intestine Diverticulosis of colon Dry mouth Encounter for completion of form with patient Encounter for screening laboratory testing for COVID-19 virus in asymptomatic patient Encounter for screening mammogram for breast cancer External hemorrhoid Hepatitis, unspecified Reportedly had Hepatitis C as a child. Hospital discharge follow-up LLQ abdominal pain Measles Mitral valve prolapse Mumps Muscle weakness (generalized) Night sweats Orthostatic hypotension Osteopenia Other abnormalities of gait and mobility Parkinson disease Renal cell carcinoma Skin tear Swelling of both lower extremities Traumatic subdural hemorrhage without loss of consciousness, subsequent encounter Upper respiratory infection Surgical History Surgical History History of cosmetic surgery right breast augmentation following her lumpectomy History of eye surgery History of hysterectomy Partial vaginal hysterectomy History of lumpectomy of right breast lumpectomy and radiation for breast cancer History of tubal ligation Hx of total cystectomy Open cystectomy from fallopian tube Family History Family History Other Unknown family medical history Social History Social History (Updated 04/08/24 @ 15:57 by Tara Ricardo MD) Social History: DNR per [place] documentation including POLST caffeine-soda Smoking status: Never smoker Second hand tobacco smoke exposure: No Alcohol intake: former Substance use: never Substance use type: does not use Living arrangements: assisted living Additional living arrangements comments: [facility] since 03/17/24 Spiritual care concerns: No Exam Narrative: GENERAL: Well-appearing, well-nourished, and in no acute distress. HEAD: Frontal scalp hematoma over left eye. Superficial laceration/abrasion not amenable to suture. Bleeding well controlled. EYES: Non injected, non icteric ENT: Nares clear, no rhinorrhea. Dried blood at external portion. Friab
[2024-04-06] MEDS: ACETAMINOPHEN 500 MG TABLET 1000 MG PO (22:51)
[2024-04-06 23:43] VITALS: PULSE 75; RESP 16; O2SAT 97
== END 2024-04-07 01:30 ==
PROVIDERS: Emergency Provider Student in an Organized Health Care Education/Training Program; PCP Family Medicine
DX: S00.03XA Contusion of scalp, initial encounter (principal); R04.0 Epistaxis; R29.6 Repeated falls; S06.5XAD Traumatic subdural hemorrhage with loss of consciousness status unknown, subsequent encounter; M47.812 Spondylosis without myelopathy or radiculopathy, cervical region; G20.A1 Parkinson's disease without dyskinesia, without mention of fluctuations; I34.1 Nonrheumatic mitral (valve) prolapse; M85.80 Other specified disorders of bone density and structure, unspecified site; Z85.3 Personal history of malignant neoplasm of breast; Z66 Do not resuscitate; Z85.528 Personal history of other malignant neoplasm of kidney; Z90.711 Acquired absence of uterus with remaining cervical stump; W18.12XA Fall from or off toilet with subsequent striking against object, initial encounter; X58.XXXD Exposure to other specified factors, subsequent encounter
CPT/HCPCS: 70450; 70486; 72125; 99284; A9270

== ENCOUNTER 2024-04-10 12:05 | Emergency (ER) | payer MEDICARE, MEDICAID, SELFPAY ==
[2024-04-10] VITALS (16 sets, daily range): BP systolic 150–171; BP diastolic 65–85; PULSE 74–99; RESP 18–41; TEMP 36.5; O2SAT 94–100
--- NOTE | ~2024-04-10 | XR_ITS ---
EXAMINATION: XR chest 1V DATE: 04/10/2024 12:44 INDICATION: Syncope. Weakness. TECHNIQUE: A single frontal view of the chest was obtained. COMPARISON: Chest single view 02/24/2024 FINDINGS: There is no pneumonia, pleural effusion, or pneumothorax. The heart size is normal. There a re old healed left rib fractures. There are surgical clips in right axilla. IMPRESSION: 1. No acute cardiopulmonary disease. Reviewed, dictated and finalized at location A.
--- NOTE | ~2024-04-10 | CT_ITS ---
EXAMINATION: CT brain wo con DATE: 04/10/2024 12:43 INDICATION: Syncope. TECHNIQUE: Computed tomography (CT) of the head was performed without intravenous contrast. The mA wa s adjusted according to patient size. Iterative reconstruction technique was employed. The dose-lengt h product was 681.00 mGy-cm. COMPARISON: Head CT 04/06/2024, 02/24/24 FINDINGS: There is a chronic left frontal parietal subdural hematoma with maximum thickness of 8 mm t hat is hypodense to quigley matter. There are scattered areas of low attenuation in the cerebral white m atter, which is within normal limits for the patient's age. There is no acute ischemic infarct or abn ormal mass lesion. The ventricles are normal in size. The paranasal sinuses are clear. There are like ly changes of ocular lens replacement surgeries. The mastoid air cells are normal. IMPRESSION: 1. Stable chronic left frontal parietal subdural hematoma. Reviewed, dictated and finalized at location A.
--- NOTE | 2024-04-10 12:13 | ECG_ITS ---
Test Date: 2024-04-10 12:11:25 Measurements Intervals [place] Rate: 79 P: 68 TN: 155 QRS: 3 QRSD: 104 T: 84 QT: 394 QTc: 452 Interpretive Statements SINUS RHYTHM SEPTAL MYOCARDIAL INFARCTION , PROBABLY OLD [40+ ms Q WAVE IN V1/V2] Compared to ECG 02/24/2024 23:08:29 No significant changes Electronically Signed On 04-10-2024 15:19:47 CDT by Jessica Zuniga M.D.
--- NOTE | 2024-04-10 12:14 | ED.SYNCOPE ---
HPI - Syncope General Chief Complaint: Syncope Stated Complaint: syncopal Time Seen by Provider: 04/10/24 12:05 Source: patient and EMS Mode of arrival: EMS Limitations: no limitations History of Present Illness HPI narrative: 78 years old white female history of Parkinson's disease came to the emergency room by ambulance from custodial because of a syncope. Currently patient is asymptomatic except dry mouth. Patient is telling me she does not remember the syncope was just getting off the toilet and was told by the staff that she blacked out. She denies any pain or any new symptoms today. Patient is awake, alert oriented x4 with uncontrolled involuntary movement all over. Patient reports history of lightheadedness with intermittent severe lightheadedness. Currently no lightheadedness. Patient is telling me that she had a fall 3 days ago and came to the emergency room at that time. She denies any fever, chills, nausea, vomiting, chest pain, shortness of breath, headache, neck pain or back pain Related Data Home Medications Medication Instructions Recorded Confirmed multivitamin (Daily Multi-Vitamin 1 tablet PO DAILY 07/25/19 03/29/24 tablet) entacapone 200 mg tablet (Comtan) 200 mg PO QID 05/19/21 03/29/24 cyclosporine 0.05 % eye drops in a 1 drp EACH EYE Q12H 09/09/21 03/29/24 dropperette (Restasis) venlafaxine 75 mg capsule,extended 225 mg PO DAILY 10/18/22 03/29/24 release 24 hr Allergies Allergy/AdvReac Type Severity Reaction Status Date / Time chlorhexidine Allergy Intermediate Blister Verified 12/01/23 11:34 [From ChloraPrep Clear] isopropyl alcohol Allergy Intermediate Blister Verified 12/01/23 11:34 [From ChloraPrep Clear] oxycodone Allergy Mild Rash Verified 12/01/23 11:34 soap Allergy Unknown Blister Verified 12/01/23 11:34 Sulfa (Sulfonamide Allergy Unknown RASH Verified 12/01/23 11:34 Antibiotics) Review of Systems Review of Systems: All systems reviewed & are unremarkable except as noted in HPI and below PMFSH Past Medical History Medical History Abnormal bruising Breast cancer 27 years ago Chicken pox Cognitive communication deficit Diverticulitis Diverticulitis large intestine Diverticulosis of colon Dry mouth Encounter for completion of form with patient Encounter for screening laboratory testing for COVID-19 virus in asymptomatic patient Encounter for screening mammogram for breast cancer External hemorrhoid Hepatitis, unspecified Reportedly had Hepatitis C as a child. Hospital discharge follow-up LLQ abdominal pain Measles Mitral valve prolapse Mumps Muscle weakness (generalized) Night sweats Orthostatic hypotension Osteopenia Other abnormalities of gait and mobility Parkinson disease Renal cell carcinoma Skin tear Swelling of both lower extremities Traumatic subdural hemorrhage without loss of consciousness, subsequent encounter Upper respiratory infection Surgical History Surgical History History of cosmetic surgery right breast augmentation following her lumpectomy History of eye surgery History of hysterectomy Partial vaginal hysterectomy History of lumpectomy of right breast lumpectomy and radiation for breast cancer History of tubal ligation Hx of total cystectomy Open cystectomy from fallopian tube Family History Family History Other Unknown family medical history Social History Social History Social History: DNR per [place] documentation including POLST caffeine-soda Smoking status: Never smoker Second hand tobacco smoke exposure: No Alcohol intake: former Substance use: never Substance use type: does not use Living arrangements: assisted living Additional living arrangements comments: [facility]
[2024-04-10 12:26] LABS: Basophils Percent Auto 0.7 % (0.2-1.2); Eosinophils Percent Auto 0.6 % (0-4.4); Hematocrit 39.1 % (37.0-47.0); Hemoglobin 13.5 g/dL (12.0-15.0); Immature Granulocyte Absolute 0.01 K/mm3 (0.00-0.031); Immature Granulocyte Percent A 0.2 % (0-0.5); Lymphocytes Absolute Auto 0.88 K/mm3 (0.9-3.2); Lymphocytes Percent Auto 16.3 % (18.3-44.2); Mean Corpuscular HGB Conc 34.5 g/dl (32-36); Mean Corpuscular Hemoglobin 33.3 pg (26-34); Mean Corpuscular Volume 96.5 fl (80-100); Mean Platelet Volume 8.9 fl (7.4-10.4); Monocytes Absolute Auto 0.4 K/mm3 (0.1-0.6); Monocytes Percent Auto 7.6 % (2.6-8.5); Neutrophils Percent Auto 74.6 % (45.5-73.1); Platelet Count Result 263 k/mm3 (150-375); Red Blood Count 4.05 M/mm3 (4.2-5.4); Red Cell Distribution Width 12.6 % (11.5-14.5); White Blood Count 5.4 K/mm3 (4.5-10.0)
[2024-04-10 12:44] LABS: Prothrombin Time 13.6 Seconds (11.1-14.7)
[2024-04-10 12:45] LABS: Partial Thromboplastin Time 30.7 Seconds (22.3-36.8)
[2024-04-10 12:46] LABS: Alanine Aminotransferase 10 U/L (6-35); Alkaline Phosphatase 53 U/L (38-126); Anion Gap 7 mmol/L (4-12); Aspartate Amino Transferase 42 U/L (14-36); Blood Urea Nitrogen 17 mg/dL (7-17); Calcium 10.1 mg/dL (8.4-10.2); Carbon Dioxide 35 mmol/L (22-30); Chloride 93 mmol/L (98-107); Estimated CRCL calculation 39 ml/min; Estimated Glomerular Filt Rate > 60; Glucose 143 mg/dL (65-110); Potassium 3.3 mmol/L (3.4-5.0); Sodium 135 mmol/L (137-145)
[2024-04-10 12:47] LABS: Troponin I 0.021 ng/mL (0.000-0.034)
[2024-04-10 14:16] LABS: Add Urine Microscopic? YES; Appearance Urine Clear (Clear); Bacteria Urine None Seen /hpf; Bilirubin Urine Negative (Negative); Blood Urine Negative (Negative); Color Urine Dark Yellow (Yellow); Glucose Urine UA Negative (Negative); Ketones Urine 1+ mg/dL (Negative); Leukocyte Esterase Ur 1+ LEU/UL (Negative); Need Manual Microscopic Reviewed; Nitrate Urine Negative (Negative); Non Pathogenic Casts 0-2; Protein Urine Trace mg/dL (Negative); RBC Urine 0-2 /hpf (0-2); Specific Grav Ur 1.026 (1.001-1.035); Squamous Epithelial Cell Urine None Seen /hpf (Few); WBC Urine 0-5 /hpf (0-3); pH Urine 5.5 (5.0-9.0)
== END 2024-04-10 15:50 ==
PROVIDERS: Emergency Provider Emergency Medicine; PCP Family Medicine
DX: R55 Syncope and collapse (principal); G20.A1 Parkinson's disease without dyskinesia, without mention of fluctuations; I34.1 Nonrheumatic mitral (valve) prolapse; M85.80 Other specified disorders of bone density and structure, unspecified site; R41.841 Cognitive communication deficit; Z66 Do not resuscitate; Z85.3 Personal history of malignant neoplasm of breast; Z85.528 Personal history of other malignant neoplasm of kidney; Z90.711 Acquired absence of uterus with remaining cervical stump; R94.31 Abnormal electrocardiogram [ECG] [EKG]; Z79.899 Other long term (current) drug therapy
CPT/HCPCS: 36415; 70450; 71045; 80053; 81001; 84484; 85025; 85610; 85730; 93005; 99284

== ENCOUNTER 2024-04-12 10:40 | Emergency (ER) | payer MEDICARE, MEDICAID, SELFPAY ==
[2024-04-12] VITALS (11 sets, daily range): BP systolic 127–197; BP diastolic 73–91; PULSE 73–89; RESP 17–21; TEMP 36.7–36.8; O2SAT 97–100
--- NOTE | ~2024-04-12 | XR_ITS ---
EXAMINATION: XR chest 1V portable DATE: 04/12/2024 11:52 INDICATION: Lightheadedness. TECHNIQUE: A single frontal view of the chest was obtained. COMPARISON: Chest view 04/10/2024 FINDINGS: There is no pneumonia, pleural effusion, or pneumothorax. The heart size is normal. There a re old healed bilateral rib fractures. Surgical clips overlie the chest. IMPRESSION: 1. No acute cardiopulmonary disease. Reviewed, dictated and finalized at location A.
--- NOTE | 2024-04-12 11:01 | ECG_ITS ---
Test Date: 2024-04-12 11:56:28 Measurements Intervals [place] Rate: 78 P: 50 TN: 152 QRS: -21 QRSD: 95 T: 54 QT: 376 QTc: 428 Interpretive Statements SINUS RHYTHM SEPTAL MYOCARDIAL INFARCTION , OLD Compared to ECG 04/10/2024 12:11:25 No significant changes Electronically Signed On 04-12-2024 15:17:04 CDT by Jessica Zuniga M.D.
[2024-04-12 11:41] LABS: Basophils Percent Auto 0.6 % (0.2-1.2); Eosinophils Percent Auto 0.5 % (0-4.4); Hematocrit 38.4 % (37.0-47.0); Hemoglobin 13.3 g/dL (12.0-15.0); Immature Granulocyte Absolute 0.02 K/mm3 (0.00-0.031); Immature Granulocyte Percent A 0.3 % (0-0.5); Lymphocytes Absolute Auto 1.12 K/mm3 (0.9-3.2); Lymphocytes Percent Auto 18.1 % (18.3-44.2); Mean Corpuscular HGB Conc 34.6 g/dl (32-36); Mean Corpuscular Hemoglobin 33.3 pg (26-34); Mean Corpuscular Volume 96.2 fl (80-100); Mean Platelet Volume 9.1 fl (7.4-10.4); Monocytes Absolute Auto 0.6 K/mm3 (0.1-0.6); Monocytes Percent Auto 10.3 % (2.6-8.5); Neutrophils Absolute Auto 4.3 K/mm3 (1.3-6.7); Neutrophils Percent Auto 70.2 % (45.5-73.1); Platelet Count Result 282 k/mm3 (150-375); Red Blood Count 3.99 M/mm3 (4.2-5.4); Red Cell Distribution Width 12.6 % (11.5-14.5); White Blood Count 6.2 K/mm3 (4.5-10.0)
[2024-04-12 11:50] LABS: Prothrombin Time 13.5 Seconds (11.1-14.7)
[2024-04-12 11:51] LABS: Partial Thromboplastin Time 30.6 Seconds (22.3-36.8)
[2024-04-12] MEDS: SODIUM CHLORIDE 0.9% IV 1,000 ML 999 ML IV CONT (11:57)
[2024-04-12 12:08] LABS: Alanine Aminotransferase 10 U/L (6-35); Albumin Level 3.9 g/dL (3.5-5.1); Alkaline Phosphatase 56 U/L (38-126); Anion Gap 6 mmol/L (4-12); Aspartate Amino Transferase 34 U/L (14-36); Blood Urea Nitrogen 15 mg/dL (7-17); Carbon Dioxide 34 mmol/L (22-30); Chloride 95 mmol/L (98-107); Estimated Glomerular Filt Rate > 60; Glucose 104 mg/dL (65-110); Potassium 3.3 mmol/L (3.4-5.0); Sodium 135 mmol/L (137-145)
[2024-04-12 14:15] LABS: Add Urine Microscopic? NO; Appearance Urine Clear (Clear); Bilirubin Urine Negative (Negative); Blood Urine Negative (Negative); Color Urine Yellow (Yellow); Glucose Urine UA Negative (Negative); Ketones Urine Trace mg/dL (Negative); Leukocyte Esterase Ur Negative LEU/UL (Negative); Nitrate Urine Negative (Negative); Protein Urine Negative (Negative); Specific Grav Ur 1.017 (1.001-1.035); pH Urine 6.5 (5.0-9.0)
--- NOTE | 2024-04-12 16:20 | ED.SYNCOPE ---
HPI - Syncope General Chief Complaint: Syncope Stated Complaint: SYNCOPY Time Seen by Provider: 04/12/24 10:42 History of Present Illness HPI narrative: Patient is a 78-year-old female who presents ER with reports of lightheadedness. Reports she is trying to urinate and she got lightheaded. She did not lose consciousness. The retirement sent her in to be evaluated. Patient is wheelchair-bound at baseline. She has Parkinson's disease for which she sees neurology at [facility] in the movement clinic. She reports compliance with home medications. Was seen in the ER yesterday her vasovagal syncope. Patient has had no chest pain. No racing heart. She denies fevers or chills. Patient with known chronic subdural hemorrhage that is unchanged on evaluation yesterday. Related Data Home Medications Medication Instructions Recorded Confirmed multivitamin (Daily Multi-Vitamin 1 tablet PO DAILY 07/25/19 03/29/24 tablet) entacapone 200 mg tablet (Comtan) 200 mg PO QID 05/19/21 03/29/24 cyclosporine 0.05 % eye drops in a 1 drp EACH EYE Q12H 09/09/21 03/29/24 dropperette (Restasis) venlafaxine 75 mg capsule,extended 225 mg PO DAILY 10/18/22 03/29/24 release 24 hr Allergies Allergy/AdvReac Type Severity Reaction Status Date / Time chlorhexidine Allergy Intermediate Blister Verified 04/12/24 10:48 [From ChloraPrep Clear] isopropyl alcohol Allergy Intermediate Blister Verified 04/12/24 10:48 [From ChloraPrep Clear] oxycodone Allergy Mild Rash Verified 04/12/24 10:48 soap Allergy Unknown Blister Verified 04/12/24 10:48 Sulfa (Sulfonamide Allergy Unknown RASH Verified 04/12/24 10:48 Antibiotics) Review of Systems Review of Systems: All systems reviewed & are unremarkable except as noted in HPI and below Constitutional: Constitutional: Reports no additional constitutional complaints ENT: Reports system reviewed and no additional complaints, except as documented Cardiovascular: Cardiovascular: Reports no additional cardiovascular complaints Respiratory: Respiratory: Reports no additional respiratory complaints Gastrointestinal: Gastrointestinal: Reports no additional gastrointestinal complaints Neurologic: Denies syncope, Denies headache(s), Denies focal weakness and Denies numbness PMFSH Past Medical History Medical History Abnormal bruising Breast cancer 27 years ago Chicken pox Cognitive communication deficit Diverticulitis Diverticulitis large intestine Diverticulosis of colon Dry mouth Encounter for completion of form with patient Encounter for screening laboratory testing for COVID-19 virus in asymptomatic patient Encounter for screening mammogram for breast cancer External hemorrhoid Hepatitis, unspecified Reportedly had Hepatitis C as a child. Hospital discharge follow-up LLQ abdominal pain Measles Mitral valve prolapse Mumps Muscle weakness (generalized) Night sweats Orthostatic hypotension Osteopenia Other abnormalities of gait and mobility Parkinson disease Renal cell carcinoma Skin tear Swelling of both lower extremities Traumatic subdural hemorrhage without loss of consciousness, subsequent encounter Upper respiratory infection Surgical History Surgical History History of cosmetic surgery right breast augmentation following her lumpectomy History of eye surgery History of hysterectomy Partial vaginal hysterectomy History of lumpectomy of right breast lumpectomy and radiation for breast cancer History of tubal ligation Hx of total cystectomy Open cystectomy from fallopian tube Family History Family History Other Unknown family medical history Social History Social History Social History: DNR per [place] documentation including POLST caffeine-soda Smoking status: Nev
[2024-04-12] MEDS: CARBIDOPA/LEVODOPA 25/100 MG TABLET 3 TABLET PO (17:50)
== END 2024-04-12 19:30 ==
PROVIDERS: Emergency Provider Emergency Medicine; PCP Family Medicine
DX: R42 Dizziness and giddiness (principal); F40.218 Other animal type phobia; G20.A1 Parkinson's disease without dyskinesia, without mention of fluctuations; I34.1 Nonrheumatic mitral (valve) prolapse; S06.5XAD Traumatic subdural hemorrhage with loss of consciousness status unknown, subsequent encounter; M47.812 Spondylosis without myelopathy or radiculopathy, cervical region; M85.80 Other specified disorders of bone density and structure, unspecified site; Z66 Do not resuscitate; Z99.3 Dependence on wheelchair; Z85.3 Personal history of malignant neoplasm of breast; Z85.528 Personal history of other malignant neoplasm of kidney; Z90.711 Acquired absence of uterus with remaining cervical stump; Z79.899 Other long term (current) drug therapy; X58.XXXD Exposure to other specified factors, subsequent encounter; R94.31 Abnormal electrocardiogram [ECG] [EKG]
CPT/HCPCS: 36415; 71045; 80053; 81003; 85025; 85610; 85730; 93005; 96360; 99283; A9270; J7030

== ENCOUNTER 2024-05-02 22:00 | Emergency (ER) | payer MEDICARE, MEDICAID, SELFPAY ==
[2024-05-02] VITALS (11 sets, daily range): BP systolic 152–175; BP diastolic 88–133; PULSE 83–86; RESP 16–32; TEMP 37.1; O2SAT 94–99
--- NOTE | ~2024-05-02 | XR_ITS ---
XR shoulder LT min 2V Ordering provider: Felipa Chance PA-C History: . fall, bruising . Comparison: July 07, 2022 FINDINGS: BONES: No acute fracture or dislocation. Multiple left rib fractures. Evaluation for tenderness advised. JOINT SPACES: The acromioclavicular joint is normal. The glenohumeral joint is normal. SOFT TISSUES: Normal. IMPRESSION: No acute osseous abnormality left shoulder. Multiple left rib fractures evaluation for tenderness advised. Reviewed, dictated and finalized at location A.
--- NOTE | ~2024-05-02 | XR_ITS ---
XR shoulder RT min 2V Ordering provider: Felipa Chance PA-C History: . fall, bruising . Comparison: May 30, 2023 FINDINGS: BONES: No acute fracture or dislocation. JOINT SPACES: The acromioclavicular joint is normal. The glenohumeral joint is normal. SOFT TISSUES: Normal. IMPRESSION: No acute osseous abnormality right shoulder. Reviewed, dictated and finalized at location A.
--- NOTE | ~2024-05-02 | CT_ITS ---
CT facial & cervical spine wo Ordering provider: Felipa Chance PA-C History: . fall, unknown hi . Comparison: None. Technique: Thin slice axial CT of the facial bones was performed without contrast. Coronal and sagit ajith reformatted images were also obtained. . Automated exposure control and iterative reconstruction technique were employed. The dose-length product was 154.28 mGy-cm. FINDINGS: PARANASAL SINUSES: Well aerated. BONES: No facial fracture including no nasal bone fracture. ORBITS AND SUPERFICIAL SOFT TISSUES: The optic globes and orbits are normal. The superficial soft tis sues are normal. VISUALIZED MASTOIDS: Well aerated. LIMITED VISUALIZED BRAIN PARENCHYMA: Normal. IMPRESSION: No facial fracture. MeasuresJa CT facial & cervical spine wo Ordering provider: Felipa Chance PA-C History: . fall, unknown hi . Comparison: None. Technique: CT of the cervical spine was performed without contrast. Sagittal and coronal reformatted images were also obtained and reviewed. Automated exposure control and iterative reconstruction rody hnique were employed. The dose-length product was 154.28 mGy-cm. FINDINGS: VERTEBRAE: No subluxation or acute fracture. The occipital condyles are intact. DISC SPACES: Narrowing of the disc C5-C6 and C6-C7. Multilevel facet joint disease. Multiple uncovert ebral joint osteoarthritic changes. Narrowing of the foramina at the level of C5-C6 and C6-C7 PARASPINOUS SOFT TISSUES: Normal. Bilateral carotid calcifications. IMPRESSION: No acute osseous abnormality cervical spine. Reviewed, dictated and finalized at location A. IMPRESSION: No facial fracture. Hector Liang CT facial & cervical spine wo Ordering provider: Felipa Chance PA-C History: . fall, unknown hi . Comparison: None. Technique: CT of the cervical spine was performed without contrast. Sagittal a nd coronal reformatted images were also obtained and reviewed. Automated expos ure control and iterative reconstruction technique were employed. The dose-santiago th product was 154.28 mGy-cm. FINDINGS: VERTEBRAE: No subluxation or acute fracture. The occipital condyles are intact. DISC SPACES: Narrowing of the disc C5-C6 and C6-C7. Multilevel facet joint dise ase. Multiple uncovertebral joint osteoarthritic changes. Narrowing of the fora mario at the level of C5-C6 and C6-C7 PARASPINOUS SOFT TISSUES: Normal. Bilateral carotid calcifications.
--- NOTE | ~2024-05-02 | XR_ITS ---
XR elbow LT min 3V Ordering provider: Felipa Chance PA-C History: . fall, bruising . Comparison: June 21, 2022 FINDINGS: BONES: No acute fracture or dislocation. JOINT SPACES: Normal. SOFT TISSUES: Normal. No definite joint effusion. IMPRESSION: No acute osseous abnormality left elbow. Reviewed, dictated and finalized at location A.
--- NOTE | ~2024-05-02 | CT_ITS ---
CT brain wo con Ordering provider: Felipa Chance PA-C History: 79 years Female with . fall, unknown hi . Comparison: April 10, 2024 Technique: CT of the head without contrast. Radiation reduction technique utilized. DLP is 908 mGy-cm. FINDINGS: BRAIN PARENCHYMA AND CSF SPACES: Left parietal isodense subdural hematoma is again demonstrated and f ifth small of the previous study measuring 0.7 cm. Mild leukoaraiosis and diffuse cortical atrophy. M ild atheromatous disease. No midline shift, mass effect or hemorrhage. The brain parenchyma and CSF spaces are otherwise normal. VISUALIZED PARANASAL SINUSES: Well aerated. MASTOIDS: Well aerated. BONES: The bones appear intact. SOFT TISSUES: Visualized nasopharynx is normal. Scalp hematoma seen in the left parietal area. Other tovar, Superficial soft tissues are normal. IMPRESSION: No acute intracranial findings. (Isodense subdural hematoma is slightly smaller than the previous study. Reviewed, dictated and finalized at location A.
[2024-05-03] VITALS (12 sets, daily range): BP systolic 93–191; BP diastolic 70–149; PULSE 73–86; RESP 16–31; TEMP 36.6; O2SAT 94–98
--- NOTE | 2024-05-03 00:54 | ED.UPPEXIN ---
HPI - Extremity Injury (Upper) General Chief Complaint: Extremity Injury, Upper Stated Complaint: BRUISING TO LEFT ELBOW, UNKNOWN IF FELL Time Seen by Provider: 05/02/24 22:12 Source: patient Mode of arrival: EMS Limitations: no limitations History of Present Illness HPI narrative: Patient is an 79-year-old female, with past medical history of Parkinson's disease, who presents the ED via EMS with report of a fall. Patient is currently residing at [facility]. She reports she slipped on marble tile floor causing her to fall. She landed on her left side. Complains of pain to her left shoulder and left elbow. She does think she hit her head. States she had a nose bleed afterwards and complains of pain to her nose currently. Denies dizziness, lightheadedness, vision changes. She is not on any anticoagulation. Does report that she sustained a brain bleed in February and was seen at [facility] at that time. Related Data Home Medications Medication Instructions Recorded Confirmed multivitamin (Daily Multi-Vitamin 1 tablet PO DAILY 07/25/19 03/29/24 tablet) entacapone 200 mg tablet (Comtan) 200 mg PO QID 05/19/21 03/29/24 cyclosporine 0.05 % eye drops in a 1 drp EACH EYE Q12H 09/09/21 03/29/24 dropperette (Restasis) venlafaxine 75 mg capsule,extended 225 mg PO DAILY 10/18/22 03/29/24 release 24 hr Allergies Allergy/AdvReac Type Severity Reaction Status Date / Time chlorhexidine Allergy Intermediate Blister Verified 05/03/24 02:02 [From ChloraPrep Clear] isopropyl alcohol Allergy Intermediate Blister Verified 05/03/24 02:02 [From ChloraPrep Clear] oxycodone Allergy Mild Rash Verified 05/03/24 02:02 soap Allergy Unknown Blister Verified 05/03/24 02:02 Sulfa (Sulfonamide Allergy Unknown RASH Verified 05/03/24 02:02 Antibiotics) Review of Systems Review of Systems: All systems reviewed & are unremarkable except as noted in HPI. All systems reviewed & are unremarkable except as noted in HPI and below PMFSH Past Medical History Medical History Abnormal bruising Breast cancer 27 years ago Chicken pox Cognitive communication deficit Diverticulitis Diverticulitis large intestine Diverticulosis of colon Dry mouth Encounter for completion of form with patient Encounter for screening laboratory testing for COVID-19 virus in asymptomatic patient Encounter for screening mammogram for breast cancer External hemorrhoid Hepatitis, unspecified Reportedly had Hepatitis C as a child. Hospital discharge follow-up LLQ abdominal pain Measles Mitral valve prolapse Mumps Muscle weakness (generalized) Night sweats Orthostatic hypotension Osteopenia Other abnormalities of gait and mobility Parkinson disease Renal cell carcinoma Skin tear Swelling of both lower extremities Traumatic subdural hemorrhage without loss of consciousness, subsequent encounter Upper respiratory infection Surgical History Surgical History History of cosmetic surgery right breast augmentation following her lumpectomy History of eye surgery History of hysterectomy Partial vaginal hysterectomy History of lumpectomy of right breast lumpectomy and radiation for breast cancer History of tubal ligation Hx of total cystectomy Open cystectomy from fallopian tube Family History Family History Other Unknown family medical history Social History Social History Social History: DNR per [place] documentation including POLST caffeine-soda Smoking status: Never smoker Second hand tobacco smoke exposure: No Alcohol intake: former Substance use: never Substance use type: does not use Living arrangements: assisted living Additional living arrangements
[2024-05-03] MEDS: traMADol HCL (*CRX) 25 MG TABLET PO (00:57)
[2024-05-03] MEDS: ACETAMINOPHEN 325 MG TABLET 650 MG PO (00:58)
--- NOTE | 2024-05-03 02:09 | PC.NURSE ---
report to maria e at [facility].
== END 2024-05-03 03:00 ==
PROVIDERS: Emergency Provider Physician Assistant; PCP Family Medicine
DX: S46.912A Strain of unspecified muscle, fascia and tendon at shoulder and upper arm level, left arm, initial encounter (principal); S09.90XA Unspecified injury of head, initial encounter; M25.522 Pain in left elbow; W01.0XXA Fall on same level from slipping, tripping and stumbling without subsequent striking against object, initial encounter; G20.B1 Parkinson's disease with dyskinesia, without mention of fluctuations
CPT/HCPCS: 70450; 70486; 72125; 73030; 73080; 99284; A9270